=== PATIENT | female | born 1945 | race Caucasian/White ===

== ENCOUNTER → 2016-06-14 | Outpatient (CLI) | payer BC ==
[~2016-06-14] MED LIST: ACET-1256 PO; ADVIN10/60 INH; ALBUAER INH; ASCAUNK PO; ASCO1CAP3 PO; AZIT250T PO; CHOL2000 PO; CONJ0.3T3 PO; CYAN10005 PO; DICL-201 PO; FEXO1TAB49 PO; FLUO20CA34 PO; GABA1CAP PO; LEVO100T PO; LEVO112T2 PO; MAGN250T3 PO; MISCTAB78 PO; MONT1TAB3 PO; MULT-506 PO; OMEG10002 PO; OMEG10007 PO; OXYC-57 PO; POTA1TAB PO; SNG10 PO; TEMA15CA4 PO; VALA500T60 PO; WARF2TAB PO
== END | disposition home or self-care (01) ==
LOC: C.RDSM 13:15
PROVIDERS: ATTEND Physical Medicine & Rehabilitation Sports Medicine
DX: S73.015A Posterior dislocation of left hip, initial encounter (principal); X58.XXXA Exposure to other specified factors, initial encounter

== ENCOUNTER 2016-08-03 00:18 | Emergency (ER) | payer BC ==
[2016-08-03] VITALS (10 sets, daily range): BP systolic 112–161; BP diastolic 61–91; PULSE 69–81; TEMP 36.7; O2SAT 95–99; Ht 152.4 cm; Wt 61.2 kg
[~2016-08-03] VITALS: Ht 152.4 cm; Wt 61.2 kg
[~2016-08-03 00:18] MED LIST changes: -ASCO1CAP3 PO; -AZIT250T PO; -GABA1CAP PO; -LEVO100T PO; -MISCTAB78 PO; -MONT1TAB3 PO; -OMEG10002 PO; -OXYC-57 PO; -WARF2TAB PO
[2016-08-03] MEDS ORDERED: ONDANSETRON INJ 2 MG/ML 2 ML VIAL IV STA (00:35)
[2016-08-03] MEDS ORDERED: MoRPHine SULFATE 4 MG/ML 1 ML CARP\\VIAL IV PRN (00:45)
[2016-08-03] MEDS ORDERED: ALBUAER INH (00:51)
[2016-08-03] MEDS ORDERED: ASCO1CAP3 PO (00:52)
[2016-08-03] MEDS ORDERED: MONT1TAB3 PO (00:56)
[2016-08-03] MEDS ORDERED: PROPOFOL IV EMULSION 10 MG/ML 20 ML VIAL IV ONE ×2 (00:59→01:23)
--- NOTE | 2016-08-03 01:36 | EMERGENCY ROOM VISIT NOTE ---
ED Visit Note I was approached by my attending physician and asked to help assist in conscious sedation with closed reduction of a LEFT hip dislocation. Please refer to his dictation for entire historical and physical examination information. Procedure as follows: Verbal consent and written consent was obtained prior to procedure. Timeout was performed prior to procedure. After appropriate level of sedation was achieved, traction with internal rotation of the hips eventually provided anatomic alignment of the LEFT hip. Patient tolerated procedure well. No complications were met. Postreduction films confirm anatomic alignment.
[2016-08-03] MEDS ORDERED: ONDANSETRON HOME PACK 4MG OD TAB PO ONE (01:45)
[2016-08-03] MEDS ORDERED: OXYCODONE IR HOME PACK PO ONE (01:45)
--- NOTE | 2016-08-03 01:55 | EMERGENCY ROOM VISIT NOTE ---
History Report prepared by Kel: Lourdes Lopez Under the Supervision of: Dr. Felton Doe D.O. 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 She came to the ED via ambulance from home. The patient states that she fell asleep on the recliner and rolled the wrong when which caused her hip to come out. The patient states that she has experienced a left hip dislocation 5 times in the past with her most recent episode occurring last May. The patient states that her left leg has been sore to the touch recently. Her last time eating was around 1800. She denies abdominal pain along with any other pain. The patient had surgery on her left hip done on October 06, 2006. 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 A total of 10 systems reviewed and were otherwise negative. Past Medical & Surgical Medical Problems: (1) Left knee DJD (2) Lipoma of arm Family History No pertinent family history Social History Smoking Status: Never Smoker Alcohol Use: occasionally Marital Status: Current/Historical Medications Scheduled Ascorbic Acid (Vitamin C), 500 MG PO DAILY Cholecalciferol (Vitamin D3), 1 CAP PO QAM Cyanocobalamin (Vitamin B-12), 1,000 MCG PO QAM Diclofenac (Voltaren), 75 MG PO BID Estrog Conj/Medryoxyprog Acet (Prempro 0.3MG/1.5MG), 1 TAB PO Q2D Fexofenadine Hcl (Marely Allergy), 1 TAB PO QAM Fish Oil (Anderson-3), 1 CAP PO QPM Fluoxetine Hcl (Prozac), 20 MG PO QAM Fluticasone Prop/Salmeterol (Advair Diskus 100/50 60 Dose), 1 PUFF INH BID Levothyroxine Sodium (Synthroid), 112 MCG PO QAM Magnesium (Magnesium 250 mg), 1 TAB PO DINNER Montelukast Sodium (Singulair), 10 MG PO HS Multivitamin (Multivitamin), 1 TAB PO HS Potassium Gluconate (Potassium Gluconate), 2 TAB PO HS Temazepam (Restoril), 15 MG PO HS Scheduled PRN Acetaminophen (Tylenol), 1,000 MG PO QID PRN for Pain Albuterol Sulfate (Proventil Hfa), 2 PUFFS INH QID PRN for Shortness of Breath Valacyclovir (Valtrex), 500 MG PO DAILY PRN for COLD SORE Allergies Coded Allergies: No Known Allergies (Unverified , 08/03/16) Physical Exam Vital Signs Date Time Temp Pulse Resp B/P Pulse Ox O2 Delivery O2 Flow Rate FiO2 08/03/16 02:28 99 Nasal Cannula 2.0 08/03/16 02:24 69 18 138/71 95 08/03/16 01:57 36.7 75 18 141/68 96 Room Air 08/03/16 01:45 72 18 136/61 97 Nasal Cannula 2.0 08/03/16 01:35 73 18 135/70 96 Nasal Cannula 2.0 08/03/16 01:30 77 18 132/63 97 Nasal Cannula 2.0 08/03/16 01:28 08/03/16 01:26 08/03/16 01:25 76 14 112/87 96 Nasal Cannula 2.0 08/03/16 01:21 08/03/16 01:20 78 12 123/67 95 Nasal Cannula 2.0 08/03/16 01:16 08/03/16 01:15 77 14 142/81 96 Nasal Cannula 2.0 08/03/16 01:05 81 18 161/91 98 Nasal Cannula 2.0 08/03/16 00:51 97 Room Air 08/03/16 00:30 70 08/03/16 00:25 36.7 75 16 187/90 99 Room Air Physical Exam GENERAL: Patient is awake, alert, and in no acute distress. Patient is very anxious and uncomfortable appearing. Patient appears to be in significant pain. EYES: The conjunctivae are clear. The pupils are round and reactive. EARS, NOSE, MOUTH AND THROAT: The nose is without any evidence of any deformity. Mucous membranes are moist tongue is midline NECK: The neck is nontender and supple. RESPIRATORY: Normal respiratory effort is noted there is no evidence of wheezing rhonchi or rales CARDIOVASCULAR: Regular rate and rhythm noted there no murmurs rubs or gallops normal S1 normal S2 GASTROINTESTINAL: The abdomen is soft. Bowel sounds are present in all quadrants. Abdomen is nontender MUSCULOSKELETAL/EXTREMITIES: Left leg held in mild flexion. Left hip internally rotated and shortened. SKIN: Pulses symmetric. Skin is warm and dry. There is no obvious evidence of any rash. There are no petechiae, pallor or cyanosis noted. NEUROLOGIC: Patient is awake alert and oriented x3 strength is symmetric patellar reflexes are 2+ bilaterally Medical Decision & Procedures ER Provider Diagnostic Interpretation: X-ray results as stated below per interpretation by me FIRST LEFT HIP X-RAY IMPRESSION: Superior and posteriorly displaced left hip dislocation. Previous surgical replacement noted. POST-REDUCTION LEFT HIP X-RAY IMPRESSION: Anatomic alignment of left hip replacement. Medications Administered Medications (Trade) Dose Ordered Sig/Noe Route Start Time Stop Time Status Last Admin Dose Admin Morphine Sulfate (MoRPHine SULFATE INJ) 4 mg Q15M PRN IV 08/03/16 00:45 08/03/16 02:37 DC 08/03/16 00:55 4 MG Ondansetron HCl (Zofran Inj) 4 mg NOW STAT IV 08/03/16 00:35 08/03/16 00:36 DC 08/03/16 00:55 4 MG Propofol (Diprivan Iv Emulsion 20ml Vial) 200 mg STK-MED ONCE IV 08/03/16 00:59 08/03/16 01:02 DC 08/03/16 02:01 150 MG Ondansetron HCl (ZOFRAN ODT 4MG Home Pack) 1 homepack UD ONCE PO 08/03/16 01:45 08/03/16 01:46 DC 08/03/16 01:45 1 HOMEPACK Oxycodone HCl (Roxicodone Immediate Rel 5MG Home Pack) 1 homepack UD ONCE PO 08/03/16 01:45 08/03/16 01:46 DC 08/03/16 01:45 1 HOMEPACK Procedure Procedural Sedation Indication Left Hip Dislocation. Total time: 25 minutes. Written consent was obtained after the risks and benefits were explained to the patient, including, but not limited to aspiration, allergic reaction, breathing difficulties, cardiac complications, vomiting, pain, event recall, bleeding, and /or infection. Pre-sedation examination and paperwork completed. The patient was on 100% oxygen via NRB prior to the procedure. Continuos end tidal CO2 monitoring, pulse oximetry, and cardiac monitoring were utilized. Suction, airway equipment, medications, respiratory equipment, and appropriate personnel were prepared prior to the initiation of the procedure. A time out was taken. Sedation was achieved utilizing 150 mg of propofol. After I observed the patient had reached the appropriate level of sedation the main procedure was performed without complication. Sedation was discontinued and the monitoring continued. The patient recovered quickly from the effects of the medication without complication or adverse event. ED Course 0033: The patient was evaluated in room A9. A complete history and physical examination were performed. 0035: Ordered Ondansetron HCl 4 mg IV 0045: Ordered Morphine Sulfate 4 mg IV 0059: Ordered Propofol 200 mg IV 0104: I discussed the risks and benefits of the procedure at this time. She is in agreement with the treatment plan. 0111: Sadi Sarkar PA-C and I performed a reduction on the patient's left hip. A procedural sedation was performed prior to the reduction. Refer to the procedure note above for further details of the procedural sedation and refer to Sadi's note for further details about the reduction procedure. 0145: Ordered Oxycodone HCl 1 homepack PO. Ondansetron HCl 1 homepack PO 0148: Upon reevaluation, the patient is doing well. She is no longer on nasal cannula oxygen and her oxygen saturation is stable. I discussed the results and treatment plan with the patient and her . They verbalized agreement of the treatment plan. The patient was discharged home. Medical Decision Prior records reviewed and summarized above. Triage Nursing notes reviewed and agree them. The patient's history was concerning for traumatic injury. Differential diagnosis: Etiologies such as fracture, dislocation, neurovascular compromise, compartment syndrome, soft tissue injury, as well as others were entertained. The patient is a 71-year-old female who presented to the emergency department for an evaluation of atraumatic left hip dislocation. The patient is a history of hip replacement on the left hip some years ago. She has been unfortunate to have multiple episodes of hip dislocation complicating her course after surgery. The patient was treated with IV pain medication in the emergency Department as well as by the prehospital personnel. I discussed the patient's x- ray findings with her. She was evaluated for procedural sedation and I felt she was a good candidate for procedural sedation for closed hip reduction. I reviewed the patient's previous electronic medical records including the previous doses of sedation and she is received. She was treated with sedation in the emergency department and had reduction of the hip performed by KATARZYNA Mata. Please see his note for procedure details. The patient was reevaluated multiple times. On subsequent reevaluation she was feeling much better with less pain in the hip as well as being awake and alert and able to hold and excellent oxygen saturation with no supplemental oxygen. The patient was encouraged to rest and avoid any strenuous activity. She was encouraged to call her primary orthopedic physician in the morning to schedule follow-up appointment. She was also encouraged to return to the emergency department immediately if symptoms change worsen or the need arises. Otherwise she was encouraged to only take clear liquids tonight and advance her diet as tolerated. Impression Primary Impression: Posterior dislocation of left hip Scribe Attestation The scribe's documentation has been prepared under my direction and personally reviewed by me in its entirety. I confirm that the note above accurately reflects all work, treatment, procedures, and medical decision making performed by me. Departure Information Dispostion Home / Self-Care Referrals RV. Kinney MD (PCP) Forms HOME CARE DOCUMENTATION FORM, IMPORTANT VISIT INFORMATION, WORK / SCHOOL INSTRUCTIONS Patient Instructions ED Hip Replace Dislocation Reduc, ED Sedation Procedural Discon, My [facility] Additional Instructions Rest and avoid any strenuous activity. Continue using your hip pillow and sling as instructed. Continue all medications as prescribed. Call your primary orthopedic physician to schedule a follow-up appointment. I would recommend Aleve clear liquids overnight and advance her diet in the morning as tolerated. Return to the emergency department immediately if symptoms change worsen or the need arises. Problem Qualifiers Primary Impression: Posterior dislocation of left hip Encounter type: initial encounter Qualified Codes: S73.015A - Posterior dislocation of left hip, initial encounter
--- NOTE | 2016-08-03 06:34 | DIAGNOSTIC IMAGING REPORT ---
LEFT PELVIS/UNILATERAL HIP 2-3VIEWS CLINICAL HISTORY: fall trauma COMPARISON: None. DISCUSSION: Superior dislocation of a left hip prosthetic. Femoral shaft has migrated superiorly. Acetabular cup is intact. There is no evidence for soft tissue swelling. IMPRESSION: Dislocation left hip prosthetic Electronically signed by: Kaleb Werner M.D. 08/03/2016 6:33 AM Dictated Date/Time: 08/03/2016 6:32 AM
--- NOTE | 2016-08-03 07:15 | DIAGNOSTIC IMAGING REPORT ---
LEFT HIP UNILATERAL 2 VIEWS CLINICAL HISTORY: a9b dislocation COMPARISON: None. DISCUSSION: The bones and joint spaces appear intact. There is no evidence of fracture, dislocation or bony disease. Purposes. Dislocation has been reduced. Alignment is anatomic. IMPRESSION: Anatomic alignment status post closed reduction Electronically signed by: Kaleb Werner M.D. 08/03/2016 7:13 AM Dictated Date/Time: 08/03/2016 7:13 AM
[2016-10-29] MEDS ORDERED: MISCTAB78 PO (08:54)
[2016-10-29] MEDS ORDERED: LEVO100T PO (08:54)
[2017-02-22] MEDS ORDERED: OMEG10002 PO (15:39)
[2017-02-22] MEDS ORDERED: DICL-201 PO (15:39)
== END 2016-08-03 02:27 | disposition home or self-care (01) ==
LOC: EDBD 00:18 → C.EDA 00:21
DX: M24.452 Recurrent dislocation, left hip (principal); X50.1XXA Overexertion from prolonged static or awkward postures, initial encounter; Y92.019 Unspecified place in single-family (private) house as the place of occurrence of the external cause; Z96.642 Presence of left artificial hip joint; M17.9 Osteoarthritis of knee, unspecified; Z79.899 Other long term (current) drug therapy

== ENCOUNTER → 2016-09-08 | Outpatient (CLI) | payer BC ==
[~2016-09-08] MED LIST changes: -ASCAUNK PO; +ASCO1CAP3 PO; +AZIT250T PO; +GABA1CAP PO; +LEVO100T PO; +MISCTAB78 PO; +MONT1TAB3 PO; +OMEG10002 PO; +OXYC-57 PO; -SNG10 PO; +WARF2TAB PO
[2016-09-08 09:39] LABS: BASO % 0.5 %; BASO ABS # 0.03 K/uL (0-0.2); COMPLETE YES; EOS % 4.1 %; HEMATOCRIT 39.1 % (37-47); IG% 0.3 %; LYMPH % 26.1 %; LYMPH ABS # 1.58 K/uL (1.2-3.4); MEAN CELL VOLUME 102.1 fL (80-100); MEAN CORPUSCULAR HEMOGLOBIN 34.5 pg (25-34); MEAN CORPUSCULAR HGB CONC 33.8 g/dl (32-36); MEAN PLATELET VOLUME 10.4 fL (7.4-10.4); MONO % 7.4 %; NEUT % 61.6 %; PLATELET COUNT 161 K/uL (130-400); RED BLOOD COUNT 3.83 M/uL (4.2-5.4); WHITE BLOOD COUNT 6.05 K/uL (4.8-10.8)
[2016-09-08 10:18] LABS: ALT/SGPT 42 U/L (12-78); AST/SGOT 35 U/L (15-37); BLOOD UREA NITROGEN 21 mg/dl (7-18); BUN/CREATININE RATIO 26.1 (10-20); CALCIUM 9.6 mg/dl (8.5-10.1); CARBON DIOXIDE 30 mmol/L (21-32); CHLORIDE 106 mmol/L (98-107); GLUCOSE 78 mg/dl (70-99); POTASSIUM 4.2 mmol/L (3.5-5.1); SODIUM 141 mmol/L (136-145)
[2016-09-08 10:27] LABS: ALB/GLOB RATIO 1.3 (0.9-2); ALKALINE PHOSPHATASE 81 U/L (45-117); THYROID STIMULATING HORMONE 0.251 uIu/ml (0.300-4.500)
== END | disposition home or self-care (01) ==
LOC: C.LAB1850 08:51
PROVIDERS: ATTEND Internal Medicine
DX: E53.8 Deficiency of other specified B group vitamins (principal); E03.9 Hypothyroidism, unspecified; F41.8 Other specified anxiety disorders; J45.909 Unspecified asthma, uncomplicated

== ENCOUNTER → 2016-09-10 | Outpatient (CLI) | payer BC ==
--- NOTE | 2016-09-10 15:35 | MAMMOGRAPHY REPORT ---
BILATERAL DIGITAL SCREENING MAMMOGRAM WITH CAD: 09/10/2016 CLINICAL HISTORY: Routine screening. Patient has no complaints. TECHNIQUE: Current study was also evaluated with a Computer Aided Detection (CAD) system. Bilatera l CC and MLO views were obtained. COMPARISON: Comparison is made to exams dated: 09/05/2015 mammogram, 08/30/2014 mammogram, 08/24/2013 m ammogram, 08/04/2012 mammogram, 07/23/2011 mammogram, and 06/26/2010 mammogram - [facility] enter. BREAST COMPOSITION: The tissue of both breasts is heterogeneously dense, which may obscure small ma sses. FINDINGS: No suspicious masses, calcifications, or areas of architectural distortion are noted in e ither breast. There has been no significant interval change compared to prior exams. Bilateral duy gn-appearing calcifications are not significantly changed, including grouped calcifications within t he left lateral posterior breast at 3:00 which are stable on MLO views dating back to at least the 2 015 exam. Nodular asymmetry in the left medial breast is also stable. IMPRESSION: ACR BI-RADS CATEGORY 2: BENIGN There is no mammographic evidence of malignancy. A 1 year screening mammogram is recommended. The p atient will receive written notification of the results. Approximately 10% of breast cancers are not detected with mammography. A negative mammographic repor t should not delay biopsy if a clinically suggestive mass is present. Susan Prince M.D. /:09/10/2016 14:06:45 Banquet Pilot: Earnestine BEAUCHAMP)(Luis), [facility] letter sent: Normal 1/2 BI-RADS Code: ACR BI-RADS Category 2: Benign
== END | disposition home or self-care (01) ==
LOC: C.MAMM 10:28
PROVIDERS: ATTEND Obstetrics & Gynecology
DX: Z12.31 Encounter for screening mammogram for malignant neoplasm of breast (principal)

== ENCOUNTER → 2016-09-13 | Outpatient (CLI) | payer BC | END | disposition home or self-care (01) | LOC: C.RDSM 07:30 | PROVIDERS: ATTEND Physical Medicine & Rehabilitation Sports Medicine | DX: M16.9 Osteoarthritis of hip, unspecified (principal); M17.0 Bilateral primary osteoarthritis of knee; Z96.652 Presence of left artificial knee joint ==

== ENCOUNTER → 2016-10-28 | Outpatient (CLI) | payer BC ==
--- NOTE | 2016-10-28 12:44 | DIAGNOSTIC IMAGING REPORT ---
CHEST 2 VIEWS ROUTINE HISTORY: PRE OP TESTING COMPARISON: Chest 05/15/2016. FINDINGS: The lungs are clear. Cardiac silhouette is normal in size. No pleural effusions. No pneumothorax. IMPRESSION: No acute process. Electronically signed by: Martin Lin M.D. 10/28/2016 12:43 PM Dictated Date/Time: 10/28/2016 12:42 PM
--- NOTE | 2016-11-05 09:11 | CODING QUERY MEDICAL NECESSITY ---
CQSUPPORTING DIAGNOSIS NEEDED A supporting diagnosis is required for the test/procedure performed on this patient in order for us to be reimbursed by the patient's insurance. Please provide a supporting diagnosis for the following test/procedure listed below next to the test name along with your signature. *If there is no additional diagnosis for this patient that would support the following test/procedure please document that below next to the test/procedure. Test(s)/Procedure(s) that require a supporting diagnosis: DOS 10/28/16 URINE CULTURE ORDERED BY JOHNNIE MALIK Provider Signature: Date: Thank you Viktoriya Devlin Health Information Management Once completed, please kindly fax back to [phone] For questions please call [phone]
== END | disposition home or self-care (01) ==
LOC: C.CPL 11:18
PROVIDERS: ATTEND Physician Assistant
DX: Z01.818 Encounter for other preprocedural examination (principal); Z11.59 Encounter for screening for other viral diseases; M25.352 Other instability, left hip

== ENCOUNTER 2016-11-17 06:21 | Inpatient (IN) | payer BC, OTHER ==
[2016-10-28 13:01] LABS: BASO % 0.5 %; BASO ABS # 0.04 K/uL (0-0.2); COMPLETE YES; EOS % 2.6 %; HEMATOCRIT 38.7 % (37-47); IG% 0.1 %; LYMPH % 25.7 %; LYMPH ABS # 1.87 K/uL (1.2-3.4); MEAN CELL VOLUME 103.2 fL (80-100); MEAN CORPUSCULAR HEMOGLOBIN 34.4 pg (25-34); MEAN CORPUSCULAR HGB CONC 33.3 g/dl (32-36); MEAN PLATELET VOLUME 10.3 fL (7.4-10.4); NEUT % 64.1 %; PLATELET COUNT 168 K/uL (130-400); RED BLOOD COUNT 3.75 M/uL (4.2-5.4); WHITE BLOOD COUNT 7.29 K/uL (4.8-10.8)
[2016-10-28 13:04] LABS: URINE APPEARANCE CLEAR (CLEAR); URINE BILIRUBIN NEG (NEG); URINE COLOR DK YELLOW; URINE NITRITE NEG (NEG); URINE PH 5.5 (4.5-7.5); URINE SPECIFIC GRAVITY 1.022 (1.000-1.030); UROBILINOGEN NEG (NEG)
[2016-10-28 13:09] LABS: BLOOD UREA NITROGEN 17 mg/dl (7-18); BUN/CREATININE RATIO 21.4 (10-20); C-REACTIVE PROTEIN 1.24 mg/dl (0-0.29); CALCIUM 9.1 mg/dl (8.5-10.1); CARBON DIOXIDE 28 mmol/L (21-32); CHLORIDE 107 mmol/L (98-107); GLUCOSE 74 mg/dl (70-99); POTASSIUM 4.2 mmol/L (3.5-5.1); SODIUM 142 mmol/L (136-145)
[2016-10-28 13:10] LABS: PROTHROMBIN TIME (PATIENT) 10.6 SECONDS (9.0-12.0)
[2016-10-28 13:11] LABS: MANUAL MICROSCOPIC REQUIRED? NO; REVIEW REQ? NO
[2016-10-29 08:56] VITALS: BMI 23.0
--- NOTE | 2016-10-29 20:07 | HISTORY & PHYSICAL EXAMINATION ---
DATE OF ADMISSION: 11/17/2016 PREOPERATIVE HISTORY AND PHYSICAL CHIEF COMPLAINT: Left hip recurrent instability. HISTORY OF PRESENT ILLNESS: This 71-year-old white female presents to the office with complaints of instability of her left hip. She previously had a left total hip arthroplasty performed in 2006. She has had several dislocations over the last 10 years. Her most recent dislocations were May 2016 and September 2016. This is approximately her 6th total hip dislocation. She is ready for revision at this point. She ambulates without difficulty but in fear of having it re-dislocate. No numbness or tingling. No apparent pain. She ambulates without a cane. X-rays have been obtained. She elects to proceed with left hip poly liner exchange with locked liner versus revision of the left acetabulum on 11/17/2016. PAST MEDICAL HISTORY: Significant for asthma, osteoarthritis, spinal stenosis, SI joint dysfunction, and hypothyroidism. CURRENT MEDICATIONS: Marely 180 mg p.o. daily, Feosol iron 325 mg p.o. daily, fish oil daily, multivitamin daily, Osteo Bi-Flex daily; Prempro every other day, unknown dose. Prozac unknown dose daily, Restoril p.o. at bedtime p.r.n., Singulair 10 mg p.o. q.p.m., Synthroid 112 mcg p.o. daily, Valtrex, unknown dose p.r.n., vitamin B12 and C daily, Voltaren 75 mg p.o. b.i.d. ALLERGIES: NKDA. PREVIOUS SURGERIES: Epidural steroid injections, carpal tunnel release, left hip replacement 2006, right knee arthroscopy 2002, right knee ACL reconstruction 2002, left total knee arthroplasty 2015, right total hip surgery 2007, lipoma excision 2015. FAMILY HISTORY: Significant for breast cancer, liver cancer, and [place]. SOCIAL HISTORY: The patient is . Employed at [employer]. No tobacco use, occasional ETOH use. REVIEW OF SYSTEMS: Significant for above-stated conditions, otherwise unremarkable. PHYSICAL EXAMINATION: GENERAL: Well-developed, well-nourished elderly white female in no acute distress. Sitting in a chair. Alert and oriented. SKIN: Warm and dry with good turgor. No rashes or lesions. No ecchymosis or erythema. HEENT: Normocephalic, atraumatic. Eyes - PERRLA, EOMI. Nares patent bilaterally without turbinate enlargement. Oropharynx without erythema or exudate. No lesions noted. Uvula midline. Oral mucosa moist. Fair dentition. HEART: RRR. No MGR. LUNGS: Clear to auscultation bilaterally. No crackles, rhonchi or wheezing. Good air movement. ABDOMEN: Bowel sounds present x4, soft, nontender. No organomegaly. MUSCULOSKELETAL: Left hip has no obvious asymmetry or deformity. Supple motion. No pain with palpation over the anterior flexion crease or greater trochanter. Ambulatory with a normal gait. Mild leg length discrepancy with the left leg being slightly long. Strength is 5/5 with fair quad tone. NEUROLOGIC: Gross sensation is intact across both lower extremities by soft touch. Peripheral pulses are 2+. DATA: Radiographic imaging previously obtained shows a well-located hip. Good positioning of her cup. IMPRESSION: Left total hip arthroplasty, recurrent instability. PLAN: The patient and her were educated regarding today's findings. Conservative care measures were discussed and informed written consent was obtained to proceed with left hip poly liner exchange with locked liner versus revision of the acetabulum. Preoperative lab work, EKG, and chest x-ray have been ordered. Medical clearance was requested from her PCP. Anticipate discharge to home with 2 weeks of home health services using [facility]. Sed rate and CRP were also ordered. She already has a walker and a cane. Postoperative prescriptions for Percocet and Coumadin will be provided at discharge from the hospital. TONE
[~2016-11-17] VITALS: Ht 152.4 cm; Wt 54.5 kg
[2016-11-17] VITALS (7 sets, daily range): BP systolic 109–186; BP diastolic 56–87; PULSE 53–67; TEMP 36.5–36.8; O2SAT 93–100; Ht 152.4 cm; Wt 54.5 kg
[~2016-11-17 06:21] MED LIST changes: -AZIT250T PO; +CEFAZOLIN 2000 MG/60 ML D5W 60 ML IV SCH; -GABA1CAP PO; +LACTATED RINGER'S 1000ML 1,000 ML IV SCH; +LACTATED RINGER'S 1000ML IV SCH; +LACTATED RINGER'S 500 ML IV SCH; -LEVO112T2 PO; -OMEG10002 PO; -OXYC-57 PO; +ROPIVACAINE 5MG/ML 30 ML 150 MG, BUPIVACAINE/EPINEPHR 0.5% MPF 30 ML, KETOROLAC TROMETH... INFIL SCH; +TRANEXAMIC ACID INJ 1,000 MG in SODIUM CHLORIDE 0.9% 100ML 100 ML IV SCH; -WARF2TAB PO
--- NOTE | 2016-11-17 06:22 | History & Physical Bridge Note ---
H&P Re-Evaluation Bridge Note: I have examined the patient, reviewed the History & Physical and in the interval since the performance of the History & Physical I have noted the following changes of clinical significance: No changes noted
[2016-11-17] MEDS ORDERED: BUPIVACAINE 0.5 % 5 MG/1 ML PF 10ML VIAL ONE (06:29)
[2016-11-17] MEDS ORDERED: FENTANYL CITRATE INJ 50 MCG/1 ML 2 ML VIAL ONE (06:40)
[2016-11-17] MEDS ORDERED: MIDAZOLAM HCL 1 MG/ML 2ML VIAL ONE (06:40)
[2016-11-17] MEDS ORDERED: EpHEDrine SULFATE INJ 50 MG/ML AMP IV PRN (07:30)
[2016-11-17] MEDS ORDERED: ONDANSETRON INJ 2 MG/ML 2 ML VIAL IV PRN ×2 (07:30→10:45)
[2016-11-17] MEDS ORDERED: ATROPINE SULFATE 0.1 MG/ML 5ML SYR IV PRN (07:30)
[2016-11-17] MEDS ORDERED: FENTANYL CITRATE INJ 50 MCG/1 ML 2 ML VIAL IV PRN (07:30)
[2016-11-17] MEDS ORDERED: POVIDONE-IODINE OP SOLN 30 ML BTL ONE (08:37)
[2016-11-17] MEDS ORDERED: ORTHO JOINT ANESTHETIC ONE (08:37)
[2016-11-17] MEDS ORDERED: PROPOFOL IV EMULSION 10 MG/ML 20 ML VIAL IV ONE ×2 (09:52)
[2016-11-17] MEDS ORDERED: LIDOCAINE HCL 2% 2 ML VIAL (20MG/ML) ONE (09:52)
--- NOTE | 2016-11-17 10:29 | [facility] Post Operative Brief Note ---
Immediate Operative Summary Operative Date Nov 17, 2016. Pre-Operative Diagnosis Left Hip Recurrent Instability, Status Post Left Total Hip Arthroplasty Post-Operative Diagnosis Left Hip Recurrent Instability, Status Post Left Total Hip Arthroplasty Procedure(s) Performed Left Hip Poly Exchange with Locked Liner Surgeon Dr. Card Roustabout Surgeon(s) Dr. Clark Moon (Fellow)/JOHNNIE Mcknight Estimated Blood Loss 50 ml Findings stable implants/slight poly deformity/hip very stable with EUA Fluids (cc crystalloids) 1000cc Specimens A. Removed Hardware Left Hip (femoral head and liner) Drains none Anesthesia spinal Complication(s) None Disposition Recovery Room / PACU
[2016-11-17] MEDS ORDERED: ACETAMINOPHEN 325 MG TAB PO PRN (10:45)
[2016-11-17] MEDS ORDERED: NURSING VERBAL MED ORDER ONE (10:45)
[2016-11-17] MEDS ORDERED: DiphenhydrAMINE HCL 50 MG/ML VIAL IV PRN (10:45)
[2016-11-17] MEDS ORDERED: BISACODYL 10 MG SUPP PR PRN (10:45)
[2016-11-17] MEDS ORDERED: MAGNESIUM HYDROXIDE SUSP 30 ML UDC PO PRN (10:45)
[2016-11-17] MEDS ORDERED: MoRPHine SULFATE 2 MG/ML CARP IV PRN (10:45)
[2016-11-17] MEDS ORDERED: METOCLOPRAMIDE HCL INJ 5 MG/ML 2 ML VIAL IV PRN (10:45)
[2016-11-17] MEDS ORDERED: ALUMINUM/MAGNESIUM/SIMETH (MAALOX MAX) 30 ML UDC PO PRN (10:45)
[2016-11-17] MEDS ORDERED: ALBUTEROL HFA 8 GM INHALER INH PRN (10:45)
[2016-11-17] MEDS ORDERED: MEPERIDINE HCL 25 MG/ML CARP ONE (10:46)
--- NOTE | 2016-11-17 10:55 | OPERATIVE REPORT ---
DATE OF OPERATION: 11/17/2016 PREOPERATIVE DIAGNOSIS: Recurrent instability, left total hip replacement traumatically induced. POSTOPERATIVE DIAGNOSIS: Same. PROCEDURE: Exchange of poly liner to GVF polyethylene constrained acetabular liner, DePuy Synthes. SURGEON: Dr. Card. Assitants Devorah/Matteo PERIOPERATIVE SITUATION: Medically cleared female who has had multiple episodes based on postural indiscretion and trauma to her left hip. Her last hip dislocation, despite advice occurred with her sleeping in a La-Z-Boy lounge chair in a position. In order to curl up in the chair she had her hip flexed over 120 degrees. At all times with the reduction of her hip it always required virtually general anesthesia due to the overall stability to the hip. During this procedure she was tested with the hip open and the hip was virtually nondislocatable. Of note, she does have significant lumbar spine degenerative disease and degenerative scoliosis which may be likely causing her to use her hip more for movement and creating the increased risk. At no time has she had any kind of infection or any problems that way. Her sed rate is 4, her C-reactive protein is 1.2. She does have chronic disease in the form of thyroid disease and asthma, as such the CRP is likely elevated based on that. It was entertained not to do cultures during the procedure as the fluid was clear and minimal. There was no sign of any femoral or acetabular loosening. Observation of the poly did reveal some superolateral edge wear on the lip liner. There were no other findings noted. OPERATION AND FINDINGS: PROCEDURE: The patient appropriately identified, site verified, consent verified, 2 grams of Ancef confirmed as being given. The left lower extremity was prepped and draped in usual routine fashion. At no time did the hip dislocate. The old incision was utilized. Full thickness flaps raised, scar tissue debrided and the IT band and the gluteus marika fascia T'd. There was very poor capsule posteriorly. The hip abductors were intact. The short external rotators were deficient. There was clear yellow fluid, minimal. It was elected as above, not to culture this based on all the detail mentioned above. The hip was then dislocated, the femoral head was removed. Anterior capsule then released, the liner was then removed. Everything was irrigated with Betadine and Pulsavac. The acetabulum was thoroughly checked. It was not loose. Once this was all cleaned of soft tissue along the margin the constrained liner was then seated. Once that was done, the head was seated with a locking liner in appropriate position. The head was then reduced, snapped into place and the locking liner seated with good fixation. There was good stability. There were no issues. The wound was then irrigated with Betadine, Pulsavac and then closed with #2 Vicryl and stainless steel clips. Appropriate soft tissue dressing applied. It should be mentioned to get the femoral neck out of the way for getting the liner in required a fair amount of anterior release and hip hyperflexion and internal rotation and traction on the femoral neck at the base. At this point in time, the patient's blood loss was estimated at 50 mL, 1000 mL of fluid. SUMMARY OF IMPLANTS: Articul-Coleman femoral head 28 +1.5 GVF polyethylene constrained liner 4+ neutral, 28 mm internal diameter, 50 mm outer diameter. I attest to the content of the Intraoperative Record and any orders documented therein. Any exceptions are noted below. MTDD
[2016-11-17] MEDS ORDERED: WARF2TAB PO (11:24)
[2016-11-17] MEDS ORDERED: OXYC-57 PO (11:24)
--- NOTE | 2016-11-17 11:32 | PROGRESS NOTE ---
DATE: 11/17/2016 DATE: 11/17/2016. SUBJECTIVE: Postop check. The patient seen in recovery room. She denies chest pain, shortness of breath, fever, chills, nausea, vomiting or headache. Vital signs are stable. She is afebrile. The femoral sciatic nerve is intact. Wound dressing clean, dry and intact. X-ray pending. ASSESSMENT: Doing well status post poly lock liner exchange for recurrent instability. Continue with present care pathway. We will follow up on rounds. Mobilize to tolerance.
--- NOTE | 2016-11-17 11:38 | Anesthesiology Progress Note ---
Anesthesia Post Op Note Date & Time Nov 17, 2016 at 11:37 Vital Signs Pain Intensity: 0 Vital Signs Past 12 Hours Date Time Temp Pulse Resp B/P (MAP) Pulse Ox O2 Delivery O2 Flow Rate FiO2 11/17/16 11:30 50 16 150/67 99 Nasal Cannula 2 11/17/16 11:15 36.2 48 17 152/77 99 Nasal Cannula 2 11/17/16 11:05 51 18 136/69 99 Nasal Cannula 2 11/17/16 10:55 56 17 147/72 98 Nasal Cannula 2 11/17/16 10:45 67 17 166/78 99 Nasal Cannula 2 11/17/16 10:35 36.0 62 22 117/68 99 Nasal Cannula 2 11/17/16 06:56 36.7 59 18 182/87 97 Room Air Notes Mental Status: alert / awake / arousable, participated in evaluation Pt Amnestic to Procedure: Yes Nausea / Vomiting: adequately controlled Pain: adequately controlled Airway Patency, RR, SpO2: stable & adequate BP & HR: stable & adequate Hydration State: stable & adequate Neuraxial Anesthesia: was administered, sensory block is resolving Anesthetic Complications: no major complications apparent
--- NOTE | 2016-11-17 11:40 | OPERATIVE REPORT ---
DATE OF OPERATION: 11/17/2016 PREOPERATIVE DIAGNOSIS: Left hip recurrent instability, status post left total hip arthroplasty. POSTOPERATIVE DIAGNOSIS: Left hip same. PROCEDURE: Left hip open poly exchange with locked liner. SURGEON: Dr. Card. VP RESPIRATORY: Dr. Clark Moon. SECOND VP RESPIRATORY: Elfego Felipe PA-C. HISTORY OF PRESENT ILLNESS: This 71-year-old white female presented to the office with complaints of recurrent left hip instability after previous total hip arthroplasty 8 years ago. She has had 6 episodes of dislocation since then. She elected to proceed with surgical intervention after being educated about potential risks and outcomes. OPERATION: The patient was administered spinal anesthetic and then taken to the operating room where she was given sedation. She was prepped and draped in the usual sterile fashion. Please see Dr. Card's operative report for specifics of the procedure. I was present for the entire case from initial patient positioning through final wound closure. Assistance was provided in tissue retraction, hemostasis, implant replacement, and final wound closure. The patient was taken to the recovery room in satisfactory condition. I attest to the content of the Intraoperative Record and any orders documented therein. Any exception s are noted below.
--- NOTE | 2016-11-17 12:23 | DIAGNOSTIC IMAGING REPORT ---
PELVIS 1 OR 2 VIEW ROUTINE CLINICAL HISTORY: Left hip s/p liner replacement COMPARISON STUDY: 05/15/2016 FINDINGS: There is a total left hip arthroplasty. By history the acetabular cup liner was replaced. There is no dislocation. There are no acute fractures. There is a single screw and washer within the metadiaphyseal junction of the distal right femur. IMPRESSION: Postsurgical change. No acute fractures or dislocations. Electronically signed by: Kraig Minor M.D. 11/17/2016 12:22 PM Dictated Date/Time: 11/17/2016 12:21 PM
[2016-11-17] MEDS ORDERED: OXYCODONE HCL IR 5 MG TAB (IMMEDIATE RELEASE) ONE (12:39)
[2016-11-17] MEDS ORDERED: MoRPHine SULFATE 4 MG/ML 1 ML CARP\\VIAL IV PRN (13:15)
[2016-11-17] MEDS ORDERED: D5W AND 1/2NSS + 20MEQ KCL 1,000 ML IV SCH (13:30)
[2016-11-17] MEDS: OXYCODONE HCL IR 5 MG TAB (IMMEDIATE RELEASE) PO PRN (13:37)
[2016-11-17] MEDS: ACETAMINOPHEN IV 1,000 MG in EMPTY BAG 0 ML IV SCH ×2 (13:37→21:46)
[2016-11-17] MEDS: KETOROLAC TROMETHAMINE 15 MG/ML VIAL IV. SCH ×2 (14:40→19:56)
[2016-11-17] MEDS: GABAPENTIN 300 MG CAP PO SCH ×2 (14:40→21:44)
[2016-11-17] MEDS ORDERED: VANCOMYCIN INJ 800 MG in SODIUM CHLORIDE 0.9% 250ML 250 ML IV SCH (15:00)
--- NOTE | 2016-11-17 15:06 | Anesthesiology Progress Note ---
Anesthesia Progress Note Date of Service Nov 17, 2016. Progress Notes The patient is s/p L hip surgery POD #0. Upon being transported to her floor bed , the patient noted to have discomfort on the dorsal aspect of her R great toe. I evaluated the patient earlier, but she still had residual numbness 2/2 her spinal block. I waited a couple hours before re-assessing the patient. On my second visit, the patient had regained her motor and sensory block from her spinal anesthesia. The patient had improved pain in her R great toe from my previous visit. She stated her great toe "feels like the nail was cut too short. " There was no noticeable deformity or erythema on her R great toe. The family noted that the patient was walking post-operatively, and there was no gait disturbance. On physical examination, the patient did have pain on the dorsal surface of her great toe with palpation. Pedal pulses were 2/4 bilaterally. The patient had equal 5/5 plantar and dorsal flexion. The patient had 5/5 knee flexion and extension on the RLE but 4/5 knee flexion and extension on the LLE. There was a negative Laseque test. There was no drop foot noted. There was no obvious bruising or point tenderness in the patient's lower back where the spinal was performed. I spoke to the patient, and I counseled her on possible neuropathic pain. I ordered her gabapentin 300mg p.o. tid for 2 days. The patient was otherwise without complaints. I told the patient to alert her nurse if her symptoms worsened. I will follow-up on the patient tomorrow.
[2016-11-17] MEDS ORDERED: AZIT250T PO (15:54)
[2016-11-17] MEDS ORDERED: WARFARIN SOD 5 MG TAB PO SCH (16:00)
[2016-11-17] MEDS ORDERED: TRANEXAMIC ACID INJ 1,000 MG in SODIUM CHLORIDE 0.9% 100ML 100 ML IV SCH (16:30)
[2016-11-17] MEDS: FERROUS GLUCONATE 324 MG TAB PO SCH (17:38)
[2016-11-17] MEDS: DOCUSATE SODIUM 100 MG CAP PO SCH (21:44)
[2016-11-17] MEDS: MONTELUKAST SOD 10 MG TAB PO SCH (21:44)
[2016-11-17] MEDS: FLUTICASONE/SALMETEROL 100/50 (ADVAIR) 14 PUFF/1 INHALER INH SCH (21:44)
[2016-11-17] MEDS: TEMAZEPAM 15 MG CAP PO SCH (21:45)
[2016-11-18] MEDS: KETOROLAC TROMETHAMINE 15 MG/ML VIAL IV. SCH ×2 (02:28→08:59)
[2016-11-18 03:55] VITALS: BP 113/64; PULSE 71; TEMP 36.7; O2SAT 94
[2016-11-18] MEDS: LEVOTHYROXINE 100 MCG TAB PO SCH (05:31)
[2016-11-18] MEDS: ACETAMINOPHEN IV 1,000 MG in EMPTY BAG 0 ML IV SCH (05:33)
[2016-11-18 05:47] LABS: BASO % 0.4 %; BASO ABS # 0.02 K/uL (0-0.2); COMPLETE YES; EOS % 3.5 %; HEMATOCRIT 33.7 % (37-47); IG% 0.2 %; LYMPH % 24.2 %; LYMPH ABS # 1.31 K/uL (1.2-3.4); MEAN CELL VOLUME 103.7 fL (80-100); MEAN CORPUSCULAR HEMOGLOBIN 33.2 pg (25-34); MEAN PLATELET VOLUME 9.7 fL (7.4-10.4); MONO % 9.2 %; NEUT % 62.5 %; PLATELET COUNT 150 K/uL (130-400); RED BLOOD COUNT 3.25 M/uL (4.2-5.4); WHITE BLOOD COUNT 5.41 K/uL (4.8-10.8)
[2016-11-18 06:06] LABS: PROTHROMBIN TIME (PATIENT) 10.6 SECONDS (9.0-12.0)
[2016-11-18 06:22] LABS: BUN/CREATININE RATIO 15.8 (10-20); CREATININE 0.78 mg/dl (0.60-1.20); POTASSIUM 4.1 mmol/L (3.5-5.1)
[2016-11-18] MEDS ORDERED: VANCOMYCIN INJ 500 MG in SODIUM CHLORIDE 0.9% 100ML 100 ML IV ONE (07:30)
[2016-11-18] MEDS ORDERED: DEXAMETHASONE INJ 10 MG in SYRINGE 0 ML IV SCH (07:30)
[2016-11-18 07:41] VITALS: BP 108/66; PULSE 67; TEMP 36.7; O2SAT 96
--- NOTE | 2016-11-18 07:44 | Anesthesiology Progress Note ---
Anesthesia Post Op Note Date & Time Nov 18, 2016 at 07:42 Vital Signs Pain Intensity: 0.0 Vital Signs Past 12 Hours Date Time Temp Pulse Resp B/P (MAP) Pulse Ox O2 Delivery O2 Flow Rate FiO2 11/18/16 07:41 36.7 67 16 108/66 (80) 96 Room Air 11/18/16 03:55 36.7 71 16 113/64 (80) 94 Room Air 11/17/16 23:25 36.8 67 16 109/56 (73) 93 Room Air Notes Mental Status: alert / awake / arousable, participated in evaluation Pt Amnestic to Procedure: Yes Nausea / Vomiting: adequately controlled Pain: adequately controlled Airway Patency, RR, SpO2: stable & adequate BP & HR: stable & adequate Hydration State: stable & adequate Neuraxial Anesthesia: was administered, sensory block resolved Anesthetic Complications: no major complications apparent Pt has been having pain in the right great toe since spinal block wore off yesterday. States this morning that it feels better compared to yesterday and compares the pain to a tooth ache. Pt has no motor deficits and has been out of bed walking with no problems.
--- NOTE | 2016-11-18 07:47 | PROGRESS NOTE ---
DATE: 11/18/2016 DATE: 11/18/2016. SUBJECTIVE: Postop day 1 status post revision of left total hip replacement, acetabular liner from unconstrained to constrained. She is doing well. She has minimal pain in her left hip. Her main issue is neuropathic type pain in her right leg. This started secondary to spinal anesthesia. She has known spinal stenosis and scoliosis degenerative back. At this point in time she has a burning dysesthetic pain in her right foot. She denies any feelings of weakness. She denies any same feelings in the left leg. She denies chest pain, shortness of breath, fever, chills, nausea, vomiting or headache. OBJECTIVE: Vital signs are stable. She is afebrile. Wound dressing clean, dry and intact. Abdomen soft, nontender. Calves nontender. Detailed neurologic examination reveals intact dorsiflexion, plantarflexion, inversion, eversion of both ankles, intact quad function both legs, intact hip abduction both legs. Sensation is normal on the left, has dysesthetic pain in the medial and plantar side of her left foot, has burning dysesthesia in both toes. Examination of the toes reveals no sign of any gout or any kind of traumatic injury. ASSESSMENT: Doing reasonably well status post left hip procedure for constrained unconstrained liner secondary to traumatic instability of her left hip. At this point in time her biggest issue is her dysesthetic pain in the right foot. She was started on gabapentin per Dr. Hinton anesthesiologist yesterday. We will continue that. We will add dexamethasone today. PT/OT. Social service consults. Continue with progress towards potential discharge tomorrow. Mobilize. We will give additional dose of vancomycin today since this is a revision case. We will also discharge on azithromycin 1 dosepak. This is secondary to revision and secondary to the need of the dexamethasone for her dysesthetic foot pain. Continue with present care pathway.
--- NOTE | 2016-11-18 08:44 | Orthopedic Progress Note ---
Orthopedic Progress Note Date of Service Nov 18, 2016. Subjective Post OP Day: 1 Reports: feeling well, complaints (Right great toe pain), Denies: chest pain, SOB, nausea / vomiting, light headedness, calf pain Additional Notes: has been up and out of bed Objective calves soft nontender, N/V intact, hip located, capillary refill less than 2 sec., dressing C/D/I, incision C/D/I, A&O x3, toes mobile, CMS intact wound has no active drainage. Scant drainage on dressings. Great toe has no erythema, swelling, or ecchymosis. Intact motor function. No pain with palpation of the rest of the foot. Date Time Temp Pulse Resp B/P (MAP) Pulse Ox O2 Delivery O2 Flow Rate FiO2 11/18/16 07:41 36.7 67 16 108/66 (80) 96 Room Air 11/18/16 03:55 36.7 71 16 113/64 (80) 94 Room Air 11/17/16 23:25 36.8 67 16 109/56 (73) 93 Room Air 11/17/16 19:25 Room Air 97 11/17/16 14:50 36.6 56 16 143/70 (94) 97 Room Air 11/17/16 13:50 58 16 118/66 (83) 97 Room Air 11/17/16 12:50 61 16 186/73 (110) 100 Nasal Cannula 2.0 11/17/16 12:25 53 16 160/71 (100) 100 Nasal Cannula 2.0 11/17/16 11:50 36.5 56 16 144/68 (93) 100 Nasal Cannula 2.0 11/17/16 11:50 Nasal Cannula 2.0 11/17/16 11:50 100 Nasal Cannula 2.0 11/17/16 11:30 50 16 150/67 99 Nasal Cannula 2 11/17/16 11:15 36.2 48 17 152/77 99 Nasal Cannula 2 11/17/16 11:05 51 18 136/69 99 Nasal Cannula 2 11/17/16 10:55 56 17 147/72 98 Nasal Cannula 2 11/17/16 10:45 67 17 166/78 99 Nasal Cannula 2 11/17/16 10:35 36.0 62 22 117/68 99 Nasal Cannula 2 Laboratory Results 24 Hours: Test 11/18/16 05:19 White Blood Count 5.41 K/uL Red Blood Count 3.25 M/uL Hemoglobin 10.8 g/dL Hematocrit 33.7 % Mean Corpuscular Volume 103.7 fL Mean Corpuscular Hemoglobin 33.2 pg Mean Corpuscular Hemoglobin Concent 32.0 g/dl Platelet Count 150 K/uL Mean Platelet Volume 9.7 fL Neutrophils (%) (Auto) 62.5 % Lymphocytes (%) (Auto) 24.2 % Monocytes (%) (Auto) 9.2 % Eosinophils (%) (Auto) 3.5 % Basophils (%) (Auto) 0.4 % Neutrophils # (Auto) 3.38 K/uL Lymphocytes # (Auto) 1.31 K/uL Monocytes # (Auto) 0.50 K/uL Eosinophils # (Auto) 0.19 K/uL Basophils # (Auto) 0.02 K/uL Prothromb Time International Ratio 1.0 Prothrombin Time 10.6 SECONDS Assessment & Plan Assessment: Left hip s/p revision of liner from unconstrained to constrained. Right great toe pain Plan: PT/OT today total hip precautions continue Ez wrap coumadin per nomogram anticipate D/C to home tomorrow morning with home health will continue to monitor great toe pain. It has improved since yesterday but is still present dressing changed by me. wound looks excellent. Discharge Planning Discharge Planning: home with home health Pain Management: Percocet DVT Prophylaxis: TEDs, SCDs, Coumadin Therapy: Physical Therapy
[2016-11-18] MEDS: FLUTICASONE/SALMETEROL 100/50 (ADVAIR) 14 PUFF/1 INHALER INH SCH ×2 (08:50→21:00)
[2016-11-18] MEDS: FERROUS GLUCONATE 324 MG TAB PO SCH ×3 (08:51→17:48)
[2016-11-18] MEDS: GABAPENTIN 300 MG CAP PO SCH ×3 (08:51→21:00)
[2016-11-18] MEDS: MULTIVITAMIN TAB PO SCH (08:52)
[2016-11-18] MEDS: FEXOFENADINE HCL 180 MG TAB PO SCH (08:52)
[2016-11-18] MEDS: DOCUSATE SODIUM 100 MG CAP PO SCH ×2 (08:52→21:00)
[2016-11-18] MEDS: PANTOprazole SOD 40 MG TAB PO SCH (08:53)
[2016-11-18] MEDS: CYANOCOBALAMIN 500 MCG TAB (VIT B-12) PO SCH (08:53)
--- NOTE | 2016-11-18 09:22 | Anesthesiology Progress Note ---
Anesthesia Progress Note Date of Service Nov 18, 2016. Progress Notes Pt is s/p L PERLA POD #1. I spoke to the patient in regards to her right great toe. She states having improvement in the pain on the dorsal surface of her great toe. She has been ambulating without any noted weakness or numbness or deficits. Her toe was notably less uncomfortable upon palpation. I spoke with her and her nurse. I recommended that she tell her nurse if her symptoms worsened. She is otherwise without complaints. She will continue physical therapy.
[2016-11-18] MEDS ORDERED: WARFARIN SOD 5 MG TAB PO SCH (11:00)
[2016-11-18 11:13] VITALS: BP 134/76; PULSE 62; TEMP 36.7; O2SAT 96
[2016-11-18] MEDS: FLUOXETINE HCL 20 MG CAP PO SCH (11:57)
[2016-11-18] MEDS: OXYCODONE HCL IR 5 MG TAB (IMMEDIATE RELEASE) PO PRN (12:46)
[2016-11-18 15:03] VITALS: BP 125/69; PULSE 57; TEMP 36.5; O2SAT 96
--- NOTE | 2016-11-18 16:14 | Anesthesiology Progress Note ---
Anesthesia Progress Note Date of Service Nov 18, 2016. Progress Notes I re-evaluated the patient regarding her R great toe. She states much improvement from this morning. She has been doing physical therapy and walking without any gait disturbance or any weakness or numbness. She states being able to walk without any noticeable pain in her R great toe. She states having a small amount of pain in the dorsal aspect of the R great toe near the nail bed with movement. The patient is otherwise doing well without any other complaints.
[2016-11-18 19:31] VITALS: BP 148/70; PULSE 56; TEMP 36.6; O2SAT 97
[2016-11-18] MEDS: TEMAZEPAM 15 MG CAP PO SCH (20:59)
[2016-11-18] MEDS: DEXAMETHASONE INJ 4 MG in SYRINGE 0 ML IV SCH (20:59)
[2016-11-18] MEDS: MONTELUKAST SOD 10 MG TAB PO SCH (21:00)
[2016-11-18 23:03] VITALS: BP 139/64; PULSE 63; TEMP 36.7; O2SAT 95
[2016-11-19] MEDS: LEVOTHYROXINE 100 MCG TAB PO SCH (05:57)
[2016-11-19 06:21] LABS: INR 1.1 (0.9-1.1); PROTHROMBIN TIME (PATIENT) 11.5 SECONDS (9.0-12.0)
[2016-11-19 06:33] VITALS: BP 151/69; PULSE 61; TEMP 36.4; O2SAT 98
[2016-11-19] MEDS: FLUOXETINE HCL 20 MG CAP PO SCH (07:19)
[2016-11-19] MEDS: MULTIVITAMIN TAB PO SCH (07:19)
[2016-11-19] MEDS: CYANOCOBALAMIN 500 MCG TAB (VIT B-12) PO SCH (07:19)
[2016-11-19] MEDS: PANTOprazole SOD 40 MG TAB PO SCH (07:19)
[2016-11-19] MEDS: FLUTICASONE/SALMETEROL 100/50 (ADVAIR) 14 PUFF/1 INHALER INH SCH (07:19)
[2016-11-19] MEDS: DOCUSATE SODIUM 100 MG CAP PO SCH (07:19)
[2016-11-19] MEDS: FEXOFENADINE HCL 180 MG TAB PO SCH (07:19)
[2016-11-19] MEDS: FERROUS GLUCONATE 324 MG TAB PO SCH (07:19)
[2016-11-19] MEDS: DEXAMETHASONE INJ 4 MG in SYRINGE 0 ML IV SCH (07:35)
--- NOTE | 2016-11-19 07:45 | DISCHARGE SUMMARY ---
CHIEF COMPLAINT: Left hip instability. HISTORY OF PRESENT ILLNESS: The patient is a 71-year-old female who has had multiple dislocations despite encouraging her to be posturally discrete. She continues to have issues. Her last episode occurred with her sleeping in a barcalounger in a position. At this point in time she wants to proceed with trying to prevent this. Options were discussed with her. She has at no time had any issues with infection. Her C-reactive protein is 1.2. Sed rate is 4. PAST MEDICAL HISTORY: Remarkable for asthma, osteoarthritis, spinal stenosis, SI joint dysfunction, hypothyroidism. CURRENT MEDICATIONS: Include Marely, iron supplementation, multivitamins, Prempro, Prozac, Restoril, Singulair, Synthroid, Valtrex, vitamin B12, Voltaren. She will discontinue the Voltaren, add p.r.n. pain medication prescribed at the time of discharge, the small dose narcotic see script and Coumadin to keep INR 1.8-2.2. Will discharge on 4 mg today. Of note, is that she also developed some slight neurologic pain in her right foot, the opposite side, likely based on spinal and is placed on gabapentin presently 300 mg t.i.d., will decrease to 200 mg t.i.d. for a week and then 100 mg a day for 5 days, then discontinue. She will need a prescription for that. ALLERGIES: None. PAST SURGICAL HISTORY: Include multiple epidural steroid injections, carpal tunnel release, hip replacement on the left, knee arthroscopies, ACL reconstruction on the right knee, left total knee replacement, lipoma excision. FAMILY HISTORY: Remarkable for breast cancer, liver cancer, [place]. SOCIAL HISTORY: Reveals she is , employed at [employer]. No tobacco or alcohol use. REVIEW OF SYSTEMS: Noncontributory. ASSESSMENT: Overall doing well with revision liner. At this point, wound is clean and dry. PLAN: Will discharge on 4 mg of Coumadin daily. See Neurontin recommendations noted above for the next 12 days. Will follow up in the office in 2 weeks for staple removal.
--- NOTE | 2016-11-19 07:45 | PROGRESS NOTE ---
DATE: 11/19/2016 SUBJECTIVE: Status post revision liner left total hip replacement. At this point in time the patient is doing well. She is afebrile. Vital signs are stable. Denies chest pain, shortness of breath, fever or chills. Wound dressing clean, dry and intact. Neurovascular check is normal. Issue with opposite right toe is getting better. ASSESSMENT: Doing well. PLAN: Will discharge to home today with home health. Discharge on 4 mg of Coumadin daily. Check INR on Tuesday. Also discharge on gabapentin 200 mg t.i.d. for a week followed by 100 mg t.i.d. for 5 days, then discontinue.
[2016-11-19 08:01] VITALS: O2SAT 9
[2016-11-19 08:03] VITALS: BP 151/69; PULSE 61; TEMP 36.4; O2SAT 9
[2016-11-19] MEDS: OXYCODONE HCL IR 5 MG TAB (IMMEDIATE RELEASE) PO PRN (08:19)
[2016-11-19] MEDS ORDERED: GABA1CAP PO (08:25)
--- NOTE | 2016-11-19 08:26 | Discharge Instructions ---
Discharge Instructions Date of Service Nov 17, 2016. Admission Reason for Admission: Left Hip Recurrent Instability Discharge Discharge Diagnosis / Problem: left hip s/p liner exchange Discharge Goals Goal(s): Decrease discomfort, Improve function, Increase independence Activity Recommendations Activity Limitations: as noted below Lifting Limitations: gradually increase as tolerated Exercise/Sports Limitations: until after follow-up appointment Shower/Bathe: keep incision dry Driving or Machine Use: No driving until cleared by Dr. Card Weightbearing Status: Left weightbearing (as tolerated) . Instructions / Follow-Up Instructions / Follow-Up New Medicine: * You will likely be taking one or more of these medicines: 1. Percocet - Take, as directed, when you need it, every four to six hours to control your pain. 2. Coumadin - Thins your blood to lessen the chance of forming a blood clot. The dose of this is different for each person and is based on your blood tests that are done twice a week. * The most common side effects of pain medicine and iron are nausea and constipation. If nausea or constipation is too much of a problem or if you have any questions about your new medicines or doses, call [facility] at . We will try to help you manage these issues. VERY IMPORTANT TO READ AND REVIEW" Blood Clots and Blood Thinning Medicine: * You are given Coumadin during the immediate post-operative period to lessen the risk of blood clots forming in your legs and/or lungs. Coumadin is usually given for six weeks after surgery. * The prescription is for 2 mg tablets. At discharge, you should understand your dose and take it all at the same time every day, preferably after dinner. * You need to get your blood checked 1 - 2 times per week for six weeks, or as directed. * If your dose needs to change, we will call you. Do not take your medication on the day of the blood test until we call you. * If you don't hear from us after your blood draws, keep taking the same dose. Pain: * The immediate post-operative period after hip replacement surgery is often quite painful. * You are given a prescription for pain medicine. You should take it, as directed, when you need it, especially before physical therapy and before going to bed. Pain that interferes with sleep is very common and can last several months. * You will likely need pain medicine for the first two to four weeks. It will not stop all of the pain. The pain will lessen and as you feel better, you may change to milder pain medicine such as Tylenol. * The most common side effects of pain medicine are nausea and constipation, so don't take more than you need. Physical Therapy: * Follow the "Hip Precautions Instructions." * In some cases, the medical social consultant at the hospital will arrange to have a therapist come to your house for the first couple of weeks to help you learn these skills. * You need to practice on your own or with the help of a family member as needed. * When you learn these skills, most of the therapy can be done on your own. Home Exercise: * You were shown a series of exercises in the hospital. Do these exercises three to four times each day including the exercises you were shown in physical therapy. Walking: * Get up and walk several times each day. For the first four weeks, try not to stand or walk for more than one hour at a time. If you do stand or walk for more than one hour, you will not hurt anything, but your leg will likely swell. * As you feel comfortable, you may change from the walker or crutches to a cane and then to independent walking. SELF CARE INSTRUCTIONS AFTER TOTAL HIP REPLACEMENT Until the incision and soft tissues around your hip have healed, there is a possibility that the hip prosthesis could dislocate. A. Observe the following precautions to prevent dislocation: 1. Don't bend your hip greater than 90 degrees. 2. Avoid crossing your legs or ankles while standing or lying. 3. Sit with your feet placed 6 inches apart. 4. When sitting, keep your knees below your hips. Sit on a firm surface, avoid deep, soft chairs and couches. Use an elevated toilet seat in the bathroom. 5. Don't bend over at the waist. Use a long handled shoehorn and a sock aid to help you put on your shoes and socks. A clutch assembler can help you pickler helper objects that are too high or too low to reach. 6. Keep car riding to a minimum for at least one month after surgery. B. Your balance may be shaky for a while. Use crutches or a walker until directed by your doctor. C. Use hand rails when walking on stairs. D. Wear low heeled shoes with non-slip soles. E. Be sure that your floors are free of things that could trip you - throw rugs , electrical cords, small objects. Avoid wet and waxed floors, especially with crutches and canes. F. Try to walk several times a day with rest periods between. G. Continue with all the exercises taught to you in the hospital. Again, make walking a part of your daily routine. VERY IMPORTANT TO READ AND REVIEW A. Take Coumadin, or Lovenox (blood thinning medications) as directed by your doctor. If you are on Coumadin, have a pro-time (blood test) drawn according to your doctor's instructions. This will tell the doctor how well the Coumadin is thinning your blood. B. There are a few signs you need to watch for after you are home. If you notice any of the followin. Increased severe hip pain. Some pain is expected especially when you exercise. 2. Increased swelling in your leg or knee; pain or swelling of the calf muscle in either lower leg. 3. Any fluid drainage from the incision. 4. Shortness of breath or chest pain. TEDs/Elastic Stockings: * The white elastic stockings help limit swelling and prevent blood clots from forming in your legs. The more you wear them, the more they work. * Wear them for six weeks. Prevention of Infection: * Take antibiotics one hour before any dental cleaning, dental work, urological procedure, gastrointestinal procedure or any invasive surgery in order to prevent your new joint from getting infected. * You may get the antibiotics from the doctor performing the procedure or we will call in a prescription to the pharmacy of your choice. Call the office for a prescription at least 2 days prior to your appointment. Things to Watch For: * Drainage from the incision site that occurs more than one week after your surgery. * Severely increased leg pain or swelling. * Increased redness at the incision site. * Fever above 101 degrees Fahrenheit. * Unusual chest pain or shortness of breath. * Unusual pain or burning with urination. Current Hospital Diet Patient's current hospital diet: AHA Diet (Heart Healthy) Discharge Diet Recommended Diet: Regular Diet Procedures Procedures Performed: Left Hip Poly Exchange with Locked Liner Pending Studies Studies pending at discharge: no Medical Emergencies . Who to Call and When: Medical Emergencies: If at any time you feel your situation is an emergency, please call 911 immediately. . Non-Emergent Contact Non-Emergency issues call your: Primary Care Provider, Surgeon Call Non-Emergent contact if: temperature is above 101, wound has increased drainage, wound has increased redness, wound has increased pain, you have any medication questions . "Provider Documentation" section prepared by Elfego Felipe PA-C. . VTE Core Measure Inpt VTE Proph given/why not?: Warfarin (Coumadin), Gustavo Ace, SCD's [place] Drug Monitoring Program Search Results: no issues identified
--- NOTE | 2016-11-19 08:30 | Orthopedic Progress Note ---
Orthopedic Progress Note Date of Service Nov 19, 2016. Subjective Post OP Day: 2 Reports: feeling well, pain controlled w PO medications, Denies: complaints, chest pain, SOB, nausea / vomiting, light headedness, calf pain Objective calves soft nontender, N/V intact, hip located, capillary refill less than 2 sec., dressing C/D/I, incision C/D/I, A&O x3, toes mobile, CMS intact No drainage on dressings. Date Time Temp Pulse Resp B/P (MAP) Pulse Ox O2 Delivery O2 Flow Rate FiO2 11/19/16 08:03 36.4 61 16 9 Room Air 11/19/16 08:01 9 Room Air 11/19/16 06:33 36.4 61 16 151/69 (96) 98 Room Air 11/19/16 00:00 Room Air 11/18/16 23:03 36.7 63 18 139/64 (89) 95 Room Air 11/18/16 19:31 36.6 56 20 148/70 (96) 97 Room Air 11/18/16 15:35 Room Air 11/18/16 15:03 36.5 57 16 125/69 (87) 96 Room Air 11/18/16 11:13 36.7 62 16 134/76 (95) 96 Room Air Laboratory Results 24 Hours: Test 11/19/16 05:38 Prothromb Time International Ratio 1.1 Prothrombin Time 11.5 SECONDS Assessment & Plan Assessment: Left hip s/p revision of liner from unconstrained to constrained, post op day 2. Right great toe pain Plan: PT/OT today total hip precautions continue Ez wrap coumadin per nomogram D/C to home this morning with home health will continue to monitor great toe pain. will be D/C on gabapentin. dressing changed by me. wound looks excellent. Discharge Planning Discharge Planning: home with home health Pain Management: Percocet, other (gabapentin) DVT Prophylaxis: TEDs, SCDs, Coumadin Therapy: Physical Therapy
[2016-11-19] MEDS ORDERED: WARFARIN SOD 6 MG TAB PO SCH (09:00)
[2017-02-22] MEDS ORDERED: DICL-201 PO (15:39)
[2017-02-22] MEDS ORDERED: OMEG10002 PO (15:39)
== END 2016-11-19 10:32 | disposition home health service (06) | DRG 468 ==
LOC: C.ACU 06:21 → C.3E 06:39 → ENRESERV 11:17
PROVIDERS: ADMIT Physical Medicine & Rehabilitation Sports Medicine; ATTEND Physical Medicine & Rehabilitation Sports Medicine
PROC: 0SPB09Z Removal of Liner from Left Hip Joint, Open Approach (ICD-10-PCS; principal; 2016-11-17 08:50)
PROC: 0SUB09Z Supplement Left Hip Joint with Liner, Open Approach (ICD-10-PCS; principal; 2016-11-17 08:50)
DX: T84.021A Dislocation of internal left hip prosthesis, initial encounter (principal); M79.674 Pain in right toe(s); R20.8 Other disturbances of skin sensation; E03.9 Hypothyroidism, unspecified; J45.909 Unspecified asthma, uncomplicated; Z79.899 Other long term (current) drug therapy; Y83.1 Surgical operation with implant of artificial internal device as the cause of abnormal reaction of the patient, or of later complication, without mention of misadventure at the time of the procedure; Y79.2 Prosthetic and other implants, materials and accessory orthopedic devices associated with adverse incidents; Z96.642 Presence of left artificial hip joint

== ENCOUNTER → 2016-11-22 | Outpatient (CLI) | payer BC ==
[~2016-11-22] MED LIST changes: +AZIT250T PO; -CEFAZOLIN 2000 MG/60 ML D5W 60 ML IV SCH; +GABA1CAP PO; -LACTATED RINGER'S 1000ML 1,000 ML IV SCH; -LACTATED RINGER'S 1000ML IV SCH; -LACTATED RINGER'S 500 ML IV SCH; +OMEG10002 PO; -OMEG10007 PO; +OXYC-57 PO; -ROPIVACAINE 5MG/ML 30 ML 150 MG, BUPIVACAINE/EPINEPHR 0.5% MPF 30 ML, KETOROLAC TROMETH... INFIL SCH; -TRANEXAMIC ACID INJ 1,000 MG in SODIUM CHLORIDE 0.9% 100ML 100 ML IV SCH; +WARF2TAB PO
[2016-11-22 15:00] LABS: INR 1.1 (0.9-1.1); PROTHROMBIN TIME (PATIENT) 11.4 SECONDS (9.0-12.0)
--- NOTE | 2016-11-29 08:47 | CODING QUERY MEDICAL NECESSITY ---
Valid Physician Order Needed A valid physician order must be submitted in order to properly bill for the service(s) provided, including date of service(s), valid diagnosis, and physician signature. If these tests are done on a recurring basis the original physican order must be submitted in order to code and bill for the service(s) provided. Please fax us the original, signed physician order so that we may expedite billing to [phone] DOS 11/22/16 * PT/INR Thank you Shefali [facility] Information Management
== END | disposition home or self-care (01) ==
LOC: C.LABSPEC 13:52
PROVIDERS: ATTEND Physical Medicine & Rehabilitation Sports Medicine
DX: T84.021A Dislocation of internal left hip prosthesis, initial encounter (principal); M19.91 Primary osteoarthritis, unspecified site; J45.909 Unspecified asthma, uncomplicated; X58.XXXA Exposure to other specified factors, initial encounter

== ENCOUNTER → 2016-11-29 | Outpatient (CLI) | payer BC ==
[~2016-11-29] MED LIST changes: -AZIT250T PO
[2016-11-29 13:56] LABS: INR 2.4 (0.9-1.1); PROTHROMBIN TIME (PATIENT) 26.1 SECONDS (9.0-12.0)
== END | disposition home or self-care (01) ==
LOC: C.LABSPEC 11:31
PROVIDERS: ATTEND Orthopaedic Surgery Sports Medicine
DX: Z51.81 Encounter for therapeutic drug level monitoring (principal); Z79.01 Long term (current) use of anticoagulants

== ENCOUNTER → 2017-01-07 | Outpatient (CLI) | payer BC ==
[2017-01-07 12:38] LABS: THYROID STIMULATING HORMONE 1.21 uIu/ml (0.300-4.500)
== END | disposition home or self-care (01) ==
LOC: C.LAB1850 10:19
PROVIDERS: ATTEND Internal Medicine Endocrinology, Diabetes & Metabolism
DX: E89.0 Postprocedural hypothyroidism (principal)

== ENCOUNTER → 2017-01-10 | Outpatient (CLI) | payer BC | END | disposition home or self-care (01) | LOC: C.RDSM 13:47 | PROVIDERS: ATTEND Physical Medicine & Rehabilitation Sports Medicine | DX: S73.015A Posterior dislocation of left hip, initial encounter (principal); X58.XXXA Exposure to other specified factors, initial encounter ==

== ENCOUNTER → 2017-02-21 | Outpatient (CLI) | payer BC | END | disposition home or self-care (01) | LOC: C.MAMM 08:58 | PROVIDERS: ATTEND Internal Medicine Endocrinology, Diabetes & Metabolism | DX: M85.80 Other specified disorders of bone density and structure, unspecified site (principal) ==

== ENCOUNTER → 2017-02-23 | Day surgery (SDC) | payer BC ==
[2017-02-22 15:32] VITALS: Ht 152.4 cm; Wt 54.5 kg
[~2017-02-23] VITALS: Ht 152.4 cm; Wt 54.5 kg
[~2017-02-23] MED LIST changes: -ASCO1CAP3 PO; -FEXO1TAB49 PO; -GABA1CAP PO; +IOPAMIDOL INJ 61% 15 ML VIAL ONE; +LIDOCAINE HCL 1% MPF 5 ML VIAL ONE; -MAGN250T3 PO; -OXYC-57 PO; -POTA1TAB PO; +SODIUM CHLORIDE 0.9% INJ 10 ML VIAL ONE; -WARF2TAB PO
[2017-02-23 14:57] VITALS: TEMP 36.7
--- NOTE | 2017-02-23 15:02 | Discharge Instructions ---
Discharge Instructions Date of Service Feb 23, 2017. Visit Reason for Visit: Lumbar Spinal Stenosis Discharge Discharge Diagnosis / Problem: low back pain Discharge Goals Goal(s): Decrease discomfort, Improve function Medications Stopped Medications Name(s): Roxy last dose Tuesday Activity Recommendations Activity Limitations: resume your previous activity Anesthesia . Post Anesthesia Instructions: If you have had General Anesthesia or IV Sedation: * Do not drive today. * Resume driving when surgeon permits. * Do not make important decisions or sign legal documents today. * Call surgeon for: 1. Temperature elevations greater than 101 degrees F. 2. Uncontrollable pain. 3. Excessive bleeding. 4. Persistent nausea and vomiting. 5. Medication intolerance (nausea, vomiting or rash). * For nausea and vomiting use only clear liquids such as: tea, soda, bouillon until nausea subsides, then gradually increase diet as tolerated. * If you have any concerns or questions, call your surgeon's office. If physician is unavailable and it is an emergency, call 911 or go to the nearest emergency room. . Diet Recommendations Recommended Home Diet: resume previous diet Procedures Procedures Performed: LUMBAR EPIDURAL STEROID INJECTION Pending Studies Studies pending at discharge: no Medical Emergencies . Who to Call and When: Medical Emergencies: If at any time you feel your situation is an emergency, please call 911 immediately. . Non-Emergent Contact Non-Emergency issues call your: Specialist . . "Provider Documentation" section prepared by Sheldon Grace. .
[2017-02-23 15:08] VITALS: O2SAT 97
[2017-02-23 15:15] VITALS: BP 185/83; PULSE 60
--- NOTE | 2017-02-23 21:38 | OPERATIVE REPORT ---
DATE OF OPERATION: 02/23/2017 PREOPERATIVE DIAGNOSIS: Lumbar spinal stenosis with neurogenic claudication. POSTOPERATIVE DIAGNOSIS: Same. PROCEDURE: Right paramedian L5-S1 intralaminar epidural steroid injection under fluoroscopic guidance. INDICATIONS: The patient is a 71-year-old white female who had an epidural injection done more than 14 months ago; however, her pain started to return and be problematic to her. She presents today for another injection to provide her with relief of the radicular sensations down the leg. PHYSICAL EXAMINATION: Pleasant female seated comfortably. She has some mild limitations with forward flexion and some right sciatic notch sensitivity. She has no focal weakness with negative seated straight leg raises. CONSENT: Verbal and written consent was obtained from the patient. Risks and benefits were reviewed. Risks include but are not limited to epidural abscess, epidural hematoma, allergic reaction, dural puncture. The patient wishes to proceed. PROCEDURE: The patient was taken back to the special procedures room of [facility]. She was maintained in a prone position. Backside was cleansed with Betadine x3 and a dry sterile dressing was applied. Fluoroscope was used to identify the L5-S1 intralaminar space and overlying skin on the right side was anesthetized with 4 mL of lidocaine 1% with a 25 gauge 1.5-inch needle. A 22-gauge 3-1/2 inch Tuohy needle was then placed under fluoroscopic guidance, it was then advanced to a depth of 7 cm when loss of resistance was noted. She then underwent injection after negative aspiration, injection of 1 mL of Isovue 300 contrast which demonstrated epidural uptake pattern. This was then followed by injection after negative aspiration of 40 mg of Depo-Medrol and 4 mL of preservative free sodium chloride. Injection was well tolerated. DISPOSITION: 1. The patient is taken out into the discharge recovery area where she will be discharged home once discharge criteria have been met. 2. Follow up in the [facility] office in 2-4 weeks. I attest to the content of the Intraoperative Record and any orders documented therein. Any exception s are noted below.
== END | disposition home or self-care (01) ==
LOC: X.SURG 13:54
PROVIDERS: ATTEND Physical Medicine & Rehabilitation
DX: M48.06 Spinal stenosis, lumbar region (principal); I73.9 Peripheral vascular disease, unspecified

== ENCOUNTER → 2017-02-28 | Outpatient (CLI) | payer BC ==
[~2017-02-28] MED LIST changes: -IOPAMIDOL INJ 61% 15 ML VIAL ONE; -LIDOCAINE HCL 1% MPF 5 ML VIAL ONE; -SODIUM CHLORIDE 0.9% INJ 10 ML VIAL ONE
[2017-02-28 10:24] LABS: THYROID STIMULATING HORMONE 0.904 uIu/ml (0.300-4.500)
== END | disposition home or self-care (01) ==
LOC: C.LAB1850 08:54
PROVIDERS: ATTEND Physician Assistant
DX: E89.0 Postprocedural hypothyroidism (principal)

== ENCOUNTER → 2017-04-04 | Outpatient (CLI) | payer BC | END | disposition home or self-care (01) | LOC: C.PAPS 10:01 | PROVIDERS: ATTEND Obstetrics & Gynecology | DX: Z12.4 Encounter for screening for malignant neoplasm of cervix (principal); R87.615 Unsatisfactory cytologic smear of cervix ==

== ENCOUNTER → 2017-04-27 | Outpatient (CLI) | payer BC ==
--- NOTE | 2017-04-27 18:39 | DIAGNOSTIC IMAGING REPORT ---
MRI OF THE LUMBAR SPINE WITHOUT IV CONTRAST CLINICAL HISTORY: Chronic low back pain. Right lower extremity radiculopathy. COMPARISON STUDY: MRI of the lumbar spine dated 10/07/2015. TECHNIQUE: MRI of the lumbar spine is performed utilizing various T1 and T2-weighted sequences in the axial and sagittal planes. IV contrast was not administered for this examination. The examination is compromised by motion artifact and spinal scoliosis. FINDINGS: Lumbar spine: Marrow signal intensity is markedly heterogeneous. Vertebral body height is maintained throughout the lumbar spine. There is moderate S-shaped thoracolumbar scoliosis. There is minimal retrolisthesis at T12-L1, L1-L2, and L2-L3. Mild anterolisthesis is seen at L4-L5. No destructive bony lesion is seen. Chronic degenerative endplate change is seen at all levels. The transverse and spinous processes are intact as visualized. There is no evidence of spondylolysis. Intervertebral discs: Degenerative disc desiccation and advanced loss of height is seen at all lumbar levels. Spinal cord: The partially imaged spinal cord is normal in morphology and signal intensity. The conus medullaris terminates at the T12-L1 interspace. The nerve roots of the cauda equina are normal in morphology. These are mildly tethered at L3-L4 and L4-L5. T12-L1: A posterior disc osteophyte complex is identified with annular fissure. There is no significant acquired compromise of the central canal at this level. This is only seen on the sagittal views. L1-L2: There is a small posterior disc osteophyte complex with annular fissure. In conjunction with hypertrophy of the ligamentum flavum this causes mild to moderate acquired compromise of the central canal with a minimum AP diameter of 7.5 mm. There is right-sided subarticular stenosis and moderate to severe right-sided neural foraminal stenosis. The left neural foramen is patent. L2-L3: There is a large posterior disc osteophyte complex with annular fissure. This causes only mild acquired compromise of the central canal with a minimum AP diameter of 9 mm. There is bilateral subarticular stenosis. Facet arthropathy causes mild right neural foraminal narrowing. L3-L4: There is a large posterior disc bulge. In conjunction with bulky facet arthropathy this causes moderate to severe central canal stenosis. There is a minimum AP canal diameter of 5 mm. There is bilateral subarticular stenosis. Facet arthropathy causes [id number] left neural foraminal narrowing. The disc bulge impinges on the transiting bilateral nerve roots. L4-L5: There is a posterior disc bulge. In conjunction with hypertrophy of the ligamentum flavum and bulky facet arthropathy there is mild to moderate central canal stenosis at this level with a minimum AP diameter of 7.5 mm. Facet arthropathy causes mild neuroforaminal stenosis. Facet overgrowth on the left impinges on the left-sided transiting nerve roots. L5-S1: There is a small posterior disc bulge. There is no significant acquired compromise of the central canal at this level. Facet arthropathy causes moderate bilateral neural foraminal stenosis. Sacrum: The visualized sacrum is normal in morphology and signal intensity. 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 Soft tissues: There is near complete fatty atrophy of the paraspinous and iliopsoas muscular tear. IMPRESSION: 1. Advanced lumbosacral spondylosis and scoliosis as above with multilevel acquired compromise of the central canal. See discussion for detailed level by level analysis. 2. Findings are overall similar to the 10/07/2015 examination. 3. No destructive bony process is identified. Dictated: 04/27/2017 5:03 PM Transcribed: 04/27/2017 6:39 PM [place] Electronically signed by: Khang Dinero M.D. 04/27/2017 6:57 PM Dictated Date/Time: 04/27/2017 5:03 PM
== END | disposition home or self-care (01) ==
LOC: C.MRIBC 16:21
PROVIDERS: ATTEND Physical Medicine & Rehabilitation
DX: M48.061 Spinal stenosis, lumbar region without neurogenic claudication (principal); M79.604 Pain in right leg; M47.817 Spondylosis without myelopathy or radiculopathy, lumbosacral region

== ENCOUNTER → 2017-08-26 | Outpatient (CLI) | payer BC | END | disposition home or self-care (01) | LOC: C.PAPS 13:59 | PROVIDERS: ATTEND Obstetrics & Gynecology | DX: R87.615 Unsatisfactory cytologic smear of cervix (principal) ==

== ENCOUNTER → 2017-09-30 | Outpatient (CLI) | payer BC ==
--- NOTE | 2017-10-03 07:48 | MAMMOGRAPHY REPORT ---
BILATERAL DIGITAL SCREENING MAMMOGRAM TOMOSYNTHESIS WITH CAD: 09/30/2017 CLINICAL HISTORY: Routine screening. Patient has no complaints. TECHNIQUE: Breast tomosynthesis in addition to standard 2D mammography was performed. Current study was also evaluated with a Computer Aided Detection (CAD) system. COMPARISON: Comparison is made to exams dated: 09/10/2016 mammogram, 09/05/2015 mammogram, 08/30/2014 saul mogram, 08/24/2013 mammogram, 08/04/2012 mammogram, and 07/23/2011 mammogram - [facility] er. BREAST COMPOSITION: The tissue of both breasts is heterogeneously dense, which may obscure small mas ses. FINDINGS: There is a nodular 7 mm asymmetry seen within the left medial breast on the cc view only, f or which spot compression tomosynthesis views and possible breast ultrasound are recommended for furt her evaluation. The remainder of both breasts demonstrate no suspicious masses, calcifications, or a reas of architectural distortion. Bilateral benign-appearing calcifications are not significantly ch anged. IMPRESSION: ACR BI-RADS CATEGORY 0: INCOMPLETE EVALUATION: NEED ADDITIONAL IMAGING EVALUATION Left breast asymmetry, for which additional imaging evaluation is recommended. The patient will be c alled to schedule an appointment. Approximately 10% of breast cancers are not detected with mammography. A negative mammographic report should not delay biopsy if a clinically suggestive mass is present. Susan Prince M.D. ah/:09/30/2017 17:02:00 Senior Electrical Engineer: Karina Rodriguez RT(R)(M), [facility] letter sent: Addl Imaging 0 BI-RADS Code: ACR BI-RADS Category 0: Incomplete Evaluation: Need Additional Imaging Evaluation
== END | disposition home or self-care (01) ==
LOC: C.MAMM 10:29
PROVIDERS: ATTEND Obstetrics & Gynecology
DX: Z12.31 Encounter for screening mammogram for malignant neoplasm of breast (principal); N64.89 Other specified disorders of breast

== ENCOUNTER → 2017-10-03 | Outpatient (CLI) | payer BC | END | disposition home or self-care (01) | LOC: C.RDSM 14:27 | PROVIDERS: ATTEND Physical Medicine & Rehabilitation Sports Medicine | DX: Z96.652 Presence of left artificial knee joint (principal); Z96.642 Presence of left artificial hip joint; M25.562 Pain in left knee; M25.552 Pain in left hip ==

== ENCOUNTER → 2017-10-10 | Outpatient (CLI) | payer BC ==
--- NOTE | 2017-10-10 14:35 | MAMMOGRAPHY REPORT ---
UNILATERAL LEFT DIGITAL DIAGNOSTIC MAMMOGRAM TOMOSYNTHESIS AND TARGETED LEFT ULTRASOUND: 10/10/2017 CLINICAL HISTORY: 72-year-old woman called back from screening mammography for a nodular asymmetry in the medial left breast on the CC view. TECHNIQUE: Spot compression left CC and MLO 2D and tomosynthesis images were obtained. COMPARISON: Comparison is made to exams dated: 09/30/2017 mammogram, 09/10/2016 mammogram, 09/05/2015 saul mogram, 08/30/2014 mammogram, 08/24/2013 mammogram, and 08/04/2012 mammogram - [facility] er. BREAST COMPOSITION: The tissue of the left breast is heterogeneously dense, which may obscure small masses. FINDINGS: The spot compression left CC view demonstrates a persistent 6 x 5 mm nodular asymmetry in t he medial, middle one third of the breast. No associated architectural distortion or calcification. When comparing back to prior available mammograms, this appears somewhat similar on all available pr ior mammograms dating back to at least 2007, suggesting benignity. Targeted ultrasound was performed in the medial left breast with particular attention to the lower in ner quadrant, based on the tomosynthesis localizer bar. Sonographically normal tissue is seen withou t a discrete solid or cystic mass. IMPRESSION: ACR-BI-RADS CATEGORY 3: PROBABLY BENIGN, TARGETED ULTRASOUND ACR-BI-RADS CATEGORY 3: PRO BABLY BENIGN There is a persistent 6 x 5 mm nodular asymmetry in the medial left breast, which appears similar to many prior mammograms dating back to 2007, and there was no suspicious sonographic correlate suggesti ng benignity. However, given slight increased conspicuity on the most recent screening mammogram, a short interval follow-up left diagnostic tomosynthesis mammogram and possible ultrasound is recommend ed to ensure stability in 6 months. These results and recommendations were discussed with the patient at the time of the exam. She tenta tively scheduled a follow-up appointment prior to leaving our department. Approximately 10% of breast cancers are not detected with mammography. A negative mammographic report should not delay biopsy if a clinically suggestive mass is present. Libia Acevedo M.D. ay/:10/10/2017 13:43:47 Ferryboat Operator Helper: Suzan Farooq, [facility] letter sent: Follow Up Recommended 3 BI-RADS Code: ACR-BI-RADS Category 3: Probably Benign Ultrasound BI-RADS: ACR-BI-RADS Category 3: Pr obably Benign
== END | disposition home or self-care (01) ==
LOC: C.MAMM 13:09
PROVIDERS: ATTEND Obstetrics & Gynecology
DX: N64.9 Disorder of breast, unspecified (principal)

== ENCOUNTER 2020-03-12 11:35 | Inpatient (IN) ==
[2020-03-12] MEDS ORDERED: ONDANSETRON INJ 2 MG/ML 2 ML VIAL IV STA (11:50)
[2020-03-12] MEDS ORDERED: SODIUM CHLORIDE 0.9% 500 ML IV SCH (12:00)
[2020-03-12] MEDS: fentaNYL citrate 100 MCG/2 ML VIAL IV PRN ×2 (12:05→14:07)
--- NOTE | 2020-03-12 12:46 | XRay Report ---
XR hip LT 2V w pelvis HISTORY: 74 years-old Female fall acute left hip pain status post fall COMPARISON: Pelvis and left hip radiographs 11/30/2019 TECHNIQUE: AP view the pelvis with 2 views of the left hip FINDINGS: Moderate right hip osteoarthritis. Left hip total joint arthroplasty. No acute fracture. There is sup erior and anterior dislocation of the femoral head prosthesis. There is a fractured ring component of the prosthesis which was previously noted flow of the mid femoral prosthesis with fractured fragment of the hardware measuring up to 4.5 cm which is displaced posteriorly approximately 2.5 cm. IMPRESSION: Left hip total joint arthroplasty with superior and anterior dislocation of the femoral h ead prosthesis. Fractured metallic ring component of the prosthesis is displaced posteriorly. ACT 112: Negative or not required by law. The above report was generated using voice recognition software. It may contain grammatical, syntax o r spelling errors. Electronically signed by: Aníbal Murrieta M.D. 03/12/2020 12:44 PM
--- NOTE | 2020-03-12 12:49 | Emergency Department Note ---
Impression & Plan Dislocation of hip, left, closed, Acute hyponatremia ED Provider Note NAME: ZAIRA ANDRES AGE: 74 SEX: F : 1945 ARRIVES VIA: Ambulance INFORMANT: Patient, ED PROVIDER(S): Felton Doe DO CHIEF COMPLAINT: Left hip pain HPI: The patient is a 74-year-old female who presented to the emergency department for an evaluation of left hip pain. The patient is a history of hip replacement many years ago. She had a revision of the hip secondary to multiple dislocations in the past. She is not had a dislocation ever since her revision of the hip. She denies having any nausea or vomiting. She did not fall rather she was hanging close and felt the hip got a place and went to the ground. She denies any other injury. She denies having any neck pain or chest pain. The patient states the pain is moderate to severe. She has worsening pain with any movement of the hip. She presented via ambulance and received IV pain m edication prior to arrival which somewhat improved her symptoms. ROS: See above HPI for pertinent positives & negatives. A total of 10 systems reviewed and were otherwise negative. PAST MEDICAL HISTORY: See Below PAST SURGICAL HISTORY: See Below FAMILY HISTORY: See Below SOCIAL HISTORY: See Below HOME MEDICATIONS: See Below ALLERGIES: See Below VITALS: See Below PHYSICAL EXAMINATION: GENERAL: Patient is awake and alert. She is very anxious appearing and appears to be uncomfortable. EYES: The conjunctivae are clear. The pupils are round and reactive. EARS, NOSE, MOUTH AND THROAT: The nose is without any evidence of any deformity. Mucous membranes are moist. Tongue is midline. NECK: The neck is nontender and supple. RESPIRATORY: Normal respiratory effort is noted there is no evidence of wheezing rhonchi or rales CARDIOVASCULAR: Regular rate and rhythm noted there no murmurs rubs or gallops normal S1 normal S2. GASTROINTESTINAL: The abdomen is soft. Abdomen is nontender. MUSCULOSKELETAL/EXTREMITIES: There is only minimal shortening of the left lower extremity. It is externally rotated. Pulses are symmetric in both feet. Patient resists any range of motion testing with the left lower extremity. SKIN: There is no obvious evidence of any rash. There are no petechiae, pallor or cyanosis noted. NEUROLOGIC: Patient is awake alert and oriented x 3. MEDICAL DECISION MAKING: The patient is a 74-year-old female who presented to the emergency department for an evaluation of left hip pain. The patient has a history of previous hip replacement. She is had hip dislocation in the past but she had a revision of her hip 3 years ago and has not had a problem since. She was hanging up close in her home when she felt the left hip come out of place. She was treated with IV pain medication in the emergency department. She was reevaluated multiple times. I discussed the patient's laboratory and radiographic studies with her. She was found to have signs of hyponatremia but also a left hip dislocation. Given the previous surgical intervention reduction in the emergency department was not felt to be possible. I discussed her case with her primary orthopedic group. I also discussed her case with the [facility] hospitalist group for medical clearance. The patient was reevaluated multiple times. She was feeling somewhat improved. Triage Nursing notes reviewed. Prior medical records reviewed Vital Signs: reviewed and remarkable for elevated blood pressure. Differential diagnosis: Fracture, subluxation, dislocation, contusion, ligamentous injury, neurovascular, compartment syndrome, rhabdomyolysis, as well as other pathologies. ER treatment provided: See below Diagnostics interpreted by me: ECG: EKG was obtained in the emergency department. My interpretation is normal sinus rhythm at 68 bpm. There was no ectopy. There was no acute ST segment abnormalities noted. Peak T waves were noted with anterior T wave inversions. This was compared to a tracing from December 042019. No significant changes were noted. Cardiac Monitoring: An order was placed for continuous cardiac monitoring. The monitor shows a rate of 82 bpm with sinus rhythm. Laboratory studies: As stated above and show below. Imaging studies: See below Consultation(s): 1245: I discussed this case with Bryce. He was on for the orthopedic group. After evaluation of the films he will discuss further possibilities as far as close reduction in the ER versus the OR. 1415: I discussed this case with Dr Cedeño. He will evaluate the patient for medical clearance in the emergency department. Past Med/Surg History Medical History Allergic rhinitis due to cats Allergic rhinitis due to dust Allergic rhinitis due to pollen Arthritis BACK AND HIP Chronic back pain Depression with anxiety Exercise-induced asthma H/O Graves' disease (1996) s/p I 131 History of high blood pressure HX MED, RECENTLY D/C'D - AND MONITORS WITH PCP Hypothyroidism, postablative (1996) Left lumbar radiculopathy Low back pain Primary osteoarthritis of hand Scoliosis Spinal stenosis Thyroid disease Surgical History History of bilateral tubal ligation (1974) History of colonoscopy (12/16/17) History of surgery LEFT HIP X2 REVISIONS History of tonsillectomy History of total hip arthroplasty LEFT History of total knee replacement LEFT Right ACL tear (1992) RECONSTRUCTIVE SURGERY Family History Mother Breast cancer Father Myocardial infarction Aunt Ovarian cancer Breast cancer Other Family history of diabetes mellitus in father Denies family history of Colorectal cancer Social History Smoking Status: Never smoker Second Hand Exposure: Yes; Hx Alcohol Use: Yes Alcohol type: hard liquor Hx Substance Use: No Preferred Language: Russian Communication Ability: Effective Visual Impairment: No Limitations Hearing Ability: Normal 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 Beliefs That Will Affect Care: None marital status: Current Living Situation: Spouse current occupational status: retired current occupation: [employer], worked at [employer], 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 Other Information That Helps Us Care for You: No Feels Safe at Home: Yes Safety Concerns: Feels Safe At This Time Childhood Exposure to Second-Hand Smoke: Yes Dental Care, Regularly: Yes Physical Activity Frequency: 3-4 Times per Week Seatbelt Use: always Sunscreen Use: Yes Assistive Devices: None Allergies Allergies Allergy/AdvReac Type Severity Reaction Status Date / Time animal dander Allergy Unknown NASAL Verified 03/12/20 13:34 CONGESTION, WATERY EYES No Known Drug Allergies AdvReac Unknown Verified 03/12/20 13:34 amlodipine AdvReac LE Verified 03/12/20 13:34 swelling lisinopril AdvReac Sick in Verified 03/12/20 13:34 stomach ENVIRONMENTAL ALLERGIES Allergy Unknown NASAL Uncoded 03/12/20 13:34 CONGESTION, WATERY EYES Home Meds Home Medications Medication Instructions Recorded Confirmed ascorbic acid (vitamin C) [Vitamin 500 mg PO DAILY 12/15/18 03/12/20 C] cholecalciferol (vitamin D3) 2,000 unit PO DAILY 12/15/18 03/12/20 [Vitamin D3] fexofenadine [Marely Allergy] 180 mg PO DAILY 12/15/18 03/12/20 magnesium 250 mg PO DAILY 12/15/18 03/12/20 omega-3 fatty acids-fish oil [Fish 1 cap PO DAILY 12/15/18 03/12/20 Oil] vitamin T30-ezhzj acid 1 tab PO DAILY 12/15/18 03/12/20 glucosamine-chondroitin 250 mg-200 1 tab PO BID tab 01/29/19 03/12/20 mg tablet multivit-iron 18 mg-folic acid 400 1 tab PO DAILY tab 01/29/19 03/12/20 mcg-calcium 500 mg-minerals tablet Prempro 1 tab PO WK 12/05/19 03/12/20 Previous Rx's Medication Instructions Recorded Synthroid 112 mcg tablet 112 mcg PO DAILY #90 tab NS 04/09/19 valacyclovir 500 mg tablet 500 mg PO DAILY #90 tab 09/27/19 temazepam 15 mg capsule 15 mg PO QPM #90 cap 10/23/19 diclofenac sodium 75 mg 75 mg PO BID #180 tab 11/21/19 tablet,delayed release fluoxetine 20 mg capsule 20 mg PO DAILY #90 cap 11/21/19 montelukast 10 mg tablet 10 mg PO PM #90 tab 12/20/19 amlodipine 10 mg tablet 10 mg PO DAILY #90 tab 01/22/20 hydrochlorothiazide 25 mg tablet 25 mg PO DAILY #90 tab 02/28/20 valsartan 80 mg tablet 80 mg PO DAILY #90 tab 02/28/20 Results & Data (ED) Vital Signs Vital Signs - 24 hr 03/12/20 11:43 Temperature 36.8 C Temperature Source Oral Pulse Rate 71 Respiratory Rate 20 Respiratory Effort / Characteristics Non-Labored Spontaneous Respiratory Depth Normal Respiratory Pattern Regular Blood Pressure 181/84 H Blood Pressure Mean 116 Pulse Oximetry 98 Oxygen Delivery Method Room Air Sepsis Recent Fever Within 48 Hours No Sepsis New/Unexplained Change in Mental Status N/A Sepsis Action Taken by Nursing No Action Required Home Medications Current Medication List: was personally reviewed by me Laboratory Data Attestation: I reviewed the patient's lab results. Result diagrams: 03/12/20 12:47 03/12/20 12:47 Lab Results 03/12/20 03/12/20 03/12/20 Range/Units 12:47 12:47 12:47 WBC 7.70 (4.8-10.8) K/uL RBC 3.31 L (4.2-5.4) M/uL Hgb 11.7 L (12.0-16.0) g/dL Hct 33.4 L (37-47) % MCV 100.9 H (80-100) fL MCH 35.3 H (25-34) pg MCHC 35.0 (32-36) g/dL RDW Std Deviation 45.4 (36.4-46.3) fL RDW Coeff of Dmitri 12.3 (11.5-14.5) % Plt Count 177 (130-400) K/uL MPV 9.5 (7.4-10.4) fL Immature Gran % (Auto) 0.3 % Neut % (Auto) 76.1 % Lymph % (Auto) 12.7 % [place] % (Auto) 9.2 % Eos % (Auto) 1.6 % Baso % (Auto) 0.1 % Neut # (Auto) 5.86 (1.4-6.5) K/uL Lymph # (Auto) 0.98 L (1.2-3.4) K/uL [place] # (Auto) 0.71 H (0.11-0.59) K/uL Eos # (Auto) 0.12 (0-0.5) K/uL Baso # (Auto) 0.01 (0-0.2) K/uL Immature Gran # (Auto) 0.02 (0.00-0.02) K/uL Sodium 128 L (136-145) mmol/L Potassium 4.3 (3.5-5.1) mmol/L Chloride 94 L (98-107) mmol/L Carbon Dioxide 26 (21-32) mmol/L Anion Gap 8.0 (3-11) BUN 20 H (7-18) mg/dl Creatinine 0.86 (0.6-1.2) mg/dl Est Cr Clr Drug Dosing 45.5 ml/min Est GFR ( Amer) 78.2 Est GFR (Non-Af Amer) 67.5 BUN/Creatinine Ratio 22.9 H (10-20) Glucose 84 (70-99) mg/dl Calcium 9.1 (8.5-10.1) mg/dl Total Bilirubin 0.7 (0.2-1) mg/dl AST 48 H (15-37) U/L ALT 45 (12-78) U/L Alkaline Phosphatase 84 (45-117) U/L Troponin I < 0.015 (0-0.045) ng/ml Total Protein 7.0 (6.4-8.2) gm/dl Albumin 3.8 (3.4-5.0) gm/dl Globulin 3.2 (2.5-4.0) gm/dl Albumin/Globulin Ratio 1.2 (0.9-2) Lipase 191 (73-393) U/L Administered Medications Sodium Chloride (Nss 1000ml) 1,000 mls @ 100 mls/hr IV .Q10H YOLANDA Stop: 04/11/20 13:59 Last Admin: 03/12/20 16:32 Dose: 100 mls/hr Documented by: [id number] Morphine Sulfate (Morphine Sulfate 4 Mg/Ml 1 Ml Carp\Vial) 4 mg IV Q4H PRN PRN Reason: Pain Stop: 03/26/20 13:57 Last Admin: 03/12/20 16:31 Dose: 4 mg Documented by: [id number] Discontinued Medications Fentanyl Citrate (Fentanyl Citrate 100 Mcg/2 Ml Vial) 50 mcg IV Q15M PRN PRN Reason: Pain Stop: 03/26/20 11:49 Last Admin: 03/12/20 14:07 Dose: 50 mcg Documented by: [id number] Admin: 03/12/20 12:05 Dose: 50 mcg Documented by: [id number] Sodium Chloride (Nss) 500 mls @ 999 mls/hr IV .Q31M YOLANDA Stop: 03/12/20 12:30 Last Infusion: 03/12/20 12:53 Dose: 0 mls/hr Documented by: [id number] Admin: 03/12/20 12:08 Dose: 999 mls/hr Documented by: [id number] Sodium Chloride (Nss 1000ml) 1,000 mls @ 999 mls/hr IV .Q1H1M ONE Stop: 03/12/20 14:45 Last Infusion: 03/12/20 15:24 Dose: 0 mls/hr Documented by: [id number] Admin: 03/12/20 14:07 Dose: 999 mls/hr Documented by: [id number] Ondansetron HCl (Ondansetron Inj 2 Mg/Ml 2 Ml Vial) 4 mg IV NOW STA Stop: 03/12/20 11:51 Last Admin: 03/12/20 12:05 Dose: 4 mg Documented by: [id number] Imaging Data Radiologist's Impression: Patient: ZAIRA ANDRES Date: 03/12/20 MR#: [id number]: [id number] Acct ID:[id number]: Date: 1945[facility] Zip: [place] [address] Age: 74Location: ED Sex: FRoom/Bed: Att Phy:Diagnosis: HIP PAIN Che Phy: RV. Gregoria, MDService Date: 03/12/20 Fam Phy:Interpreting Phy: Narendra Torres MD Admit Phy: Ordering Phy: Elfego Felipe PA-C (EGarcia) cc: ~ XR lumbar spine 2-3V CLINICAL HISTORY: low back pain COMPARISON STUDY: Lumbar spine radiographs September 29, 2015. Lumbar spine MRI April 27, 2017. FINDINGS: Dislocation of the femoral component of the left hip arthroplasty with fractured metallic ring is better depicted on the left hip radiographs. There is moderate levoscoliosis of the lumbar spine. Severe multilevel disc space narrowing and osteophytosis is noted. There is also severe multilevel facet arthrosis. No acute lumbar spine fracture is noted. IMPRESSION: 1. No acute lumbar spine fracture. 2. Severe multilevel degenerative changes within the lumbar spine. 3. Moderate levoscoliosis of the lumbar spine. ACT 112: Negative or not required by law. Electronically signed by: Narendra Torres M.D. 03/12/2020 2:09 PM Dictated: 03/12/20 1407 Transcribed: 03/12/20 1407 Patient: ZAIRA ANDRES Date: 03/12/20 MR#: [id number]: [id number] Acct ID:[id number]: Date: 1945[facility] Zip: [place] [address] Age: 74Location: ED Sex: FRoom/Bed: Att Phy:Diagnosis: HIP PAIN Che Phy: HELADIO Kinney., MDService Date: 03/12/20 Fam Phy:Interpreting Phy: Kraig Minor MD Admit Phy: Ordering Phy: Felton Doe DO cc: ~ XR chest 1V portable CLINICAL HISTORY: Preoperative chest COMPARISON STUDY: 12/05/2019 FINDINGS: There is pulmonary emphysema. Patient is hyperinflated. There is no focal pulmonary consolidation. There is a 4 mm nodule adjacent the left heart border likely postinflammatory. No pleural effusions are visualized on the supine study.[ IMPRESSION: No active disease in the chest. ACT 112: Negative or not required by law. Electronically signed by: Kraig Minor M.D. 03/12/2020 2:06 PM Dictated: 03/12/201404 Transcribed: 03/12/201404 Patient: ZAIRA ANDRES Date: 03/12/20 MR#: [id number]: [id number] Acct ID:[id number]: Date: 1945[facility] Zip: [place] [address] Age: 74Location: ED Sex: FRoom/Bed: Att Phy:Diagnosis: HIP PAIN Che Phy: HELADIO Kinney., MDService Date: 03/12/20 Fam Phy:Interpreting Phy: Mat Murrieta Admit Phy: Ordering Phy: Felton Doe DO cc: ~ XR hip LT 2V w pelvis HISTORY: 74 years-old Female fall acute left hip pain status post fall COMPARISON: Pelvis and left hip radiographs 11/30/2019 TECHNIQUE: AP view the pelvis with 2 views of the left hip FINDINGS: Moderate right hip osteoarthritis. Left hip total joint arthroplasty. No acute fracture. There is superior and anterior dislocation of the femoral head prosthesis. There is a fractured ring component of the prosthesis which was previously noted flow of the mid femoral prosthesis with fractured fragment of the hardware measuring up to 4.5 cm which is displaced posteriorly approximately 2.5 cm. IMPRESSION: Left hip total joint arthroplasty with superior and anterior dislocation of the femoral head prosthesis. Fractured metallic ring component of the prosthesis is displaced posteriorly. ACT 112: Negative or not required by law. The above report was generated using voice recognition software. It may contain grammatical, syntax or spelling errors. Electronically signed by: Aníbal Murrieta M.D. 03/12/2020 12:44 PM Dictated: 03/12/20 1242 Transcribed: 03/12/20 1242 Blood Pressure Blood Pressure Findings: Elevated blood pressure Blood Pressure Disposition: further management by hospitalist Discharge Plan Visit Data Chief Complaint: Hip Pain ED Provider: Felton Doe Discharge Problem: Dislocation of hip, left, closed, Acute hyponatremia Patient Disposition: Admitted As Inpatient Condition: Good Discharge Instructions Interventions: ED Discharge Assessment Last Done: 03/12/20 15:36
[2020-03-12 12:57] LABS: Basophils # (auto) 0.01 K/uL (0-0.2); Basophils % (auto) 0.1 %; Eosinophils # (auto) 0.12 K/uL (0-0.5); Eosinophils % (auto) 1.6 %; Hematocrit (blood only) 33.4 % (37-47); Hemoglobin 11.7 g/dL (12.0-16.0); Immature Granulocytes # (auto) 0.02 K/uL (0.00-0.02); Immature Granulocytes % (auto) 0.3 %; Lymphocytes # (auto) 0.98 K/uL (1.2-3.4); Lymphocytes % (auto) 12.7 %; Mean Corpuscular Hemoglobin 35.3 pg (25-34); Mean Corpuscular Volume 100.9 fL (80-100); Mean Platelet Volume 9.5 fL (7.4-10.4); Monocytes # (auto) 0.71 K/uL (0.11-0.59); Monocytes % (auto) 9.2 %; Neutrophils # (auto) 5.86 K/uL (1.4-6.5); Neutrophils % (auto) 76.1 %; Platelet Count 177 K/uL (130-400); RDW Coefficient of Variation 12.3 % (11.5-14.5); RDW Standard Deviation 45.4 fL (36.4-46.3); Red Blood Count 3.31 M/uL (4.2-5.4)
[2020-03-12 13:14] LABS: Albumin Level 3.8 gm/dl (3.4-5.0); BUN Creatinine Ratio 22.9 (10-20); Calcium 9.1 mg/dl (8.5-10.1); Creatinine Clr Calc Pharmacy 45.5 ml/min; Est GFR (African American) 78.2; Est GFR (Non-African American) 67.5; Potassium 4.3 mmol/L (3.5-5.1)
[2020-03-12 13:17] LABS: Albumin Globulin Ratio 1.2 (0.9-2); Bilirubin,Total 0.7 mg/dl (0.2-1); Globulin 3.2 gm/dl (2.5-4.0)
[2020-03-12] MEDS ORDERED: SODIUM CHLORIDE 0.9% 1000ML 1,000 ML IV ONE (13:45)
[2020-03-12] MEDS ORDERED: ONDANSETRON INJ 2 MG/ML 2 ML VIAL IV PRN (13:48)
[2020-03-12] MEDS ORDERED: ALUMINUM/MAGNESIUM SUSP 30 ML UDC PO PRN (13:48)
[2020-03-12] MEDS ORDERED: MAGNESIUM HYDROXIDE SUSP 30 ML UDC PO PRN (13:48)
--- NOTE | 2020-03-12 14:07 | XRay Report ---
XR chest 1V portable CLINICAL HISTORY: Preoperative chest COMPARISON STUDY: 12/05/2019 FINDINGS: There is pulmonary emphysema. Patient is hyperinflated. There is no focal pulmonary consoli dation. There is a 4 mm nodule adjacent the left heart border likely postinflammatory. No pleural eff usions are visualized on the supine study.[ IMPRESSION: No active disease in the chest. ACT 112: Negative or not required by law. Electronically signed by: Kraig Minor M.D. 03/12/2020 2:06 PM
--- NOTE | 2020-03-12 14:10 | XRay Report ---
XR lumbar spine 2-3V CLINICAL HISTORY: low back pain COMPARISON STUDY: Lumbar spine radiographs September 29, 2015. Lumbar spine MRI April 27, 2017. FINDINGS: Dislocation of the femoral component of the left hip arthroplasty with fractured metallic r ing is better depicted on the left hip radiographs. There is moderate levoscoliosis of the lumbar spi ne. Severe multilevel disc space narrowing and osteophytosis is noted. There is also severe multileve l facet arthrosis. No acute lumbar spine fracture is noted. IMPRESSION: 1. No acute lumbar spine fracture. 2. Severe multilevel degenerative changes within the lumbar spine. 3. Moderate levoscoliosis of the lumbar spine. ACT 112: Negative or not required by law. Electronically signed by: Narendra Torres M.D. 03/12/2020 2:09 PM
--- NOTE | 2020-03-12 14:23 | History & Physical Report ---
Date of Service March 12, 2020 Assessment & Plan (1) Dislocation of hip, left, closed: Patient was evaluated in room B12 in the ED. She will be admitted to orthopedics. Consult will be placed to the hospitalist service for medical clearance in anticipation of surgical intervention tomorrow morning. She may eat tonight. N.p.o. after midnight. Preop antibiotics have been ordered for the morning. Informed written consent to proceed with revision of her cup has already been obtained by Dr. Card, who also evaluated her today. COVID nasal swab testing will be obtained today. She is currently asymptomatic of any COVID-19 symptoms. She denies any known exposure. I did speak with the patient regarding her CODE STATUS and she would like to be full code. Bed rest at this time. History of Present Illness Chief Complaint: Left hip pain Primary Care Provider: Andres Corral MD This 74-year-old white female was seen in the ED today. Patient states she was hanging clothes in her closet today and reached for the blue line hanger bar. She felt a pain in her left hip and then felt her hip dislocate. She fell to the floor. Patient was unable to ambulate. She arrives to the ED by [facility] ambulance. Films in the ED showed a dislocation of her total hip arthroplasty. She does have a constrained liner, which appears to be broken. Her accompanies her today. Patient denies any chest pain, shortness of breath, or loss of consciousness. She denies flexing her hip too far or internally rotating the leg at the time of the dislocation. She does have a history of multiple dislocations in the past, but none since her constrained liner placement November 19, 2016. Allergies Allergy/AdvReac Type Severity Reaction Status Date / Time animal dander Allergy Unknown NASAL Verified 03/12/20 13:34 CONGESTION, WATERY EYES No Known Drug Allergies AdvReac Unknown Verified 03/12/20 13:34 amlodipine AdvReac LE Verified 03/12/20 13:34 swelling lisinopril AdvReac Sick in Verified 03/12/20 13:34 stomach ENVIRONMENTAL ALLERGIES Allergy Unknown NASAL Uncoded 03/12/20 13:34 CONGESTION, WATERY EYES Home Medications Home Medications Medication Instructions Recorded Confirmed Type ascorbic acid (vitamin C) [Vitamin 500 mg PO DAILY 12/15/18 03/12/20 History C] cholecalciferol (vitamin D3) 2,000 unit PO DAILY 12/15/18 03/12/20 History [Vitamin D3] fexofenadine [Marely Allergy] 180 mg PO DAILY 12/15/18 03/12/20 History magnesium 250 mg PO DAILY 12/15/18 03/12/20 History omega-3 fatty acids-fish oil [Fish 1 cap PO DAILY 12/15/18 03/12/20 History Oil] vitamin P95-[id number] acid 1 tab PO DAILY 12/15/18 03/12/20 History glucosamine-chondroitin 250 mg-200 1 tab PO BID tab 01/29/19 03/12/20 History mg tablet multivit-iron 18 mg-folic acid 400 1 tab PO DAILY tab 01/29/19 03/12/20 History mcg-calcium 500 mg-minerals tablet Synthroid 112 mcg tablet 112 mcg PO DAILY #90 tab NS 04/09/19 03/12/20 Rx valacyclovir 500 mg tablet 500 mg PO DAILY #90 tab 09/27/19 03/12/20 Rx temazepam 15 mg capsule 15 mg PO QPM #90 cap 10/23/19 03/12/20 Rx diclofenac sodium 75 mg 75 mg PO BID #180 tab 11/21/19 03/12/20 Rx tablet,delayed release fluoxetine 20 mg capsule 20 mg PO DAILY #90 cap 11/21/19 03/12/20 Rx Prempro 1 tab PO WK 12/05/19 03/12/20 History montelukast 10 mg tablet 10 mg PO PM #90 tab 12/20/19 03/12/20 Rx amlodipine 10 mg tablet 10 mg PO DAILY #90 tab 01/22/20 03/12/20 Rx hydrochlorothiazide 25 mg tablet 25 mg PO DAILY #90 tab 02/28/20 03/12/20 Rx valsartan 80 mg tablet 80 mg PO DAILY #90 tab 02/28/20 03/12/20 Rx Past Med/Surg History Medical History Allergic rhinitis due to cats Allergic rhinitis due to dust Allergic rhinitis due to pollen Arthritis BACK AND HIP Chronic back pain Depression with anxiety Exercise-induced asthma H/O Graves' disease (1996) s/p I 131 History of high blood pressure HX MED, RECENTLY D/C'D - AND MONITORS WITH PCP Hypothyroidism, postablative (1996) Left lumbar radiculopathy Low back pain Primary osteoarthritis of hand Scoliosis Spinal stenosis Thyroid disease Surgical History History of bilateral tubal ligation (1974) History of colonoscopy (12/16/17) History of surgery LEFT HIP X2 REVISIONS History of tonsillectomy History of total hip arthroplasty LEFT History of total knee replacement LEFT Right ACL tear (1992) RECONSTRUCTIVE SURGERY Family History Mother Breast cancer Father Myocardial infarction Aunt Ovarian cancer Breast cancer Other Family history of diabetes mellitus in father Denies family history of Colorectal cancer Social History Smoking Status: Never smoker Second Hand Exposure: Yes; Hx Alcohol Use: Yes Alcohol type: beer and hard liquor Hx Substance Use: No Preferred Language: Spanish Communication Ability: Effective Visual Impairment: No Limitations Hearing Ability: Normal Car Seat Maker Required: No Beliefs That Will Affect Care: None marital status: Current Living Situation: Spouse current occupational status: retired current occupation: [employer], worked at [employer], 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 Physical Exam Physical Exam: General: Well-developed, well-nourished, elderly white female, in obvious discomfort. No acute distress. Laying on a bed. Alert and oriented. Skin: Warm and dry with good turgor. No rashes or lesions. No ecchymosis or erythema. The patient is not diaphoretic. No abrasions. Well-healed surgical scar on the left hip. No evidence of skin breakdown or laceration. HEENT: Normocephalic atraumatic. Eyes PERRLA, EOMI. No conjunctiva or scleral injection. Nares patent bilaterally without turbinate enlargement. No significant drainage. No epistaxis. Oropharynx without erythema or exudate. Uvula midline, oral mucosa moist. No lesions present. Extensive dental caps and fillings are present. Heart: Heart RRR. No MGR. Peripheral pulses are 2+. Lungs: Lungs are clear to auscultation. No crackles rhonchi or wheezing. Good air movement. The patient is able to take a deep breath. Abdomen: Abdomen was inspected, auscultated, and palpated. Bowel sounds present x 4. Soft, nontender to palpation. No hepato-splenomegaly. No masses noted. No rebound. Mildly obese. Musculoskeletal: Left leg is slightly shortened and externally rotated. She has exquisite hip discomfort with any attempted motion of the left leg. She has intact motor function to her ankle and toes. She is able to dorsiflex with 5 out of 5 strength. Flexion of the hip was not attempted given her dislocation status. She has intact motor function of the right hip. Neurologic: Gross sensation is intact across both lower extremities by soft touch. Peripheral pulses are 2+. Femoral nerve function is intact. Results & Data Results & Data ([facility]) Vital Signs (Past 12 Hours) Vital Signs Temp Pulse Resp BP Pulse Ox 03/12/20 11:43 36.8 C 71 20 181/84 H 98 Laboratory Results CBC, chemistry panel, lipase, and troponin were obtained today. Diagnostic Findings Radiographic imaging obtained today of the pelvis and left hip shows a dislocated total hip prosthesis. The constraining ring on the liner has been broken. Chest x-ray obtained today is pending. Lumbar spine films obtained today show significant scoliotic curvature and osteoarthritic change throughout the lumbar spine. No evidence of fracture. Films will be read by radiology. ECG Additional Comments: EKG obtained today in the ED shows a normal sinus rhythm with a rate of 68. No acute ST changes. Code Status & VTE Plan VTE Prophylaxis Plan VTE Prophylaxis will be ordered: Yes (1) Dislocation of hip, left, closed Encounter type: initial encounter Qualified Code(s): S73.005A - Unspecified dislocation of left hip, initial encounter
[2020-03-12 14:43] LABS: Appearance Urine Clear (Clear); Bacteria Urine Automated 2+ (Negative); Bilirubin Urine Negative (Negative); Blood Urine Trace (Negative); Color Urine Yellow; Glucose Urine UA Negative (Negative); Ketones Urine 1+ (Negative); Leukocyte Esterase Urine 1+ (Negative); Nitrite Urine Positive (Negative); Protein Urine Negative (Negative); Specific Gravity Urine 1.014 (1.000-1.030); Urobilinogen Urine Negative (Negative); WBC Urine Automated >30 /hpf (0-5); pH Urine 7.5 (4.5-7.5)
--- NOTE | 2020-03-12 15:15 | Consultation ---
Date of Consultation March 12, 2020 Assessment & Plan (1) Encounter for perioperative consultation: Ms Archibald is a 74yo female with HTN but no known CAD, CHF, dysrhythmia, or other cardiovascular disease. Her PCP had recently been adjusting her BP meds for improved BP control with recent addition of HCTZ about 4 weeks ago to her medication regimen. BPs are indeed elevated at time of admission today some of which could be pain- related. She lives a fairly normal lifestyle with minimal dyspnea on exertion with climbing a flight of stairs. She has no chest pain or other ischemic symptoms. She carries a diagnosis of exercise induced asthma. Overall the latter has not been active of late. Likely due to recent HCTZ initiation she presents with mild, seemingly asymptomatic hyponatremia. CXR and EKG are stable. From a cardiovascular standpoint she is medically optimized as long as BPs remain reasonably controlled overnight. To that end will hold her HCTZ due to the hyponatremia and substitute a low-dose beta mi (coreg 3.125mg BID). Continue amlodipine. If creatinine remains stable continue low-dose ARB. Appears to have a UTI and will Rx with rocephin IV. (2) Dislocation of hip, left, closed: To OR tomorrow with Dr Card for left hip revision of constrained liner. NPO after MN tonight for such. (3) Acute hyponatremia: Sodium levels in the past have been normal. HCTZ was started about 4 weeks ago by PCP. Her acute hyponatremia is likely from the thiazide. Stop the HCTZ. Agree with NS hydration overnight. BMP in am for stability. I see no other meds or etiology to account for the acute drop in Na level. Await serum osm, urine osm, urine Na. (4) Hypothyroidism: TSh 12/2019 wnl. Cont synthroid at prior dose. (5) Hypertension: HOLD HCTZ due to low Na. Substitute coreg 3.125mg BID. Cont ARB if creatinine is stable. Current ARB - valsartan 80mg daily. Of note - office records indicate that in early February, when the HCTZ was started, her amlodipine was stopped at that time. (6) Exercise-induced asthma: no recent issues (7) UTI (urinary tract infection): u/a suggestive of UTI. urine cx sent. start rocephin 1gm daily. (8) DVT prophylaxis: defer to orthopedics thank you for this consult. our team will follow with you. History of Present Illness Requesting Physician: Richard Card MD Reason for Consultation: medical optimization for left hip surgery Attending Physician: Richard Card MD History of Present Illness Pleasant 74yo female with history of HTN, hypothyroidism, allergies on immunotherapy, and prior left hip replacement presents with acute dislocation of her left hip. Patient reports she was in her closet placing items on the card hanger bar when she felt a pain in the left hip. This was followed by the sensation of the hip dislocating. She immediately fell to the ground and was unable to get up. EMS was summoned to her home and she was brought to [facility] for evaluation. x-rays in the ER demonstrate dislocation of the left hip with a fractured ring (liner). The ER consulted [facility] who is admitting the patient to the hospital and plans for left hip revision of constrained liner tomorrow. We were asked by orthopedics to ensure she is medically optimized for surgery. Prior to the event today patient reports she has been feeling well. With the except of sinus congestion (has not had her allergy shots since beginning of ) and [id number] HTN she otherwise denies fevers, chills, loss of taste or smell, chest pain, dyspnea, abdominal pain, nausea, emesis, dysuria. She can climb a flight of stairs without any limitation. She recently had HCTZ added to her antihypertensive regimen about 4 weeks ago. When the HCTZ was started her amlodipine was stopped. Also, valsartan was added mid-February by her PCP. Allergies Allergy/AdvReac Type Severity Reaction Status Date / Time animal dander Allergy Unknown NASAL Verified 03/12/20 13:34 CONGESTION, WATERY EYES No Known Drug Allergies AdvReac Unknown Verified 03/12/20 13:34 amlodipine AdvReac LE Verified 03/12/20 13:34 swelling lisinopril AdvReac Sick in Verified 03/12/20 13:34 stomach ENVIRONMENTAL ALLERGIES Allergy Unknown NASAL Uncoded 03/12/20 13:34 CONGESTION, WATERY EYES Home Medications Home Medications Medication Instructions Recorded Confirmed Type ascorbic acid (vitamin C) [Vitamin 500 mg PO DAILY 12/15/18 03/12/20 History C] cholecalciferol (vitamin D3) 2,000 unit PO DAILY 12/15/18 03/12/20 History [Vitamin D3] fexofenadine [Marely Allergy] 180 mg PO DAILY 12/15/18 03/12/20 History magnesium 250 mg PO DAILY 12/15/18 03/12/20 History omega-3 fatty acids-fish oil [Fish 1 cap PO DAILY 12/15/18 03/12/20 History Oil] vitamin V21-caojk acid 1 tab PO DAILY 12/15/18 03/12/20 History glucosamine-chondroitin 250 mg-200 1 tab PO BID tab 01/29/19 03/12/20 History mg tablet multivit-iron 18 mg-folic acid 400 1 tab PO DAILY tab 01/29/19 03/12/20 History mcg-calcium 500 mg-minerals tablet Synthroid 112 mcg tablet 112 mcg PO DAILY #90 tab NS 04/09/19 03/12/20 Rx valacyclovir 500 mg tablet 500 mg PO DAILY #90 tab 09/27/19 03/12/20 Rx temazepam 15 mg capsule 15 mg PO QPM #90 cap 10/23/19 03/12/20 Rx diclofenac sodium 75 mg 75 mg PO BID #180 tab 11/21/19 03/12/20 Rx tablet,delayed release fluoxetine 20 mg capsule 20 mg PO DAILY #90 cap 11/21/19 03/12/20 Rx Prempro 1 tab PO WK 12/05/19 03/12/20 History montelukast 10 mg tablet 10 mg PO PM #90 tab 12/20/19 03/12/20 Rx amlodipine 10 mg tablet 10 mg PO DAILY #90 tab 01/22/20 03/12/20 Rx hydrochlorothiazide 25 mg tablet 25 mg PO DAILY #90 tab 02/28/20 03/12/20 Rx valsartan 80 mg tablet 80 mg PO DAILY #90 tab 02/28/20 03/12/20 Rx Patient History Medical History Allergic rhinitis due to cats Allergic rhinitis due to dust Allergic rhinitis due to pollen Arthritis BACK AND HIP Chronic back pain Depression with anxiety Exercise-induced asthma H/O Graves' disease (1996) s/p I 131 History of high blood pressure HX MED, RECENTLY D/C'D - AND MONITORS WITH PCP Hypothyroidism, postablative (1996) Left lumbar radiculopathy Low back pain Primary osteoarthritis of hand Scoliosis Spinal stenosis Thyroid disease Surgical History History of bilateral tubal ligation (1974) History of colonoscopy (12/16/17) History of surgery LEFT HIP X2 REVISIONS History of tonsillectomy History of total hip arthroplasty LEFT History of total knee replacement LEFT Right ACL tear (1992) RECONSTRUCTIVE SURGERY Family History Mother Breast cancer Father Myocardial infarction Aunt Ovarian cancer Breast cancer Other Family history of diabetes mellitus in father Denies family history of Colorectal cancer Social History Smoking Status: Never smoker Second Hand Exposure: Yes; Hx Alcohol Use: Yes Alcohol type: hard liquor Hx Substance Use: No Preferred Language: Romanian Communication Ability: Effective Visual Impairment: No Limitations Hearing Ability: Normal Management Developer Required: No Beliefs That Will Affect Care: None marital status: Current Living Situation: Spouse current occupational status: retired 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 occupation: [employer], 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[employer], 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 Other Information That Helps Us Care for You: No Feels Safe at Home: Yes Safety Concerns: Feels Safe At This Time Childhood Exposure to Second-Hand Smoke: Yes Dental Care, Regularly: Yes Physical Activity Frequency: 3-4 Times per Week Seatbelt Use: always Sunscreen Use: Yes Assistive Devices: Glasses and Walker Review of Systems Constitutional: no fever, no chills, no fatigue and no anorexia Eyes: no worsening vision Ear, Nose, Mouth, Throat: + nasal congestion and + nasal discharge; no sore throat no loss of taste/smell Respiratory: + dyspnea on exertion (Minimal - baseline); no cough and no dyspnea Cardiovascular: no chest pain and no edema Gastrointestinal: no abdominal pain, no nausea and no vomiting Genitourinary: no dysuria Musculoskeletal: + joint pain Integumentary: no rash Neurologic: no localized weakness Psychiatric: + depression (Controlled w/ prozac) Endocrine: denies diabetes Hematologic / Lymphatic: no easy bleeding Physical Exam Constitutional: well developed and well nourished; no acute distress and no altered mental status Eyes: PERRL ENMT: external ear and nose normal, oropharynx normal Neck: trachea midline, no thyromegaly Respiratory: normal respiratory effort, lungs clear to auscultation Cardiovascular: Rate/Rhythm: regular rate and regular rhythm Heart Sounds: normal S1 and normal S2; no murmur Vessels: posterior tibial pulses present and dorsalis pedis pulses present; no JVD Extremities: no edema Gastrointestinal (Abdomen): normal bowel sounds, soft, nontender, no hepatosplenomegaly Musculoskeletal: left leg is shorter than right leg; leg is externally rotated Skin: no rashes, warm and dry Neurologic: moves all extremities (I did not test the LLE strength due to hip dislocation) Psychiatric: Orientation: alert and oriented x 3 Lymphatic: no cervical lymphadenopathy Results & Data ([facility]) Vital Signs (Past 12 Hours) Vital Signs Temp Pulse Resp BP Pulse Ox 03/12/20 14:40 100 H 14 03/12/20 14:30 68 13 127/91 100 03/12/20 14:20 70 10 L 98 03/12/20 14:12 80 14 153/87 H 96 03/12/20 14:10 68 20 03/12/20 14:02 68 13 03/12/20 11:43 36.8 C 71 20 181/84 H 98 Laboratory Results Laboratory Results - last 24 hr 03/12/20 03/12/20 03/12/20 12:47 12:47 12:47 WBC 7.70 RBC 3.31 L Hgb 11.7 L Hct 33.4 L MCV 100.9 H MCH 35.3 H MCHC 35.0 RDW Std Deviation 45.4 RDW Coeff of Dmitri 12.3 Plt Count 177 MPV 9.5 Immature Gran % (Auto) 0.3 Neut % (Auto) 76.1 Lymph % (Auto) 12.7 [place] % (Auto) 9.2 Eos % (Auto) 1.6 Baso % (Auto) 0.1 Neut # (Auto) 5.86 Lymph # (Auto) 0.98 L [place] # (Auto) 0.71 H Eos # (Auto) 0.12 Baso # (Auto) 0.01 Immature Gran # (Auto) 0.02 Sodium 128 L Potassium 4.3 Chloride 94 L Carbon Dioxide 26 Anion Gap 8.0 BUN 20 H Creatinine 0.86 Est Cr Clr Drug Dosing 45.5 Est GFR ( Amer) 78.2 Est GFR (Non-Af Amer) 67.5 BUN/Creatinine Ratio 22.9 H Glucose 84 Osmolality Calcium 9.1 Total Bilirubin 0.7 AST 48 H ALT 45 Alkaline Phosphatase 84 Troponin I < 0.015 Total Protein 7.0 Albumin 3.8 Globulin 3.2 Albumin/Globulin Ratio 1.2 Lipase 191 Urine Color Urine Appearance Urine pH Ur Specific [place] Urine Protein Urine Glucose (UA) Urine Ketones Urine Blood Urine Nitrite Urine Bilirubin Urine Urobilinogen Ur Leukocyte Esterase Urine WBC (Auto) Urine RBC (Auto) U Hyaline Cast (Auto) U Epithel Cells (Auto) Urine Bacteria (Auto) Urine Osmolality Ur Random Sodium COVID-19 Eval Order Hepatitis C Ab Screen SARS-CoV-2, RNA, NAAT Blood Type Antibody Screen 03/12/20 03/12/20 03/12/20 14:34 14:34 14:34 WBC RBC Hgb Hct MCV MCH MCHC RDW Std Deviation RDW Coeff of Dmitri Plt Count MPV Immature Gran % (Auto) Neut % (Auto) Lymph % (Auto) [place] % (Auto) Eos % (Auto) Baso % (Auto) Neut # (Auto) Lymph # (Auto) [place] # (Auto) Eos # (Auto) Baso # (Auto) Immature Gran # (Auto) Sodium Potassium Chloride Carbon Dioxide Anion Gap BUN Creatinine Est Cr Clr Drug Dosing Est GFR ( Amer) Est GFR (Non-Af Amer) BUN/Creatinine Ratio Glucose Osmolality Calcium Total Bilirubin AST ALT Alkaline Phosphatase Troponin I Total Protein Albumin Globulin Albumin/Globulin Ratio Lipase Urine Color Yellow Urine Appearance Clear Urine pH 7.5 Ur Specific [place] 1.014 Urine Protein Negative Urine Glucose (UA) Negative Urine Ketones 1+ H Urine Blood Trace H Urine Nitrite Positive A Urine Bilirubin Negative Urine Urobilinogen Negative Ur Leukocyte Esterase 1+ H Urine WBC (Auto) >30 H Urine RBC (Auto) 5-10 H U Hyaline Cast (Auto) 5-10 H U Epithel Cells (Auto) 5-10 H Urine Bacteria (Auto) 2+ H Urine Osmolality 454 L Ur Random Sodium 84 COVID-19 Eval Order Hepatitis C Ab Screen SARS-CoV-2, RNA, NAAT Blood Type Antibody Screen 03/12/20 03/12/20 03/12/20 14:38 14:38 14:50 WBC RBC Hgb Hct MCV MCH MCHC RDW Std Deviation RDW Coeff of Dmitri Plt Count MPV Immature Gran % (Auto) Neut % (Auto) Lymph % (Auto) [place] % (Auto) Eos % (Auto) Baso % (Auto) Neut # (Auto) Lymph # (Auto) [place] # (Auto) Eos # (Auto) Baso # (Auto) Immature Gran # (Auto) Sodium Potassium Chloride Carbon Dioxide Anion Gap BUN Creatinine Est Cr Clr Drug Dosing Est GFR ( Amer) Est GFR (Non-Af Amer) BUN/Creatinine Ratio Glucose Osmolality 269 L Calcium Total Bilirubin AST ALT Alkaline Phosphatase Troponin I Total Protein Albumin Globulin Albumin/Globulin Ratio Lipase Urine Color Urine Appearance Urine pH Ur Specific [place] Urine Protein Urine Glucose (UA) Urine Ketones Urine Blood Urine Nitrite Urine Bilirubin Urine Urobilinogen Ur Leukocyte Esterase Urine WBC (Auto) Urine RBC (Auto) U Hyaline Cast (Auto) U Epithel Cells (Auto) Urine Bacteria (Auto) Urine Osmolality Ur Random Sodium COVID-19 Eval [facility] Hep[facility] C Ab Screen SARS-CoV-2, RNA, NAAT NEGATIVE Blood Type Antibody Screen 03/12/20 03/12/20 14:50 14:50 WBC RBC Hgb Hct MCV MCH MCHC RDW Std Deviation RDW Coeff of Dmitri Plt Count MPV Immature Gran % (Auto) Neut % (Auto) Lymph % (Auto) [place] % (Auto) Eos % (Auto) Baso % (Auto) Neut # (Auto) Lymph # (Auto) [place] # (Auto) Eos # (Auto) Baso # (Auto) Immature Gran # (Auto) Sodium Potassium Chloride Carbon Dioxide Anion Gap BUN Creatinine Est Cr Clr Drug Dosing Est GFR ( Amer) Est GFR (Non-Af Amer) BUN/Creatinine Ratio Glucose Osmolality Calcium Total Bilirubin AST ALT Alkaline Phosphatase Troponin I Total Protein Albumin Globulin Albumin/Globulin Ratio Lipase Urine Color Urine Appearance Urine pH Ur Specific [place] Urine Protein Urine Glucose (UA) Urine Ketones Urine Blood Urine Nitrite Urine Bilirubin Urine Urobilinogen Ur Leukocyte Esterase Urine WBC (Auto) Urine RBC (Auto) U Hyaline Cast (Auto) U Epithel Cells (Auto) Urine Bacteria (Auto) Urine Osmolality Ur Random Sodium COVID-19 Eval Order Hepatitis C Ab Screen Neg SARS-CoV-2, RNA, NAAT Blood Type O Positive Antibody Screen NEGATIVE Diagnostic Findings cxr - no acute process ekg - my reading - NSR, no ST changes left hip x-rays - dislocation of prosthesis with fracture of ring component PG Care Time/CCT Total # of Minutes Spent Total Time Spent with Patient: Total time spent is greater than 50% in coordination of care (as documented) at patient's floor/unit and/or counseling patient: Coding Level of Care Code 49918 Subseq Hosp Care Lvl 3 Diagnoses Encounter for perioperative consultation Z01.818 Dislocation of hip, left, closed S73.005A Encounter type: initial encounter Acute hyponatremia E87.1 Hypothyroidism E03.9 Hypertension I10 Exercise-induced asthma J45.990 UTI (urinary tract infection) N39.0 DVT prophylaxis Z29.9 (1) Dislocation of hip, left, closed Encounter type: initial encounter Qualified Code(s): S73.005A - Unspecified dislocation of left hip, initial encounter
[2020-03-12] MEDS: MoRPHine SULFATE 4 MG/ML 1 ML CARP\\VIAL IV PRN ×2 (16:31→23:31)
[2020-03-12] MEDS: SODIUM CHLORIDE 0.9% 1000ML 1,000 ML IV SCH (16:32)
--- NOTE | 2020-03-12 17:21 | Progress Notes ---
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 At this point in time, arrangements are being made for her to be taken to the OR tomorrow. Appropriate equipment is being brought in. This will require cup revision and high probability of trochanteric osteotomy. This has all been discussed with the patient in detail. Due to the failed minimal intervention of the constrained liner, the more complicated procedure of acetabular revision is required. She is at higher risk of having continued issues based on her pelvic obliquity and her lumbar scoliosis. As a result, we will try to use a unconstrained dual mobility cup to try to improve the longevity and the stability of the hip. Arrangements are being made for appropriate equipment to be placed. At this point in time, we will have her maintain a diet until midnight and then n.p.o. after midnight.
[2020-03-12] MEDS: DOCUSATE SODIUM 100 MG CAP PO SCH (20:04)
[2020-03-12] MEDS: OXYCODONE/ACETAMINOPHEN 5mg/325mg TAB PO PRN (20:05)
[2020-03-12] MEDS: DiphenhydrAMINE HCL 50 MG/ML VIAL IV PRN (23:31)
[2020-03-13] MEDS: SODIUM CHLORIDE 0.9% 1000ML 1,000 ML IV SCH ×4 (00:30→23:39)
[2020-03-13] MEDS ORDERED: MELATONIN 3 MG TAB PO PRN (00:48)
[2020-03-13] MEDS ORDERED: TEMAZEPAM 15 MG CAPSULE PO ONE (01:01)
[2020-03-13] MEDS: cefTRIAXone SODIUM 1,000 MG in DEXTROSE 5% 50 ML IV SCH (04:04)
[2020-03-13] MEDS ORDERED: CEFAZOLIN 2000MG 2,000 MG/15 ML SYR IV SCH (06:00)
[2020-03-13] MEDS ORDERED: NITROFURANTOIN MONOHYDRATE 100 MG CAP PO STA (06:34)
[2020-03-13 07:15] LABS: BUN Creatinine Ratio 18.3 (10-20); Calcium 8.5 mg/dl (8.5-10.1); Creatinine Clr Calc Pharmacy 49.5 ml/min; Est GFR (African American) 86.7; Est GFR (Non-African American) 74.8
--- NOTE | 2020-03-13 07:21 | Progress Notes ---
DATE: 03/13/2020 SUBJECTIVE: Orthopedic rounds. The patient is resting comfortably in bed, had a reasonable night. Pain is reasonably managed with medication. OBJECTIVE: Vital signs are stable. She is afebrile. Remains slightly hypertensive systolically. At this point in time, awaiting surgical time. Exam reveals sciatica and femoral nerves to be intact. Abdomen soft, nontender. Calves nontender. ASSESSMENT AND PLAN: At this point in time, assessment is broken constrained liner, will need acetabular revision. Awaiting surgical time. ADDENDUM: All questions and answers provided. Consent obtained yesterday. She was very well informed of the high risk nature of this procedure including infection, reinstability fracture, leg length inequality, muscle weakness, limp, etc. She understands this is much more complicated than previous surgeries that she has had.
[2020-03-13] MEDS ORDERED: MIDAZOLAM HCL 1 MG/ML 2ML VIAL ONE ×2 (07:46)
[2020-03-13] MEDS ORDERED: fentaNYL citrate 100 MCG/2 ML VIAL ONE (07:46)
--- NOTE | 2020-03-13 08:41 | History & Physical Bridge Note ---
Date of Service March 13, 2020 History & Physical Bridge Note I have examined the patient, reviewed the History & Physical and in the interval since the performance of the History & Physical I have noted the following changes of clinical significance: consent verified/site verified/covid screen negative.no changes noted
[2020-03-13] MEDS: DiphenhydrAMINE HCL 50 MG/ML VIAL IV PRN (08:47)
[2020-03-13] MEDS: MoRPHine SULFATE 4 MG/ML 1 ML CARP\\VIAL IV PRN ×2 (08:47→17:02)
[2020-03-13] MEDS ORDERED: ATROPINE SULFATE 0.1 MG/ML 10ML SYR IV PRN (08:56)
[2020-03-13] MEDS ORDERED: HYDROmorphone INJ 1 MG/ML SYRINGE IV PRN (08:56)
[2020-03-13] MEDS ORDERED: ONDANSETRON INJ 2 MG/ML 2 ML VIAL IV PRN ×2 (08:56→13:38)
[2020-03-13] MEDS ORDERED: fentaNYL citrate 100 MCG/2 ML VIAL IV PRN (08:56)
[2020-03-13] MEDS ORDERED: ePHEDrine sulfate 50 MG/ML AMP IV PRN (08:56)
[2020-03-13] MEDS ORDERED: carvediloL 3.125 MG TAB PO SCH (09:00)
[2020-03-13] MEDS ORDERED: AMLODIPINE BESYLATE 5 MG TAB PO SCH (09:00)
--- NOTE | 2020-03-13 09:00 | Anesthesiology Consultation ---
Date of Service March 13, 2020 Assessment & Plan (1) Encounter for pre-operative examination: Chart Review Chart Review: Acceptable Risk for Surgery and Patient NOT seen in Pre Admission Testing covid neg 03/12/2020. Consults Requested none History Surgery Operation Date: 03/13/20 09:30 Proposed Procedures p Left Hip Revision of Constrained Liner - Richard Card MD Height/Weight Height: 4 ft 11 in Weight: 57 kg Allergies Allergy/AdvReac Type Severity Reaction Status Date / Time animal dander Allergy Unknown NASAL Verified 03/12/20 13:34 CONGESTION, WATERY EYES No Known Drug Allergies AdvReac Unknown Verified 03/12/20 13:34 amlodipine AdvReac LE Verified 03/12/20 13:34 swelling lisinopril AdvReac Sick in Verified 03/12/20 13:34 stomach ENVIRONMENTAL ALLERGIES Allergy Unknown NASAL Uncoded 03/12/20 13:34 CONGESTION, WATERY EYES Medications Home Medications Medication Instructions Recorded Confirmed Last Taken ascorbic acid (vitamin C) [Vitamin 500 mg PO DAILY 12/15/18 03/12/20 01/08/20 08:00 C] cholecalciferol (vitamin D3) 2,000 unit PO DAILY 12/15/18 03/12/20 03/12/20 [Vitamin D3] fexofenadine [Marely Allergy] 180 mg PO DAILY 12/15/18 03/12/20 01/08/20 08:00 magnesium 250 mg PO DAILY 12/15/18 03/12/20 01/08/20 08:00 omega-3 fatty acids-fish oil [Fish 1 cap PO DAILY 12/15/18 03/12/20 01/08/20 08:00 Oil] vitamin S87-[id number] acid 1 tab PO DAILY 12/15/18 03/12/20 03/12/20 glucosamine-chondroitin 250 mg-200 1 tab PO BID tab 01/29/19 03/12/20 01/08/20 20:00 mg tablet multivit-iron 18 mg-folic acid 400 1 tab PO DAILY tab 01/29/19 03/12/20 01/08/20 08:00 mcg-calcium 500 mg-minerals tablet Synthroid 112 mcg tablet 112 mcg PO DAILY #90 tab NS 04/09/19 03/12/20 01/08/20 07:30 valacyclovir 500 mg tablet 500 mg PO DAILY #90 tab 09/27/19 03/12/20 01/05/20 temazepam 15 mg capsule 15 mg PO QPM #90 cap 10/23/19 03/12/20 01/08/20 20:00 diclofenac sodium 75 mg 75 mg PO BID #180 tab 11/21/19 03/12/20 01/05/20 tablet,delayed release fluoxetine 20 mg capsule 20 mg PO DAILY #90 cap 11/21/19 03/12/20 03/12/20 Prempro 1 tab PO WK 12/05/19 03/12/20 03/12/20 montelukast 10 mg tablet 10 mg PO PM #90 tab 12/20/19 03/12/20 01/08/20 20:00 amlodipine 10 mg tablet 10 mg PO DAILY #90 tab 01/22/20 03/12/20 Unknown hydrochlorothiazide 25 mg tablet 25 mg PO DAILY #90 tab 02/28/20 03/12/20 Un known valsartan 80 mg tablet 80 mg PO DAILY #90 tab 02/28/20 03/12/20 Unknown Active Medications Generic Name Dose Route Start Last Admin Trade Name Freq PRN Reason Stop Dose Admin Diphenhydramine HCl 25 mg 03/12/20 13:48 03/13/20 08:47 Diphenhydramine Hcl 50 Mg/Ml Vial IV 04/11/20 13:47 25 mg Q8H PRN Administration Itching Docusate Sodium 100 mg 03/12/20 21:00 03/12/20 20:04 Docusate Sodium 100 Mg Cap PO 04/11/20 20:59 100 mg BID YOLANDA Administration Sodium Chloride 1,000 mls @ 50 mls/hr 03/12/20 14:00 03/13/20 08:51 Nss 1000ml IV 04/11/20 13:59 0 mls/hr .Q20H YOLANDA Infusion Ceftriaxone Sodium 1,000 mg/ 50 mls @ 100 mls/hr 03/13/20 03:00 03/13/20 04:34 Dextrose IV 03/18/20 02:59 Infused Q24H YOLANDA Infusion Protocol Morphine Sulfate 4 mg 03/12/20 13:58 03/13/20 08:47 Morphine Sulfate 4 Mg/Ml 1 Ml Carp\Vial IV 03/26/20 13:57 4 mg Q4H PRN Administration Pain Oxycodone/Acetaminophen 1 - 2 tab 03/12/20 13:48 03/12/20 20:05 Oxycodone/Acetaminophen 5mg/325mg Tab PO 03/26/20 13:47 2 tab Q4H PRN Administration Pain NPO Date Last Intake of Fluids: 03/13/20 Time Last Intake of Fluids: 01:30 Last Intake of Fluids Comment: small sip with medications Date Last Intake of Solids: 03/12/20 Past Medical History Medical History (Updated 03/13/20 @ 09:00 by Maged Ruggiero MD) Arthritis BACK AND HIP Chronic back pain Depression with anxiety Exercise-induced asthma H/O Graves' disease (1996) s/p I 131 History of high blood pressure HX MED, RECENTLY D/C'D - AND MONITORS WITH PCP Hypothyroidism, postablative (1996) Left lumbar radiculopathy Low back pain Primary osteoarthritis of hand Scoliosis Spinal stenosis Thyroid disease Exercise / Class Metabolic Activity II 4-5 Yardwork/Stairs/Walk up hill Past Family History Family History Mother Breast cancer Father Myocardial infarction Aunt Ovarian cancer Breast cancer Other Family history of diabetes mellitus in father Denies family history of Colorectal cancer Past Surgical History Surgical History History of bilateral tubal ligation (1974) History of colonoscopy (12/16/17) History of surgery LEFT HIP X2 REVISIONS History of tonsillectomy History of total hip arthroplasty LEFT History of total knee replacement LEFT Right ACL tear (1992) RECONSTRUCTIVE SURGERY Past Anesthesia History No Hx of Anesthesia Complications and No Family Hx of Anesthesia Complications Social History Smoking Status: Never smoker Hx Alcohol Use: Yes Alcohol type: hard liquor alcohol intake frequency: 0-2 drinks per day Alcohol Intake Frequency Comment: a shot of vodka per night and socially Hx Substance Use: No substance use type: does not use Physical Exam Vital Signs Last Vital Signs Temp 36.6 C 03/13/20 08:13 Pulse 60 03/13/20 08:13 Resp 16 03/13/20 08:13 BP 109/67 03/13/20 08:13 Pulse Ox 98 03/13/20 08:13 Testing Laboratory Results 03/12/20 12:47 03/13/20 05:57 Urine Color Yellow 03/12/20 14:34 Urine Appearance Clear (Clear) 03/12/20 14:34 Urine pH 7.5 (4.5-7.5) 03/12/20 14:34 Ur Specific [place] 1.014 (1.000-1.030) 03/12/20 14:34 Urine Protein Negative (Negative) 03/12/20 14:34 Urine Glucose (UA) Negative (Negative) 03/12/20 14:34 Urine Ketones 1+ (Negative) H 03/12/20 14:34 Urine Nitrite Positive (Negative) A 03/12/20 14:34 Ur Leukocyte Esterase 1+ (Negative) H 03/12/20 14:34 Urine WBC (Auto) >30 /hpf (0-5) H 03/12/20 14:34 Urine RBC (Auto) 5-10 /hpf (0-4) H 03/12/20 14:34 U Hyaline Cast (Auto) 5-10 /lpf (0-5) H 03/12/20 14:34 U Epithel Cells (Auto) 5-10 /lpf (0-5) H 03/12/20 14:34 Urine Bacteria (Auto) 2+ (Negative) H 03/12/20 14:34 Blood Type O Positive 03/12/20 14:50 Antibody Screen NEGATIVE 03/12/20 14:50 Electrocardiogram Date: 03/12/20 Findings: + NSR @ (68) Normal sinus rhythm Non-specific intra-ventricular conduction block Abnormal ECG When compared with ECG of 05-DEC-2019 12:21, Non-specific intra-ventricular cond uction block has replaced RSR' pattern in V1 Chest X-Ray Date: 03/12/20 XR chest 1V portable CLINICAL HISTORY: Preoperative chest COMPARISON STUDY: 12/05/2019 FINDINGS: There is pulmonary emphysema. Patient is hyperinflated. There is no focal pulmonary consolidation. There is a 4 mm nodule adjacent the left heart border likely postinflammatory. No pleural effusions are visualized on the supine study.[ IMPRESSION: No active disease in the chest.
--- NOTE | 2020-03-13 09:08 | Hospitalist Progress Note ---
Date of Service March 13, 2020 Assessment & Plan (1) Dislocation of hip, left, closed: * 74yo female with HTN but no known CAD, CHF, dysrhythmia, or other cardiovascular disease presented after a fall. Hip/Pelvis Xray with Left hip total joint arthroplasty with superior and anterior dislocation of the femoral head prosthesis. Fractured metallic ring component of the prosthesis is displaced posteriorly. * POD#0 s/p LEFT hip revision with constrained liner with Dr. Calero. EBL roughly 200cc. Pre-op h/h 11.7/33.4. MCV 100.9 and will add B12/folate to AM labs * PT/OT/pain management/DVT prophylaxis per primary service * Continue to treat UTI with Rocephin (culture with gram negative rods -- follow) * Monitor AM labs * Disposition per primary service (2) Hypertension: * Continue to hold HCTZ for hypoNa * Cr remained stable and valsartan was resumed, but we will hold post- operatively * Held carvedilol this AM (substituted for her HCTZ but not on at home), resumed post-operatively by primary team --> BP down to 99/63 post-operatively. Will continue to hold * Increased IVF as above * Also discontinued amlodipine as ordered by primary service as this had been discontinued outpatient * Continue to monitor -- BP currently 116/64 (3) UTI (urinary tract infection): * UA suggestive of UTI -- culture with gram negative bacilli --> follow cx/s * Continue Rocephin (on day 2 of treatment) (4) Acute hyponatremia: * Secondary to thiazide * Sodium levels in the past have been normal but recently started HCTZ as above, on hold * IVF ordered by primary at 50cc/hr but I increased to 100cc/hr * Na only 129 on AM labs -- Serum Osm low 269, Urine Osm 454L, Urine random Na 84. * BMP in AM (5) Encounter for perioperative consultation: * CXR and EKG stable. Recently started on HCTZ a month ago (same time amlodipine was discontinued), later valsartan added as BPs continued to be elevated. * She lives a fairly normal lifestyle with minimal dyspnea on exertion with climbing a flight of stairs. She has no chest pain or other ischemic symptoms. She carries a diagnosis of exercise induced asthma. Overall the latter has not been active of late. * Holding HCTZ given hyponatermia secondary to such. Continued to hold ARB (also held carvedilol this morning for low BP 105/66) * NSS -- IVF increased to 100cc/hr from 50cc as previously ordered * s/p OR as above (6) Hypothyroidism: * TSh 12/2019 wnl. * Continue levothyroxine 112mcg (7) Exercise-induced asthma: * no recent issues (8) DVT prophylaxis: * Defer to orthopedics --> scds/christine hayese, but no chemoprophylaxis ordered as of yet Thank you for allowing medicine team to participate in the care of Mrs. Archibald. Medicine will follow along. Admission and Anticipated Discharge Date Admission Date: March 12, 2020 Supervising Physician Co-Signing Physician Notes PA Supervision Note: I did not personally see or examine the patient today, but I verified all oswald points of JOHNNIE Oswald's assessment and plan with the following exceptions/additions: None Subjective Patient evaluated this afternoon following OR with at bedside. Little drowsy and feeling quite fatigued. She states this is the third time it has needed to be operated on. Pain currently controlled but present. She and confirm she had been rearranging her clothing in closet to exchange summer wardrobe for winter when she felt he legs go out under her with sharp pain. Denies any preceding urinary frequency/urgency or dysuria. Upon review in system, patient has had multiple procedures and we have no urines in our system. She states she typically gets her labwork done out front of the hospital and should be in the system. Discussed culture with gram negative bacilli and will continue abx for coverage and that this in combination with anesthesia may be the reason she is so drowsy and almost whifty this afternoon following surgery, as she had been reported as AxO this morning but seemed a little off as well. No visual changes, headache, blurred vision, fever, chills, chest pain, shortness of breath, cough, abdominal pain, nausea or vomiting at this time. Review of Systems Review of Systems: All systems reviewed & are unremarkable except as noted in HPI & below Physical Exam Constitutional: well developed and well nourished; no acute distress and no altered mental status Eyes: PERRL ENMT: Mouth: + dentition abnormality and + chipped teeth (Front); no TMJ abnormality Mallampati Class: II Neck: trachea midline, no thyromegaly normal visual inspection Respiratory: normal respiratory effort, lungs clear to auscultation normal respiratory effort Auscultation: lungs clear to auscultation bilaterally Cardiovascular: Rate/Rhythm: regular rate and regular rhythm Heart Sounds: normal S1 and normal S2; no murmur Vessels: posterior tibial pulses present and dorsalis pedis pulses present; no JVD Extremities: no edema Gastrointestinal (Abdomen): normal bowel sounds, soft, nontender, no hepatosplenomegaly Musculoskeletal: Spine: normal cervical ROM and no pain with cervical ROM dressing to left hip c/d/i drain with bloody drainage present NVI calves non-tender tender to palpation over greater trochanter and lateral aspect LEFT leg - ecchymosis noted around incision site 2+ pulses dp, pt bilaterally Skin: no rashes, warm and dry Neurologic: moves all extremities Psychiatric: Orientation: alert and oriented x 3 drowsy Genitourinary: nuñez with yellow urine draining Lymphatic: no cervical lymphadenopathy Results & Data Results & Data ([facility]) Vital Signs (Past 12 Hours) Vital Signs Temp Pulse Resp BP Pulse Ox 03/13/20 08:13 36.6 C 60 16 109/67 98 03/12/20 23:50 36.8 C 70 14 162/79 H 94 Laboratory Results 03/13/20 03/12/20 03/12/20 Range/Units 05:57 14:50 14:50 WBC (4.8-10.8) K/uL RBC (4.2-5.4) M/uL Hgb (12.0-16.0) g/dL Hct (37-47) % MCV (80-100) fL MCH (25-34) pg MCHC (32-36) g/dL RDW Std Deviation (36.4-46.3) fL RDW Coeff of Dmitri (11.5-14.5) % Plt Count (130-400) K/uL MPV (7.4-10.4) fL Immature Gran % (Auto) % Neut % (Auto) % Lymph % (Auto) % [place] % (Auto) % Eos % (Auto) % Baso % (Auto) % Neut # (Auto) (1.4-6.5) K/uL Lymph # (Auto) (1.2-3.4) K/uL [place] # (Auto) (0.11-0.59) K/uL Eos # (Auto) (0-0.5) K/uL Baso # (Auto) (0-0.2) K/uL Immature Gran # (Auto) (0.00-0.02) K/uL Sodium 129 L (136-145) mmol/L Potassium 4.0 (3.5-5.1) mmol/L Chloride 95 L (98-107) mmol/L Carbon Dioxide 26 (21-32) mmol/L Anion Gap 8.0 (3-11) BUN 15 (7-18) mg/dl Creatinine 0.79 (0.6-1.2) mg/dl Est Cr Clr Drug Dosing 49.5 ml/min Est GFR ( Amer) 86.7 Est GFR (Non-Af Amer) 74.8 BUN/Creatinine Ratio 18.3 (10-20) Glucose 81 (70-99) mg/dl Osmolality (280-300) mOsm/kg Calcium 8.5 (8.5-10.1) mg/dl Total Bilirubin (0.2-1) mg/dl AST (15-37) U/L ALT (12-78) U/L Alkaline Phosphatase (45-117) U/L Troponin I (0-0.045) ng/ml Total Protein (6.4-8.2) gm/dl Albumin (3.4-5.0) gm/dl Globulin (2.5-4.0) gm/dl Albumin/Globulin Ratio (0.9-2) Lipase (73-393) U/L Urine Color Urine Appearance (Clear) Urine pH (4.5-7.5) Ur Specific [place] (1.000-1.030) Urine Protein (Negative) Urine Glucose (UA) (Negative) Urine Ketones (Negative) Urine Blood (Negative) Urine Nitrite (Negative) Urine Bilirubin (Negative) Urine Urobilinogen (Negative) Ur Leukocyte Esterase (Negative) Urine WBC (Auto) (0-5) /hpf Urine RBC (Auto) (0-4) /hpf U Hyaline Cast (Auto) (0-5) /lpf U Epithel Cells (Auto) (0-5) /lpf Urine Bacteria (Auto) (Negative) Urine Osmolality (500-800) mOsm/kg Ur Random Sodium mmol/L COVID-19 Eval Order Hepatitis C Ab Screen Neg (Neg) SARS-CoV-2, RNA, NAAT (NEGATIVE) Blood Type O Positive Antibody Screen NEGATIVE 03/12/20 03/12/20 03/12/20 Range/Units 14:50 14:38 14:38 WBC (4.8-10.8) K/uL RBC (4.2-5.4) M/uL Hgb (12.0-16.0) g/dL Hct (37-47) % MCV (80-100) fL MCH (25-34) pg MCHC (32-36) g/dL RDW Std Deviation (36.4-46.3) fL RDW Coeff of Dmitri (11.5-14.5) % Plt Count (130-400) K/uL MPV (7.4-10.4) fL Immature Gran % (Auto) % Neut % (Auto) % Lymph % (Auto) % [place] % (Auto) % Eos % (Auto) % Baso % (Auto) % Neut # (Auto) (1.4-6.5) K/uL Lymph # (Auto) (1.2-3.4) K/uL [place] # (Auto) (0.11-0.59) K/uL Eos # (Auto) (0-0.5) K/uL Baso # (Auto) (0-0.2) K/uL Immature Gran # (Auto) (0.00-0.02) K/uL Sodium (136-145) mmol/L Potassium (3.5-5.1) mmol/L Chloride (98-107) mmol/L Carbon Dioxide (21-32) mmol/L Anion Gap (3-11) BUN (7-18) mg/dl Creatinine (0.6-1.2) mg/dl Est Cr Clr Drug Dosing ml/min Est GFR ( Amer) Est GFR (Non-Af Amer) BUN/Creatinine Ratio (10-20) Glucose (70-99) mg/dl Osmolality 269 L (280-300) mOsm/kg Calcium (8.5-10.1) mg/dl Total Bilirubin (0.2-1) mg/dl AST (15-37) U/L ALT (12-78) U/L Alkaline Phosphatase (45-117) U/L Troponin I (0-0.045) ng/ml Total Protein (6.4-8.2) gm/dl Albumin (3.4-5.0) gm/dl Globulin (2.5-4.0) gm/dl Albumin/Globulin Ratio (0.9-2) Lipase (73-393) U/L Urine Color Urine Appearance (Clear) Urine pH (4.5-7.5) Ur Specific [place] (1.000-1.030) Urine Protein (Negative) Urine Glucose (UA) (Negative) Urine Ketones (Negative) Urine Blood (Negative) Urine Nitrite (Negative) Urine Bilirubin (Negative) Urine Urobilinogen (Negative) Ur Leukocyte Esterase (Negative) Urine WBC (Auto) (0-5) /hpf Urine RBC (Auto) (0-4) /hpf U Hyaline Cast (Auto) (0-5) /lpf U Epithel Cells (Auto) (0-5) /lpf Urine Bacteria (Auto) (Negative) Urine Osmolality (500-800) mOsm/kg Ur Random Sodium mmol/L COVID[facility] C Ab Screen (Neg) SARS-CoV-2, RNA, NAAT NEGATIVE (NEGATIVE) Blood Type Antibody Screen 03/12/20 03/12/20 03/12/20 Range/Units 14:34 14:34 14:34 WBC (4.8-10.8) K/uL RBC (4.2-5.4) M/uL Hgb (12.0-16.0) g/dL Hct (37-47) % MCV (80-100) fL MCH (25-34) pg MCHC (32-36) g/dL RDW Std Deviation (36.4-46.3) fL RDW Coeff of Dmitri (11.5-14.5) % Plt Count (130-400) K/uL MPV (7.4-10.4) fL Immature Gran % (Auto) % Neut % (Auto) % Lymph % (Auto) % [place] % (Auto) % Eos % (Auto) % Baso % (Auto) % Neut # (Auto) (1.4-6.5) K/uL Lymph # (Auto) (1.2-3.4) K/uL [place] # (Auto) (0.11-0.59) K/uL Eos # (Auto) (0-0.5) K/uL Baso # (Auto) (0-0.2) K/uL Immature Gran # (Auto) (0.00-0.02) K/uL Sodium (136-145) mmol/L Potassium (3.5-5.1) mmol/L Chloride (98-107) mmol/L Carbon Dioxide (21-32) mmol/L Anion Gap (3-11) BUN (7-18) mg/dl Creatinine (0.6-1.2) mg/dl Est Cr Clr Drug Dosing ml/min Est GFR ( Amer) Est GFR (Non-Af Amer) BUN/Creatinine Ratio (10-20) Glucose (70-99) mg/dl Osmolality (280-300) mOsm/kg Calcium (8.5-10.1) mg/dl Total Bilirubin (0.2-1) mg/dl AST (15-37) U/L ALT (12-78) U/L Alkaline Phosphatase (45-117) U/L Troponin I (0-0.045) ng/ml Total Protein (6.4-8.2) gm/dl Albumin (3.4-5.0) gm/dl Globulin (2.5-4.0) gm/dl Albumin/Globulin Ratio (0.9-2) Lipase (73-393) U/L Urine Color Yellow Urine Appearance Clear (Clear) Urine pH 7.5 (4.5-7.5) Ur Specific [place] 1.014 (1.000-1.030) Urine Protein Negative (Negative) Urine Glucose (UA) Negative (Negative) Urine Ketones 1+ H (Negative) Urine Blood Trace H (Negative) Urine Nitrite Positive A (Negative) Urine Bilirubin Negative (Negative) Urine Urobilinogen Negative (Negative) Ur Leukocyte Esterase 1+ H (Negative) Urine WBC (Auto) >30 H (0-5) /hpf Urine RBC (Auto) 5-10 H (0-4) /hpf U Hyaline Cast (Auto) 5-10 H (0-5) /lpf U Epithel Cells (Auto) 5-10 H (0-5) /lpf Urine Bacteria (Auto) 2+ H (Negative) Urine Osmolality 454 L (500-800) mOsm/kg Ur Random Sodium 84 mmol/L COVID-19 Eval Order Hepatitis C Ab Screen (Neg) SARS-CoV-2, RNA, NAAT (NEGATIVE) Blood Type Antibody Screen 03/12/20 03/12/20 03/12/20 Range/Units 12:47 12:47 12:47 WBC 7.70 (4.8-10.8) K/uL RBC 3.31 L (4.2-5.4) M/uL Hgb 11.7 L (12.0-16.0) g/dL Hct 33.4 L (37-47) % MCV 100.9 H (80-100) fL MCH 35.3 H (25-34) pg MCHC 35.0 (32-36) g/dL RDW Std Deviation 45.4 (36.4-46.3) fL RDW Coeff of Dmitri 12.3 (11.5-14.5) % Plt Count 177 (130-400) K/uL MPV 9.5 (7.4-10.4) fL Immature Gran % (Auto) 0.3 % Neut % (Auto) 76.1 % Lymph % (Auto) 12.7 % [place] % (Auto) 9.2 % Eos % (Auto) 1.6 % Baso % (Auto) 0.1 % Neut # (Auto) 5.86 (1.4-6.5) K/uL Lymph # (Auto) 0.98 L (1.2-3.4) K/uL [place] # (Auto) 0.71 H (0.11-0.59) K/uL Eos # (Auto) 0.12 (0-0.5) K/uL Baso # (Auto) 0.01 (0-0.2) K/uL Immature Gran # (Auto) 0.02 (0.00-0.02) K/uL Sodium 128 L (136-145) mmol/L Potassium 4.3 (3.5-5.1) mmol/L Chloride 94 L (98-107) mmol/L Carbon Dioxide 26 (21-32) mmol/L Anion Gap 8.0 (3-11) BUN 20 H (7-18) mg/dl Creatinine 0.86 (0.6-1.2) mg/dl Est Cr Clr Drug Dosing 45.5 ml/min Est GFR ( Amer) 78.2 Est GFR (Non-Af Amer) 67.5 BUN/Creatinine Ratio 22.9 H (10-20) Glucose 84 (70-99) mg/dl Osmolality (280-300) mOsm/kg Calcium 9.1 (8.5-10.1) mg/dl Total Bilirubin 0.7 (0.2-1) mg/dl AST 48 H (15-37) U/L ALT 45 (12-78) U/L Alkaline Phosphatase 84 (45-117) U/L Troponin I < 0.015 (0-0.045) ng/ml Total Protein 7.0 (6.4-8.2) gm/dl Albumin 3.8 (3.4-5.0) gm/dl Globulin 3.2 (2.5-4.0) gm/dl Albumin/Globulin Ratio 1.2 (0.9-2) Lipase 191 (73-393) U/L Urine Color Urine Appearance (Clear) Urine pH (4.5-7.5) Ur Specific [place] (1.000-1.030) Urine Protein (Negative) Urine Glucose (UA) (Negative) Urine Ketones (Negative) Urine Blood (Negative) Urine Nitrite (Negative) Urine Bilirubin (Negative) Urine Urobilinogen (Negative) Ur Leukocyte Esterase (Negative) Urine WBC (Auto) (0-5) /hpf Urine RBC (Auto) (0-4) /hpf U Hyaline Cast (Auto) (0-5) /lpf U Epithel Cells (Auto) (0-5) /lpf Urine Bacteria (Auto) (Negative) Urine Osmolality (500-800) mOsm/kg Ur Random Sodium mmol/L COVID-19 Eval Order Hepatitis C Ab Screen (Neg) SARS-CoV-2, RNA, NAAT (NEGATIVE) Blood Type Antibody Screen PG Care Time/CCT Total # of Minutes Spent Total Time Spent with Patient: Total time spent is greater than 50% in coordination of care (as documented) at patient's floor/unit and/or counseling patient: Coding Level of Care Code 25617 Subseq Hosp Care Lvl 3 Diagnoses Dislocation of hip, left, closed S73.005A Encounter type: initial encounter Hypertension I10 UTI (urinary tract infection) N39.0 Acute hyponatremia E87.1 Encounter for perioperative consultation Z01.818 Hypothyroidism E03.9 Exercise-induced asthma J45.990 DVT prophylaxis Z29.9 (1) Dislocation of hip, left, closed Encounter type: initial encounter Qualified Code(s): S73.005A - Unspecified dislocation of left hip, initial encounter
[2020-03-13] MEDS ORDERED: BUPIVACAINE 0.5 % 5 MG/1 ML PF 10ML VIAL ONE (09:31)
[2020-03-13] MEDS ORDERED: HYDROmorphone INJ 2 MG/ML SYR/VIAL ONE (09:36)
[2020-03-13] MEDS ORDERED: ONDANSETRON INJ 2 MG/ML 2 ML VIAL ONE (12:00)
[2020-03-13] MEDS ORDERED: ROCURONIUM BROMIDE 10 MG/ML 5 ML VIAL IV ONE (12:00)
[2020-03-13] MEDS ORDERED: LIDOCAINE HCL 2% 2 ML VIAL/AMP(20MG/ML) INFIL ONE (12:00)
[2020-03-13] MEDS ORDERED: DEXAMETHASONE SOD INJ 4 MG/ML VIAL ONE (12:00)
[2020-03-13] MEDS ORDERED: PROPOFOL IV EMULSION 10 MG/ML 20 ML VIAL IV ONE (12:00)
[2020-03-13] MEDS ORDERED: ePHEDrine sulfate 50 MG/ML SYR ONE (12:01)
[2020-03-13 12:10] LABS: iSTAT Creatinine 0.8 mg/dl (0.6-1.3); iSTAT Hemoglobin 11.2 g/dl (12.0-16.0); iSTAT Ionized Calcium 1.17 mmol/l (1.12-1.32); iSTAT Potassium 3.9 mmol/L (3.3-5.0)
--- NOTE | 2020-03-13 12:15 | Post Operative Brief Note ---
Immediate Post Op Note v1 Date of Surgery March 13, 2020 Pre & Post Diagnosis Operation Date: 03/13/20 09:30 Pre-Op Diagnosis: LEFT HIP S/P DISOLOCATION TOTAL HIP ARTHROPLASTY Post-Op Diagnosis: LEFT HIP S/P DISOLOCATION TOTAL HIP ARTHROPLASTY I identified the patient and participated in the time-out.: Yes Procedure Operation Date: 03/13/20 09:30 Actual Procedures p Left Hip Revision of Constrained Liner(Left) - Richard Card MD Surgeon Richard Card MD Real Estate Officer melanie/inés Estimated Blood Loss 200 Findings Consistent with Post-Op Diagnosis Drains Dumont Catheter and Hemovac Drain
--- NOTE | 2020-03-13 12:42 | Operative Report ---
Post Operative Report Pre & Post Diagnosis Operation Date: 03/13/20 09:30 Pre-Op Diagnosis: LEFT HIP S/P DISOLOCATION TOTAL HIP ARTHROPLASTY Post-Op Diagnosis: LEFT HIP S/P DISOLOCATION TOTAL HIP ARTHROPLASTY I identified the patient and participated in the time-out.: Yes Procedure Operation Date: 03/13/20 09:30 Actual Procedures p Left Hip Revision of Constrained Liner(Left) - Richard Card MD Surgeon Richard Card MD Corporate Real Estate Manager melanie/inés Estimated Blood Loss 200 Findings Consistent with Post-Op Diagnosis Specimens None Drains Double-lumen Anesthesia Type General Complications none Disposition Accompanied Patient To Recovery: Yes Disposition: Recovery Room Description of Procedure As per Dr. Card's note, I assisted in scrubbing and draping certain parts of the procedure, and wound closure I attest to the content of the Intraoperative Record and any orders documented therein. Any exceptions are noted below.
--- NOTE | 2020-03-13 12:43 | Operative Report ---
Post Operative Report Pre & Post Diagnosis Operation Date: 03/13/20 09:30 Pre-Op Diagnosis: LEFT HIP S/P DISOLOCATION TOTAL HIP ARTHROPLASTY Post-Op Diagnosis: LEFT HIP S/P DISOLOCATION TOTAL HIP ARTHROPLASTY I identified the patient and participated in the time-out.: Yes Procedure Operation Date: 03/13/20 09:30 Actual Procedures p Left Hip Revision of Constrained Liner(Left) - Richard Card MD Surgeon DANISHA Card MD Drawbench Operator melanie/inés NAYLOR Estimated Blood Loss 200 Findings Consistent with Post-Op Diagnosis Specimens see operative report Drains hemovac left thigh Complications none Disposition Accompanied Patient To Recovery: Yes Disposition: Recovery Room Indications 74-year-old white female was seen in the ED yesterday after sustaining a left hip dislocation of her total hip prosthesis. Due to previous placement of a constrained liner, close reduction was not possible. She elected to proceed with surgical intervention and hopes of restoring function. Preoperative imaging was obtained. Description of Procedure Patient was taken to the operating room where she was given general anesthesia. She was prepped and draped in the usual sterile fashion. Please see Dr. Card's operative report for specifics of the procedure. I was present for the entire case from initial patient positioning through final wound closure. Assistance was provided in tissue retraction, hemostasis, hardware removal, trial implant placement, final implant placement, and final wound closure. Patient was taken to the recovery room in satisfactory condition. I attest to the content of the Intraoperative Record and any orders documented therein. Any exceptions are noted below.
--- NOTE | 2020-03-13 13:00 | Operative Report (OR) ---
DATE OF OPERATION: 03/13/2020 SURGEON: Richard Card MD. SANDWICH HAND: Viky. SECOND WEB MACHINE TENDER: Eflego Felipe PA-C. PREOPERATIVE DIAGNOSIS: Dislocated, constrained, mechanical failure liner, left total hip replacement. POSTOPERATIVE DIAGNOSIS: Dislocated, constrained, mechanical failure liner, left total hip replacement. OPERATION PERFORMED: Extraction of a mechanical failure, constrained liner with broken hardware, all elements removed, and revision of acetabulum with dual mobility hip system [employer], left hip. PERIOPERATIVE SITUATION: Medically cleared female with left hip pain following a mechanical failure of her constrained liner with a broken locking ring and dislocated prosthesis. At this point in time, due to this failed mechanically and obviously she has significant lumbar scoliosis, she is high risk for recurrent instability with standard hip. Due to the fact that this has failed with a constrained liner, it was necessary to try to improve the mechanical environment by revising her cup. She understood the risks and consequences of all this and that would be high risk for nerve injury, infection, recurrent instability and fracture. She cannot obviously sustain like this, so she wants to proceed with surgery. She states she understands the risks and consequences as well as her . SUMMARY OF IMPLANTS: Cup is a size 50 G7 [place]-[employer] multi-hole screws, 25 and 20 mm; liner is a 40 mm Ti liner, 67 dual mobility; bearing is a 40 mm dual mobility; femoral head is an Articul/Coleman 28+8.5. ESTIMATED BLOOD LOSS: Roughly 200 mL. CRYSTALLOID: Per anesthesia. DVT prophylaxis per protocol. DESCRIPTION OF PROCEDURE: The patient was appropriately identified, site verified, consent verified. Antibiotics confirmed as being given. The patient was placed in right lateral decubitus position, care taken not to move the hip very much. Once it was prepped and draped in usual routine fashion, the old incision was utilized. Full thickness flaps raised, care taken to protect the sciatic nerve, it was palpated, but a lot of scar. The hip was dislocated anteriorly. It was then reduced and then tedious dissection around the acetabulum carried out. Once this was all exposed, the hip was then dislocated. The locking ring removed. The femoral head removed. The poly liner removed. Then using the screwdriver, the 2 screws that were in there previously were removed and then using the osteotomes curved, the acetabulum was loosened and removed. There was minimal bone loss. This was then cleaned up and serially reamed up to a 50. This area was then packed and then tedious dissection was carried out to find the broken part of the locking ring, which required fluoroscopic control. It was much more superficial than previously thought; it was eventually found and removed. This wound was then all irrigated as well. Once this was done, the cup was then impacted into appropriate anteversion and inclination and secured with 2 screws, 25 and 20 mm in length. Excellent fixation was obtained. The liner was then seated. Multiple trials carried out. We elected to go with a +8.5 head to give a little bit better length match, even though it was noted to be slightly long. Once this was verified, the hip was dislocated. All the remaining trial elements were removed, permanent liner, permanent dual mobility system impacted into position and then the hip reduced. It was very marked stable hip with flexion to 120 degrees, being stable, flexion to 90 degrees, internal rotation to 50 degrees with no issues. Extension, adduction and external rotation, no issues. The leg lengths were within millimeters of equality with this side being slightly long. This was accepted based on her issues and her pelvis. Lumbar scoliosis and pelvis are playing into her instability. The procedure was then terminated. The wound was then irrigated copiously and closed in multiple layers using #2 Vicryl, 2-0 Vicryl and stainless steel clips. A drain was placed deep. Appropriate dressing was applied. The patient was transferred to recovery room in satisfactory condition having tolerated the procedure well. Overall prognosis for this hip is guarded based on her overall pathology. She will be on antibiotics overnight. She does have an asymptomatic UTI, which will be treated appropriately. DVT prophylaxis per protocol. No pathology pending. I attest to the content of the Intraoperative Record and any orders documented therein. Any exceptions are noted below. RUSSD
--- NOTE | 2020-03-13 13:03 | XRay Report ---
XR pelvis 1V supine HISTORY: 74 years-old Female revision acetabulum [total joint arthroplasty revision COMPARISON: Pelvis and left hip radiographs 03/12/2020 TECHNIQUE: AP view of the pelvis FINDINGS: Moderate right hip osteoarthritis. Degeneration of the imaged lower lumbar spine and pubic symphysis. No acute fracture, dislocation or unexpected opaque foreign body. Lateral skin abiola of the left h ip are noted along with left hip total joint arthroplasty. Revision of the acetabular component. Sati sfactory alignment of the hardware. Surgical drainage catheter is present with expected postoperative soft tissue swelling and deep tissue air of the left hip. IMPRESSION: Left hip total arthroplasty with expected postoperative changes. ACT 112: Negative or not required by law. The above report was generated using voice recognition software. It may contain grammatical, syntax o r spelling errors. Electronically signed by: Aníbal Murrieta M.D. 03/13/2020 1:01 PM
[2020-03-13] MEDS ORDERED: VANCOMYCIN HCL 750 MG in SODIUM CHLORIDE 0.9% 250 ML IV SCH (13:15)
[2020-03-13] MEDS ORDERED: METOCLOPRAMIDE HCL INJ 5 MG/ML 2 ML VIAL IV PRN (13:38)
[2020-03-13] MEDS ORDERED: NALOXONE HCL 0.4 MG/1 ML VIAL/CARP IV PRN (13:38)
[2020-03-13] MEDS: DOCUSATE SODIUM 100 MG CAP PO SCH ×2 (14:19→20:20)
[2020-03-13] MEDS: PANTOprazole 40 MG TAB PO SCH (14:20)
[2020-03-13] MEDS: KETOROLAC TROMETHAMINE 15 MG/ML VIAL IV SCH ×2 (14:30→20:15)
--- NOTE | 2020-03-13 15:17 | Anesthesiology Progress Note ---
Date of Service March 13, 2020 Anesthesia Post Procedure Vital Signs Vital Signs: Temp Pulse Pulse Pulse Resp BP Pulse Ox 03/13/20 14:38 36.4 C L 84 14 116/64 91 03/13/20 14:09 36.3 C L 82 14 99/63 L 94 03/13/20 13:37 36.4 C L 82 14 101/53 L 95 03/13/20 13:10 77 12 112/59 L 95 03/13/20 13:00 36.5 C 84 15 112/60 95 03/13/20 12:50 85 19 138/56 L 99 03/13/20 12:40 88 12 105/66 100 03/13/20 12:33 36.5 C 88 13 121/63 100 03/13/20 09:26 36.7 C 65 20 123/70 100 03/13/20 08:13 36.6 C 60 16 109/67 98 03/12/20 23:50 36.8 C 70 14 162/79 H 94 03/12/20 16:12 36.6 C 68 16 167/81 H 97 03/12/20 15:34 68 14 157/81 H 99 03/12/20 15:20 70 9 L 97 Pain Intensity Left Hip: Pain Intensity: 5 Transfer of Care Handoff Completed per policy Notes Mental Status: alert / awake / arousable and participated in evaluation Patient Amnestic to Procedure: Yes Nausea / Vomiting: adequately controlled Pain: adequately controlled Airway Patency, RR, SpO2: stable & adequate BP & HR: stable & adequate Hydration State: stable & adequate Anesthetic Complications: no major complications apparent and Pt Satisfied with anesthetic care
[2020-03-13] MEDS: CEFAZOLIN 2000MG 2,000 MG/15 ML SYR IV SCH (17:13)
[2020-03-13] MEDS ORDERED: TRANEXAMIC ACID / 0.7% NACL 1,000 MG/100 ML BAG IV ONE (18:00)
--- NOTE | 2020-03-13 18:03 | Electrocardiogram Report ---
Test Reason : Blood Pressure : / mmHG Vent. Rate : 068 BPM Atrial Rate : 068 BPM P-R Int : 190 ms QRS Dur : 126 ms QT Int : 462 ms P-R-T Axes : 079 083 068 degrees QTc Int : 491 ms Normal sinus rhythm Right bundle branch block Abnormal ECG Confirmed by Antione Rothman ([id number]) on 03/13/2020 6:03:31 PM Referred By: REFERRED SELF Confirmed By:Mane Rothman
[2020-03-13] MEDS ORDERED: MONTELUKAST SODIUM 10 MG TABLET PO SCH (21:00)
[2020-03-13] MEDS ORDERED: TEMAZEPAM 15 MG CAPSULE PO SCH ×2 (21:00→22:00)
[2020-03-13] MEDS ORDERED: SENNA 8.6 MG TAB PO SCH (21:00)
[2020-03-14] MEDS: CEFAZOLIN 2000MG 2,000 MG/15 ML SYR IV SCH (02:31)
[2020-03-14] MEDS: cefTRIAXone SODIUM 1,000 MG in DEXTROSE 5% 50 ML IV SCH (02:31)
[2020-03-14] MEDS: KETOROLAC TROMETHAMINE 15 MG/ML VIAL IV SCH ×2 (02:34→09:06)
[2020-03-14] MEDS ORDERED: LEVOTHYROXINE SODIUM 112 MCG TABLET PO SCH (06:30)
[2020-03-14 06:43] LABS: Hematocrit (blood only) 24.8 % (37-47); Hemoglobin 8.4 g/dL (12.0-16.0); Immature Granulocytes # (auto) 0.01 K/uL (0.00-0.02); Immature Granulocytes % (auto) 0.1 %; Lymphocytes # (auto) 0.61 K/uL (1.2-3.4); Mean Corpuscular Hemoglobin 34.9 pg (25-34); Mean Corpuscular Hgb Conc 33.9 g/dL (32-36); Mean Corpuscular Volume 102.9 fL (80-100); Mean Platelet Volume 9.5 fL (7.4-10.4); Monocytes # (auto) 0.86 K/uL (0.11-0.59); Monocytes % (auto) 12.7 %; Neutrophils % (auto) 78.2 %; Platelet Count 163 K/uL (130-400); Prothrombin Time 10.8 Seconds (9.0-12.0); RDW Coefficient of Variation 12.1 % (11.5-14.5); RDW Standard Deviation 45.3 fL (36.4-46.3); Red Blood Count 2.41 M/uL (4.2-5.4); White Blood Count 6.78 K/uL (4.8-10.8)
[2020-03-14 07:07] LABS: BUN Creatinine Ratio 14.5 (10-20); Calcium 7.9 mg/dl (8.5-10.1); Creatinine Clr Calc Pharmacy 43.9 ml/min; Est GFR (Non-African American) 64.7; Potassium 4.7 mmol/L (3.5-5.1)
[2020-03-14] MEDS ORDERED: SODIUM CHLORIDE 0.9% 250 ML IV PRN ×2 (07:17→08:09)
[2020-03-14 07:35] LABS: Thyroid Stimulating Hormone 1.16 uIu/ml (0.300-4.500)
[2020-03-14] MEDS ORDERED: dexAMETHasone 10 MG in SYRINGE 0 ML IV SCH (08:00)
[2020-03-14] MEDS ORDERED: Nursing to Pharmacy Communication SCH (08:30)
[2020-03-14] MEDS ORDERED: ACETAMINOPHEN 500 MG TAB PO SCH (08:30)
--- NOTE | 2020-03-14 08:34 | Hospitalist Progress Note ---
Date of Service March 14, 2020 Assessment & Plan (1) Dislocation of hip, left, closed: * 74yo female with HTN but no known CAD, CHF, dysrhythmia, or other cardiovascular disease presented after a fall. Hip/Pelvis Xray with Left hip total joint arthroplasty with superior and anterior dislocation of the femoral head prosthesis. Fractured metallic ring component of the prosthesis is displaced posteriorly. * POD#1 s/p LEFT hip revision with constrained liner with Dr. Calero. EBL roughly 200cc. Pre-op h/h 11.7/33.4. * PT/OT/pain management/DVT prophylaxis per primary service --> plans for home with nursing. CM assisting * Continue to treat UTI with Rocephin --> culture with enterobacter cloacae and switched to keflex per primary service --> would continue at discharge * H/h dropped to 8.4/24.8 -- acute blood loss from surgery as well as dilutional from IVF * 1u prbc transfused today * Repeat CBC this afternoon with improvement to 10.4/30.6 * Disposition per primary service, but prefer patient continues to be monitored overnight for stability on AM labs (2) Hypertension: * Continue to hold HCTZ for hypoNa (currently 131), valsartan for hypotension * Substituted carvedilol also on hold * BP 108/67 * Would continue to hold BP medications at discharge and resume valsartan tomorrow but hold HCTZ if being discharged today, then resume on Tuesday * PCP follow up about possibly increasing her antihypertensive agents if repeat BMP still with hyponatremia * IVF discontinued * Continue to monitor (3) UTI (urinary tract infection): * UA suggestive of UTI -- culture with enterobacter cloacae as above --> rocephin switched to keflex * Continue for total 7 days - rx sent (4) Acute hyponatremia: * Secondary to thiazide * Sodium levels in the past have been normal but recently started HCTZ as above, on hold * Na improved to 131-- Serum Osm low 269, Urine Osm 454L, Urine random Na 84. * Continue to hold HCTZ at discharge and f/u with PCP --> titrate up ARB vs add ition of different agent (5) Encounter for perioperative consultation: (6) Hypothyroidism: * TSh 12/2019 wnl. * Continue levothyroxine 112mcg (7) Exercise-induced asthma: * no recent issues (8) Acute blood loss anemia: * above -- received 1u PRBC today for hgb 8.4. repeat cbc afternoon as above (9) DVT prophylaxis: * Defer to orthopedics --> scds/christine new Thank you for allowing medicine team to participate in the care of Mrs. Archibald. Medicine will follow along if she remains inpatient Admission and Anticipated Discharge Date Admission Date: March 12, 2020 Supervising Physician Co-Signing Physician Notes PA Supervision Note: I did not personally see or examine the patient today, but I verified all oswald points of JOHNNIE Oswald's assessment and plan with the following exceptions/additions: None Subjective Patient evaluated late morning. Worked with physical therapy well but awaiting them to return as they got called away. Hemovac and dressing changed this morning by primary service. Pain controlled, much improved from yesterday. No fever, chills, chest pain, shortness of breath, lightheadedness, nausea, vomiting, dysuria. Confirms that she did have some urinary frequency but thought it was due to all the propel water she drinks. Discussed continuing oral abx for her uti at discharge as already switched to oral agents by Dr. Calero. Eating/drinking without difficulty. Passing gas but no BM yet. Plans for home with nursing at discharge either later today or tomorrow. Just finished unit of blood and awaiting repeat labs -- I ordered for 12:45. Review of Systems Review of Systems: All systems reviewed & are unremarkable except as noted in HPI & below Physical Exam Constitutional: well developed and well nourished; no acute distress and no altered mental status Eyes: PERRL ENMT: Mouth: + dentition abnormality and + chipped teeth (Front); no TMJ abnormality Mallampati Class: II Neck: trachea midline, no thyromegaly normal visual inspection Respiratory: normal respiratory effort, lungs clear to auscultation normal respiratory effort Auscultation: lungs clear to auscultation bilaterally Cardiovascular: Rate/Rhythm: regular rate and regular rhythm Heart Sounds: normal S1 and normal S2; no murmur Vessels: posterior tibial pulses present and dorsalis pedis pulses present; no JVD Extremities: no edema Gastrointestinal (Abdomen): normal bowel sounds, soft, nontender, no hepatosplenomegaly Musculoskeletal: Spine: normal cervical ROM and no pain with cervical ROM dressing to L hip c/d/i minimally tender to palpation around incision NVI 2+ pulses bilaterally Skin: no rashes, warm and dry Neurologic: moves all extremities Psychiatric: Orientation: alert and oriented x 3 Lymphatic: no cervical lymphadenopathy Results & Data Results & Data ([facility]) Vital Signs (Past 12 Hours) Vital Signs Temp Pulse Resp BP Pulse Ox 03/14/20 06:33 36.5 C 69 17 98/57 L 97 03/14/20 03:28 36.6 C 69 18 116/61 94 03/13/20 23:00 36.4 C L 61 16 122/62 95 Laboratory Results 03/14/20 03/14/20 03/14/20 Range/Units 06:15 06:15 06:15 WBC 6.78 (4.8-10.8) K/uL RBC 2.41 L (4.2-5.4) M/uL Hgb 8.4 L D (12.0-16.0) g/dL POC Hgb (12.0-16.0) g/dl Hct 24.8 L (37-47) % POC Hct (37-47) % MCV 102.9 H (80-100) fL MCH 34.9 H (25-34) pg MCHC 33.9 (32-36) g/dL RDW Std Deviation 45.3 (36.4-46.3) fL RDW Coeff of Dmitri 12.1 (11.5-14.5) % Plt Count 163 (130-400) K/uL MPV 9.5 (7.4-10.4) fL Immature Gran % (Auto) 0.1 % Neut % (Auto) 78.2 % Lymph % (Auto) 9.0 % [place] % (Auto) 12.7 % Eos % (Auto) 0.0 % Baso % (Auto) 0.0 % Neut # (Auto) 5.30 (1.4-6.5) K/uL Lymph # (Auto) 0.61 L (1.2-3.4) K/uL [place] # (Auto) 0.86 H (0.11-0.59) K/uL Eos # (Auto) 0.00 (0-0.5) K/uL Baso # (Auto) 0.00 (0-0.2) K/uL Immature Gran # (Auto) 0.01 (0.00-0.02) K/uL PT 10.8 (9.0-12.0) Seconds INR 1.0 (0.9-1.1) POC Sodium (135-144) mmol/L Sodium (136-145) mmol/L POC Potassium (3.3-5.0) mmol/L Potassium (3.5-5.1) mmol/L POC Chloride (101-112) mmol/L Chloride (98-107) mmol/L Carbon Dioxide (21-32) mmol/L POC Total CO2 (24-31) mmol/L Anion Gap (3-11) POC Anion Gap (16-25) mmol/L POC BUN (7-18) mg/dl BUN (7-18) mg/dl Creatinine (0.6-1.2) mg/dl POC Creatinine (0.6-1.3) mg/dl Est Cr Clr Drug Dosing ml/min Est GFR ( Amer) Est GFR (Non-Af Amer) BUN/Creatinine Ratio (-20) Glucose (70-99) mg/dl POC Glucose (other) (70-99) mg/dl Calcium (8.5-10.1) mg/dl POC Ioniz Calcium Tree (1.12-1.32) mmol/l Vitamin B12 Folate TSH (0.300-4.500) uIu/ml Blood Type Recheck Pending Crossmatch 03/14/20 03/14/20 03/13/20 Range/Units 06:15 06:15 11:52 WBC (4.8-10.8) K/uL RBC (4.2-5.4) M/uL Hgb (12.0-16.0) g/dL POC Hgb 11.2 L (12.0-16.0) g/dl Hct (37-47) % POC Hct 33 L (37-47) % MCV (80-100) fL MCH (25-34) pg MCHC (32-36) g/dL RDW Std Deviation (36.4-46.3) fL RDW Coeff of Dmitri (11.5-14.5) % Plt Count (130-400) K/uL MPV (7.4-10.4) fL Immature Gran % (Auto) % Neut % (Auto) % Lymph % (Auto) % [place] % (Auto) % Eos % (Auto) % Baso % (Auto) % Neut # (Auto) (1.4-6.5) K/uL Lymph # (Auto) (1.2-3.4) K/uL [place] # (Auto) (0.11-0.59) K/uL Eos # (Auto) (0-0.5) K/uL Baso # (Auto) (0-0.2) K/uL Immature Gran # (Auto) (0.00-0.02) K/uL PT (9.0-12.0) Seconds INR (0.9-1.1) POC Sodium 128 L (135-144) mmol/L Sodium 131 L (136-145) mmol/L POC Potassium 3.9 (3.3-5.0) mmol/L Potassium 4.7 D (3.5-5.1) mmol/L POC Chloride 95 L (101-112) mmol/L Chloride 100 (98-107) mmol/L Carbon Dioxide 25 (21-32) mmol/L POC Total CO2 22 L (24-31) mmol/L Anion Gap 6.0 (3-11) POC Anion Gap 17.0 (16-25) mmol/L POC BUN 12 (7-18) mg/dl BUN 13 (7-18) mg/dl Creatinine 0.89 (0.6-1.2) mg/dl POC Creatinine 0.8 (0.6-1.3) mg/dl Est Cr Clr Drug Dosing 43.9 ml/min Est GFR ( Amer) 75.0 Est GFR (Non-Af Amer) 64.7 BUN/Creatinine Ratio 14.5 (10-20) Glucose 119 H (70-99) mg/dl POC Glucose (other) 98 (70-99) mg/dl Calcium 7.9 L (8.5-10.1) mg/dl POC Ioniz Calcium Tree 1.17 (1.12-1.32) mmol/l Vitamin B12 Pending Folate Pending TSH 1.160 (0.300-4.500) uIu/ml Blood Type Recheck Crossmatch 03/12/20 Range/Units 14:50 WBC (4.8-10.8) K/uL RBC (4.2-5.4) M/uL Hgb (12.0-16.0) g/dL POC Hgb (12.0-16.0) g/dl Hct (37-47) % POC Hct (37-47) % MCV (80-100) fL MCH (25-34) pg MCHC (32-36) g/dL RDW Std Deviation (36.4-46.3) fL RDW Coeff of Dmitri (11.5-14.5) % Plt Count (130-400) K/uL MPV (7.4-10.4) fL Immature Gran % (Auto) % Neut % (Auto) % Lymph % (Auto) % [place] % (Auto) % Eos % (Auto) % Baso % (Auto) % Neut # (Auto) (1.4-6.5) K/uL Lymph # (Auto) (1.2-3.4) K/uL [place] # (Auto) (0.11-0.59) K/uL Eos # (Auto) (0-0.5) K/uL Baso # (Auto) (0-0.2) K/uL Immature Gran # (Auto) (0.00-0.02) K/uL PT (9.0-12.0) Seconds INR (0.9-1.1) POC Sodium (135-144) mmol/L Sodium (136-145) mmol/L POC Potassium (3.3-5.0) mmol/L Potassium (3.5-5.1) mmol/L POC Chloride (101-112) mmol/L Chloride (98-107) mmol/L Carbon Dioxide (21-32) mmol/L POC Total CO2 (24-31) mmol/L Anion Gap (3-11) POC Anion Gap (16-25) mmol/L POC BUN (7-18) mg/dl BUN (7-18) mg/dl Creatinine (0.6-1.2) mg/dl POC Creatinine (0.6-1.3) mg/dl Est Cr Clr Drug Dosing ml/min Est GFR ( Amer) Est GFR (Non-Af Amer) BUN/Creatinine Ratio (10-20) Glucose (70-99) mg/dl POC Glucose (other) (70-99) mg/dl Calcium (8.5-10.1) mg/dl POC Ioniz Calcium Tree (1.12-1.32) mmol/l Vitamin B12 Folate TSH (0.300-4.500) uIu/ml Blood Type Recheck Crossmatch See Detail PG Care Time/CCT Total # of Minutes Spent Total Time Spent with Patient: Total time spent is greater than 50% in coordination of care (as documented) at patient's floor/unit and/or counseling patient: Coding Level of Care Code 72699 Subseq Hosp Care Lvl 2 Diagnoses Dislocation of hip, left, closed S73.005A Encounter type: initial encounter Hypertension I10 UTI (urinary tract infection) N39.0 Acute hyponatremia E87.1 Encounter for perioperative consultation Z01.818 Hypothyroidism E03.9 Exercise-induced asthma J45.990 Acute blood loss anemia D62 DVT prophylaxis Z29.9 (1) Dislocation of hip, left, closed Encounter type: initial encounter Qualified Code(s): S73.005A - Unspecified dislocation of left hip, initial encounter
[2020-03-14] MEDS: PANTOprazole 40 MG TAB PO SCH (08:51)
[2020-03-14] MEDS: DOCUSATE SODIUM 100 MG CAP PO SCH (08:52)
[2020-03-14 08:57] LABS: Vitamin B12 > 2000 pg/ml (211-911)
--- NOTE | 2020-03-14 08:57 | Progress Notes ---
DATE: 03/14/2020 SUBJECTIVE Postop day #1 status post revision acetabular component for a mechanical failure of lock liner. At this point in time, the patient is stating she feels much more comfortable. She has no pain. She denies any chest pain, shortness of breath, fever, chills, nausea, vomiting or headache. She did feel a little lightheaded standing up and sitting in the chair. OBJECTIVE: VITAL SIGNS: Are stable, but not hypotensive relatively speaking for her. Hematocrit is below 25, it is 24.8. Of note, she started at 33, so this is not an unusual amount of blood loss; however, based on the transition and her complaints, I will transfuse 1 unit today. This will also potentially make her safer for discharge either later today or tomorrow. Wound dressing is clean, dry and intact. Drain is removed. Neurovascular check femoral sciatic nerve is normal. INR is 1.0. Electrolytes revealed that sodium is still a little bit low at 131, likely based on her antihypertensives. We will have antihypertensives adjusted per internal medicine hospitalist coverage. ASSESSMENT: Status post hip revision acetabulum with dual mobility liner to hopefully improve stability. I have again reemphasized to the patient that her lumbar spine stiffness from her degenerative scoliosis screening pelvic obliquity is increasing the amount of mobility in her hip which she needs to be careful of. She can be full weightbearing. Pain management as needed. We will transfuse just 1 unit today to try to get her hematocrit in and around the 30 range and that should get her close to her baseline and help minimize any of her potential orthostatic changes. Can transfuse over 2 hours, we will premedicate with Tylenol. Coumadin dose per nomogram today. No other indication for her to get her hematocrit back as high as possible at this point in time. We will continue to treat urinary tract infection. Potential discharge either later today or tomorrow pending her activity and her response to the transfusion.
[2020-03-14 08:58] LABS: Folate (Folic Acid) 20.31 ng/ml (>5.38)
[2020-03-14] MEDS ORDERED: ASCORBIC ACID 500 MG TAB PO SCH (09:00)
[2020-03-14] MEDS ORDERED: VALSARTAN 80 MG TAB PO SCH (09:00)
[2020-03-14] MEDS ORDERED: hydroCHLOROthiazide 25 MG TAB PO SCH (09:00)
[2020-03-14] MEDS ORDERED: MAGNESIUM OXIDE 400 MG TAB PO SCH (09:00)
[2020-03-14] MEDS ORDERED: FOLIC ACID 400 MCG TAB PO SCH (09:00)
[2020-03-14] MEDS ORDERED: FLUOXETINE HCL 20 MG CAP PO SCH (09:00)
[2020-03-14] MEDS ORDERED: MULTIVITAMIN TAB PO SCH (09:00)
[2020-03-14] MEDS ORDERED: FEXOFENADINE HCL 180 MG TAB PO SCH (09:00)
[2020-03-14] MEDS ORDERED: VALACYCLOVIR HCL 500 MG TABLET PO SCH (09:00)
[2020-03-14] MEDS ORDERED: CYANOCOBALAMIN 500 MCG TABLET (VITAMIN B-12) PO SCH (09:00)
[2020-03-14] MEDS ORDERED: CHOLECALCIFEROL 1,000 UNITS 25 MCG TAB PO SCH (09:00)
[2020-03-14] MEDS ORDERED: AMLODIPINE BESYLATE 5 MG TAB PO SCH (09:00)
[2020-03-14] MEDS: OXYCODONE/ACETAMINOPHEN 5mg/325mg TAB PO PRN (09:06)
--- NOTE | 2020-03-14 09:06 | Discharge Summary (DS) ---
DATE OF POTENTIAL DISCHARGE: 03/15/2020. CHIEF COMPLAINT: Left hip pain. HISTORY OF PRESENT ILLNESS: The patient admitted to the ER for a dislocated left hip prosthesis with the locking rim. This could not be reduced closed, it required open reduction due to her failure, also suggested that she be revised to a dual mobility cup. Please see previous admission detail notes and consent for this complicated procedure. PREADMISSION MEDICATIONS: Please see medication reconciliation sheet. PAST MEDICAL/PAST SURGICAL HISTORY: Rhinitis, chronic back pain, significant scoliosis with degenerative curve and spinal stenosis, depression, anxiety, exercise-induced asthma, Graves' disease, history of hypertension, hypothyroidism, post-ablative left lumbar radiculopathy, low back pain, multiple joint arthritis of the hand, scoliosis, spinal stenosis, thyroid disease, history of multiple hip surgeries, history of left knee replacement, history of anterior cruciate ligament reconstruction, right knee. FAMILY HISTORY: Remarkable for breast cancer, myocardial infarction, ovarian cancer, diabetes mellitus. Denies any colon cancer. SOCIAL HISTORY: Reveals she is . Does not smoke. Secondhand exposure at times. Alcohol yes socially. She is . She is retired. REVIEW OF SYSTEMS: Reveals no chest pain, shortness of breath, fever, chills, nausea, vomiting or headache. She did have some orthostatic changes in her hematocrit was 24.8, so she will receive a unit of blood. INR is 1.0. ASSESSMENT: Overall, doing well, will be discharged to home today or tomorrow depending on symptoms after treatment with transfusion and her ability to mobilize. More than likely it is looking like tomorrow. She also came in with an asymptomatic urinary tract infection. We will continue treatment for that. Lili follow up in 1 week for wound dressing change.
[2020-03-14] MEDS: cephALEXin 250 MG CAP PO SCH ×2 (09:07→12:38)
[2020-03-14 12:56] LABS: Hematocrit (blood only) 30.6 % (37-47); Hemoglobin 10.4 g/dL (12.0-16.0); Mean Platelet Volume 9.7 fL (7.4-10.4); Platelet Count 163 K/uL (130-400); RDW Coefficient of Variation 14.3 % (11.5-14.5); RDW Standard Deviation 51.9 fL (36.4-46.3); Red Blood Count 3.06 M/uL (4.2-5.4); White Blood Count 9.61 K/uL (4.8-10.8)
--- NOTE | 2020-03-14 15:43 | Orthopedic Progress Note ---
Date of Service March 14, 2020 Assessment & Plan (1) Status post revision of total hip: Patient will be discharged to home this afternoon. Continue Coumadin 4 mg daily through the weekend and have her blood checked on Tuesday. Follow-up in the office for staple removal on March 28 at 10:30 with Elfego. Continue total hip precautions. Use the walker when ambulatory. Continue with ice to the hip as needed for discomfort Prescription for Percocet will be sent to her pharmacy. Written discharge instructions have been provided. Admission and Anticipated Discharge Date Admission Date: March 12, 2020 Subjective Patient is seen in her room this afternoon. I did see her this morning and change her dressing. She had a low H&H this morning and did require transfusion of blood. It is completed and her H&H have improved. She now feels better and states she feels ready to go home. She has been up and ambulatory. She did receive PT/OT today. No other complaints. Review of Systems Review of Systems: Unchanged from yesterday. Physical Exam Physical Exam: General: Well-developed, well-nourished, elderly white female, in no acute distress. Sitting in a chair. Alert and oriented. Conversive. Skin: Warm and dry with good turgor. No rashes or lesions. No ecchymosis or erythema. Expected postoperative edema from surgery. [place] are intact. No active drainage. The patient is not diaphoretic. No abrasions. Musculoskeletal: Left hip has a postsurgical wound with abiola intact. No active drainage. Dressings are dry. Supple motion of the hip. She is able to rise from a chair easily. No discomfort with passive hip flexion and external rotation. Neurologic: Gross sensation is intact across the left lower extremity via soft touch. Results & Data ([facility]) Vital Signs (Past 12 Hours) Vital Signs Temp Pulse Pulse Resp BP BP Pulse Ox 03/14/20 15:12 36.5 C 57 L 16 134/69 98 03/14/20 12:32 36.4 C L 64 16 136/70 99 03/14/20 11:00 36.5 C 63 16 108/67 98 03/14/20 10:30 36.6 C 76 18 135/58 L 97 03/14/20 09:45 36.6 C 62 16 127/67 99 03/14/20 09:42 36.5 C 72 16 100/60 100 03/14/20 09:29 36.6 C 73 16 95/57 L 100 03/14/20 06:33 36.5 C 69 17 98/57 L 97 Laboratory Results H&H posttransfusion is 10.4 and 30.6. This is improved from 8.4 and 24.8.
[2020-03-17] MEDS ORDERED: INFLUENZA Vaccine HIGH DOSE 65+yrs 0.5 mL Syr IM ONE (09:00)
== END 2020-03-14 16:41 | disposition home health service (06) | DRG 467 ==
LOC: ED 11:35 → 3E 13:50

== ENCOUNTER 2022-03-24 06:24 | Observation (INO) ==
--- NOTE | 2022-03-10 13:55 | PAT Medication Instructions ---
Medication Instructions Date of Service March 10, 2022 Home Medications Medication Instructions Recorded Synthroid 112 mcg tablet 112 mcg PO QAM #90 tabs 06/30/21 (levothyroxine) fluoxetine 20 mg capsule (Prozac) 20 mg PO QAM #90 caps 12/02/21 valsartan 160 mg tablet 160 mg PO QAM #90 tabs 01/19/22 montelukast 10 mg tablet 10 mg PO PM #90 tabs 01/21/22 (Singulair) ascorbic acid (vitamin C) 500 mg tablet (Vitamin C) 500 mg PO PM cholecalciferol (vitamin D3) 50 mcg (2,000 unit) tablet (Vitamin D3) 2,000 unit PO QAM fexofenadine 180 mg tablet (Marely Allergy) 180 mg PO QAM magnesium 250 mg tablet 250 mg PO PM vitamin B12 500 mcg-folic acid 400 mcg tablet 1 tab PO QAM Women's One Daily 1 tab PO PM budesonide-formoterol HFA 80 mcg-4.5 mcg/actuation aerosol inhaler (Symbicort) 2 puff inhalation BID PRN Wheezing valacyclovir 500 mg tablet (Valtrex) 500 mg PO QAM Synthroid 112 mcg tablet (levothyroxine) 112 mcg PO QAM fluoxetine 20 mg capsule (Prozac) 20 mg PO QAM Osteo Bi-Flex 2 tab PO QPM valsartan 160 mg tablet 160 mg PO QAM montelukast 10 mg tablet (Singulair) 10 mg PO PM duloxetine 30 mg capsule,delayed release 30 mg PO QAM temazepam 15 mg capsule 15 mg PO HS sleep STOP taking 2 weeks before surgery (or as soon as possible if surgery is within 2 weeks) Osteo Bi-Flex 2 tab PO QPM DO NOT take the morning of surgery cholecalciferol (vitamin D3) 50 mcg (2,000 unit) tablet (Vitamin D3) 2,000 unit PO QAM fexofenadine 180 mg tablet (Marely Allergy) 180 mg PO QAM vitamin B12 500 mcg-folic acid 400 mcg tablet 1 tab PO QAM valsartan 160 mg tablet 160 mg PO QAM Take morning of surgery With a small sip of water, OTHERWISE NOTHING TO EAT OR DRINK AFTER MIDNIGHT: budesonide-formoterol HFA 80 mcg-4.5 mcg/actuation aerosol inhaler (Symbicort) 2 puff inhalation BID PRN Wheezing (if needed) valacyclovir 500 mg tablet (Valtrex) 500 mg PO QAM Synthroid 112 mcg tablet (levothyroxine) 112 mcg PO QAM fluoxetine 20 mg capsule (Prozac) 20 mg PO QAM duloxetine 30 mg capsule,delayed release 30 mg PO QAM Take evening before surgery ascorbic acid (vitamin C) 500 mg tablet (Vitamin C) 500 mg PO PM magnesium 250 mg tablet 250 mg PO PM Women's One Daily 1 tab PO PM budesonide-formoterol HFA 80 mcg-4.5 mcg/actuation aerosol inhaler (Symbicort) 2 puff inhalation BID PRN Wheezing (if needed) montelukast 10 mg tablet (Singulair) 10 mg PO PM temazepam 15 mg capsule 15 mg PO HS sleep Other Notes If you have any questions please call us at [phone] or [phone] or or [phone]
--- NOTE | 2022-03-12 13:31 | Anesthesiology Consultation ---
Date of Service March 12, 2022 Assessment & Plan (1) Encounter for pre-operative examination: - COVID screening: Per assessment on 03/12: No known COVID-19 positive contacts or current COVID-19 related symptoms. Travel screen negative. Patient vaccinated. At surgeon discretion if preop Covid testing being done. - Hyponatremia: Preop labs note low sodium at 128. [facility] with [facility]- per office visit 02/02/22 "chronic hyponatremia. 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 Urine osmolality was above 450." Sodium within patient's baseline. Case reviewed with Dr. Curran. He feels nothing further needed preoperatively from his perspective but does recommend recheck sodium level for AM DOS (order placed). - Awaiting surgeon-ordered PCP preop evaluation (scheduled 03/17; [facility] [place]). Chart Review Chart Review: Patient seen in Pre Admission Testing Teaching & Discussion Pre-Anesthesia Teaching/Discussion Notes: Instructed NPO after midnight before surgery,except medications with 15 cc of water. Medication instructions provided according to the PAT guidelines. History Surgery Operation Date: 03/24/22 09:00 Proposed Procedures p Right Total Knee Arthroplasty with Removal Hardware Right Knee - Richard Card MD Height/Weight Height: 4 ft 11 in Weight: 58.7 kg Allergies Allergy/AdvReac Type Severity Reaction Status Date / Time animal dander Allergy Unknown Congestion, Verified 03/12/22 13:56 watery eyes amlodipine AdvReac Intermediate LE Verified 03/10/22 10:13 swelling lisinopril AdvReac Intermediate "Sick in Verified 03/12/22 13:56 stomach" Medications Home Medications Medication Instructions Recorded Confirmed Last Taken ascorbic acid (vitamin C) 500 mg 500 mg PO PM 12/15/18 03/10/22 07/08/21 tablet (Vitamin C) cholecalciferol (vitamin D3) 50 2,000 unit PO QAM 12/15/18 03/10/22 07/08/21 mcg (2,000 unit) tablet (Vitamin D3) fexofenadine 180 mg tablet 180 mg PO QAM 12/15/18 03/10/22 07/08/21 (Marely Allergy) magnesium 250 mg tablet 250 mg PO PM 12/15/18 03/10/22 07/08/21 vitamin B12 500 mcg-folic acid 400 1 tab PO QAM 12/15/18 03/10/22 07/08/21 mcg tablet multivit-iron 18 mg-folic acid 400 1 tab PO PM 01/29/19 03/10/22 07/08/21 mcg-calcium 500 mg-minerals tablet (Women's One Daily) budesonide-formoterol HFA 80 2 puff inhalation BID PRN Wheezing 01/05/2103/1007/08/21 mcg-4.5 mcg/actuation aerosol inhaler (Symbicort) valacyclovir 500 mg tablet 500 mg PO QAM 01/05/21 03/10/22 07/08/21 (Valtrex) Synthroid 112 mcg tablet 112 mcg PO QAM #90 tabs 06/30/21 03/10/22 07/08/21 (levothyroxine) fluoxetine 20 mg capsule (Prozac) 20 mg PO QAM #90 caps 12/02/21 03/10/22 Unknown glucosamine-chondroitin 250 mg-200 2 tab PO QPM 01/12/22 03/10/22 Unknown mg tablet (Osteo Bi-Flex) valsartan 160 mg tablet 160 mg PO QAM #90 tabs 01/19/22 03/10/22 Unknown montelukast 10 mg tablet 10 mg PO PM #90 tabs 01/21/22 03/10/22 Unknown (Singulair) duloxetine 30 mg capsule,delayed 30 mg PO QAM 03/10/22 03/10/22 Unknown release temazepam 15 mg capsule 15 mg PO HS sleep 03/10/22 03/10/22 Unknown Past Medical History Medical History Arthritis Back, hip Chronic back pain Depression with anxiety Exercise-induced asthma stable Generalized osteoarthritis of multiple sites H/O Graves' disease s/p I 131 History of high blood pressure Hypothyroidism, postablative Left lumbar radiculopathy Osteoarthritis Peripheral neuropathy left hand Pulmonary nodules Stable per pt Scoliosis Spinal stenosis Tinnitus Exercise / Class Metabolic Activity III < 4 Walking/Shop/Light housework (one FS (no CP, no SOB)) Past Family History Family History Mother Breast cancer Father Myocardial infarction Aunt Ovarian cancer Breast cancer Other Family history of diabetes mellitus in father Denies family history of Colorectal cancer Past Surgical History Surgical History History of bilateral tubal ligation History of colonoscopy History of tonsillectomy History of tooth extraction History of total hip arthroplasty LEFT History of total knee replacement LEFT Hx of cataract extraction R/L Right ACL tear RECONSTRUCTIVE SURGERY Status post epidural steroid injection Status post revision of total hip LEFT HIP X3 Left hip revision (03/13/20): Grade view 1, MAC#3, ETT 7.0 at [facility]. No issues noted per post-op anesthesia progress note. Past Anesthesia History No Hx of Anesthesia Complications and No Family Hx of Anesthesia Complications History of PONV No Hx of PONV and No Hx of Motion Sickness Social History Smoking Status: Never smoker Do You Dip or Chew Tobacco: No Hx Alcohol Use: Yes Alcohol type: hard liquor alcohol intake frequency: a few times a week Hx Substance Use: No substance use type: does not use Review of Systems Patient denies chest pain, shortness of breath, fever, chills, cough, wheezing, palpitations. Physical Exam Vital Signs VITALS BP 148/75 P 69 TEMP 97.9 SP02 100%RA RESP 16 PHYSICAL Full cervical extension range of motion. Full TMJ range of motion. TMD 3 finger breaths Mallampati Score 1 Dentition: intact Lungs: clear throughout to auscultation Cardiac: regular rate and rhythm, no murmurs noted Spine: normal Carotid arteries: negative bruit Extremities: no edema Lab Results Anesthesia Preop Results Results Anesthesia Widget: WBC 8.95 K/ul (4.8-10.8) 03/12/22 Hgb 12.5 g/dl (12.0-16.0) 03/12/22 Hct 36.2 % (34.1-44.9) 03/12/22 Plt 232 K/uL (130-400) 03/12/22 Na 128 mmol/L (136-145) L 03/12/22 K 4.4 mmol/L (3.5-5.1) 03/12/22 Cl 92 mmol/L (98-107) L 03/12/22 CO2 26 mmol/L (21-32) 03/12/22 BUN 21 mg/dl (6-23) 03/12/22 Creat 1.02 mg/dl (0.6-1.2) 03/12/22 Glucose Level 97 mg/dl (70-99(Fasting)) 03/12/22 PT 10.7 Seconds (9.0-12.0) 03/12/22 PTT 28.5 Seconds (21.0-31.0) 03/12/22 INR 1.0 (0.9-1.1) 03/12/22 Urine Color Yellow 03/12/22 Urine Appearance Cloudy (Clear) A 03/12/22 Urine pH 6.5 (4.5-7.5) 03/12/22 Urine Specific [place] 1.012 (1.000-1.030) 03/12/22 Urine Protein Negative (Negative) 03/12/22 Urine Glucose (UA) Negative (Negative) 03/12/22 Urine Ketones Negative (Negative) 03/12/22 Urine Blood Negative (Negative) 03/12/22 Urine Nitrite Positive (Negative) A 03/12/22 Urine Bilirubin Negative (Negative) 03/12/22 Urine Urobilinogen Negative (Negative) 03/12/22 Urine Leukocyte Esterase 3+ (Negative) H 03/12/22 Urine WBC (Auto) >30 /hpf (0-5) H 03/12/22 Urine RBC (Auto) 0-4 /hpf (0-4) 03/12/22 Urine Hyaline Casts (Auto) 0 /lpf (0-5) 03/12/22 Urine Epithelial Cells (Auto) 0-5 /lpf (0-5) 03/12/22 Urine Bacteria (Auto) 4+ (Negative) H 03/12/22 Blood Type O Positive 03/12/22 Antibody Screen NEGATIVE 03/12/22 Testing Laboratory Results 03/12/22 URINE CULTURE enterobacter cloacae (surgeon's office made aware) Electrocardiogram Date: 03/12/22 NSR at 64bpm. iRBBB. Chest X-Ray Date: 03/12/22 FINDINGS: Cardiomediastinal and hilar silhouettes are unchanged. No pneumothorax, pleural effusion, airspace consolidation or overt pulmonary edema. Mild linear scarring versus atelectasis of the left lung base. Degenerative changes of the shoulders and spine. Mild sigmoidal scoliosis of the spine. Subcentimeter solid pulmonary nodules are better seen on the comparison chest CT. IMPRESSION: No acute process. COVID-19 Risk Screen Screening Information COVID-19 Screen Date: 03/12/22 Exposure 21 Days Family/Household +COVID Last 21 Days: No Exposure 10 Days Any COVID Exposure Last 10 Days: No Symptoms Last 10 Days Experienced COVID Sx Last 10 Days: No + COVID 0-90 Days COVID + in Last 0-90 Days: No
[~2022-03-24 06:24] MED LIST changes: -ACET-1256 PO; -ADVIN10/60 INH; -ALBUAER INH; -CHOL2000 PO; -CONJ0.3T3 PO; -CYAN10005 PO; -DICL-201 PO; -FLUO20CA34 PO; -LEVO100T PO; +LR 60ML/HR IV SCH; -MISCTAB78 PO; -MONT1TAB3 PO; -MULT-506 PO; -OMEG10002 PO; +ROPIVACAINE 0.5% HCL/PF 150 MG, BUPIVACAINE 0.75% MPF 20 ML, EPINEPHrine 0.15 MG, Ketor... INFIL SCH; -TEMA15CA4 PO; +TRANEXAMIC ACID 1,000 MG **IV Pre-op IV SCH; -VALA500T60 PO; +ceFAZolin 2000MG 2,000 MG/15 ML SYR IV SCH
--- NOTE | 2022-03-24 06:30 | History & Physical Bridge Note ---
Date of Service March 24, 2022 History & Physical Bridge Note I have examined the patient, reviewed the History & Physical and in the interval since the performance of the History & Physical I have noted the following changes of clinical significance: no changes noted
[2022-03-24] MEDS ORDERED: BUPIVACAINE 0.5 % 5 MG/1 ML PF 10ML VIAL ONE (06:40)
[2022-03-24] MEDS ORDERED: ROPIVACAINE 0.5% 5 MG/ML 30 ML VIAL ONE (06:40)
[2022-03-24] MEDS ORDERED: EPINEPHrine INJ 1 MG/ML AMP ONE (06:40)
[2022-03-24 07:28] LABS: BUN Creatinine Ratio 17.9 (10-20); Calcium 10.5 mg/dl (8.5-10.1); Creatinine Clr Calc Pharmacy 36.6 ml/min; Est GFR (African American) 59.9 ml/min; Est GFR (Non-African American) 51.7 ml/min; Potassium 4.2 mmol/L (3.5-5.1)
[2022-03-24] MEDS ORDERED: MIDAZOLAM HCL 1 MG/ML 2ML VIAL ONE (08:29)
[2022-03-24] MEDS ORDERED: PROPOFOL IV EMULSION 10 MG/ML 20 ML VIAL IV ONE (08:30)
[2022-03-24] MEDS ORDERED: LIDOCAINE 2% MPF LOCAL 5 ML VIAL INFIL ONE (08:30)
[2022-03-24] MEDS ORDERED: fentaNYL citrate 100 MCG/2 ML VIAL ONE (08:30)
[2022-03-24] MEDS ORDERED: ORTHO JOINT ANESTHETIC ONE (09:05)
[2022-03-24] MEDS ORDERED: NALOXONE HCL 0.4 MG/1 ML VIAL/CARP IV PRN ×2 (09:34→14:18)
[2022-03-24] MEDS ORDERED: PROMETHAZINE HCL 12.5 MG in SODIUM CHLORIDE 0.9% 50 ML IV PRN (09:34)
[2022-03-24] MEDS ORDERED: ONDANSETRON INJ 2 MG/ML 2 ML VIAL IV PRN ×2 (09:34→14:18)
[2022-03-24] MEDS ORDERED: HYDROmorphone INJ 1 MG/ML SYRINGE IV PRN (09:34)
[2022-03-24] MEDS ORDERED: fentaNYL citrate 100 MCG/2 ML VIAL IV PRN (09:34)
[2022-03-24] MEDS ORDERED: FLUMAZENIL 0.1 MG/1 ML 10 ML VIAL IV PRN (09:34)
[2022-03-24] MEDS ORDERED: ePHEDrine sulfate 50 MG/ML AMP IV PRN (09:34)
[2022-03-24] MEDS ORDERED: ATROPINE SULFATE 0.1 MG/ML 10ML SYR IV PRN (09:34)
--- NOTE | 2022-03-24 09:44 | Discharge Summary (DS) ---
DATE OF ADMISSION: 03/24/2022. DATE OF POTENTIAL DISCHARGE: 03/25/2022. CHIEF COMPLAINT: Right knee pain. HISTORY OF PRESENT ILLNESS: The patient underwent elective right total knee replacement for end-stage osteoarthritis of her right knee with marked varus flexion deformity and lateral tibial subluxation. PROBLEM LIST: Includes basal cell carcinoma of her arms, carpal tunnel, status post knee replacement on the left, status post hip replacement with revision on the left, lumbar stenosis with radiculopathy, degenerative scoliosis with spondylolisthesis, history of left knee replacement. DOCUMENTED MEDICATIONS: Include Marely, duloxetine, multivitamins, Osteo Bi- Flex, fish oil, Prozac, Restoril, Singulair, Synthroid, Valtrex, vitamin B, vitamin C, vitamin D, calcium supplement. Neurontin, p.r.n. use of amoxicillin and triamcinolone cream. Hospital course has been uneventful at this point in time, had underwent right total knee replacement. There was some hardware that needed to be adjusted from her ACL reconstruction. FAMILY HISTORY: Remarkable for breast cancer, liver carcinoma, heart attack. ASSESSMENT: Status post right knee replacement. Will be discharged to home if she does well on 03/25/2022. DVT prophylaxis per protocol with Coumadin. Job ID: [id number] [facility]
--- NOTE | 2022-03-24 11:05 | Post Operative Brief Note ---
Immediate Post Op Note v1 Date of Surgery March 24, 2022 Pre & Post Diagnosis Operation Date: 03/24/22 08:40 Pre-Op Diagnosis: Right Knee Degenerative Joint Disease Post-Op Diagnosis: Right Knee Degenerative Joint Disease I identified the patient and participated in the time-out.: Yes Procedure Operation Date: 03/24/22 08:40 Actual Procedures p Right Total Knee Arthroplasty with Removal Hardware Right Knee(Right) - Richard Card MD Surgeon Richard Card MD Small Business Sales Representative Ruth/Jenna Estimated Blood Loss 25 Findings Consistent with Post-Op Diagnosis
--- NOTE | 2022-03-24 11:14 | Operative Report ---
Post Operative Report Pre & Post Diagnosis Operation Date: 03/24/22 08:40 Pre-Op Diagnosis: Right Knee Degenerative Joint Disease Post-Op Diagnosis: Right Knee Degenerative Joint Disease I identified the patient and participated in the time-out.: Yes Procedure Operation Date: 03/24/22 08:40 Actual Procedures p Right Total Knee Arthroplasty with Removal Hardware Right Knee(Right) - Richard Card MD Surgeon DANISHA Card MD Route Inspector Ruth/Matteo NAYLOR Estimated Blood Loss 25 Findings Consistent with Post-Op Diagnosis see operative report Specimens see operative report Drains none Complications none Disposition Accompanied Patient To Recovery: Yes Indications This 76-year-old female presented to the office with complaints of persisting right knee pain. She had tried conservative care measures including activity modification, injection therapy, and use of an assistive device, without improvement. She elected to proceed with surgical intervention after being ed ucated about potential risks and outcomes. Preoperative imaging was obtained. Description of Procedure Patient was administered a spinal anesthetic and then taken to the operating room where she was given sedation. She was prepped and draped in the usual sterile fashion. Please see Dr. Card's operative report for specifics of the procedure. I was present for the entire case from initial patient positioning through final wound closure. Assistance was provided in tissue retraction, hemostasis, trial implant placement, final implant placement, and final wound closure. Patient was taken to the recovery room in satisfactory condition. I attest to the content of the Intraoperative Record and any orders documented therein. Any exceptions are noted below.
--- NOTE | 2022-03-24 11:44 | Progress Notes ---
SUBJECTIVE: Postop check status post right total knee replacement and removal of deep hardware, femur, and tibia. She is doing well. Denies chest pain, shortness of breath, fever, chills, nausea, vomiting, or hea dache. OBJECTIVE: Vital signs are stable. She is afebrile. Neurovascular check limited by spinal. Wound dressing clean, dry, and intact. Postop x-rays look excellent. ASSESSMENT: Doing well status post right total knee replacement. Continue with care pathway. Discharge home ponce after dressing change. PT and OT. Job ID: [id number]
--- NOTE | 2022-03-24 11:46 | Operative Report (OR) ---
DATE OF PROCEDURE: 03/24/2022. SURGEON: Richard Card MD. EXPLOSIVE OPERATOR: Sony Miranda MD SECOND EXPLOSIVE OPERATOR: Elfego Felipe PA-C. PREOPERATIVE DIAGNOSES: Right knee osteoarthritis with retained hardware. Varus flexion deformity, right knee. POSTOPERATIVE DIAGNOSES: Right knee osteoarthritis with retained hardware. Varus flexion deformity, right knee. OPERATION PERFORMED: Cemented right total knee replacement, removal of deep hardware, femur and yazan sofia of deep hardware, tibia. PERIOPERATIVE SITUATION: Medically cleared female with intractable knee pain, history of remotely of having an ACL reconstruction. No retained hardware. That is going to be in the way of the knee rep lacement, so that needs to be removed. These were in for decades, so it would be hard to get out. A ppropriate tools and instrumentation were ordered. She has a flexion varus deformity with tricompart mental osteoarthritis, wished to proceed with knee replacement. This is in the right knee. DESCRIPTION OF PROCEDURE: The patient was appropriately identified, site verified, consent verified. Antibiotics were confirmed as being given. The right lower extremity was prepped and draped in the usual routine fashion. Tourniquet was inflated to 300 mmHg after exsanguination of the limb with a rubber Esmarch bandage for a total of 54 minutes. The old distal incision from the ACL was utilized and extended proximally. Full thickness flaps raised. Parapatellar arthrotomy performed. Synovecto my completed. Appropriate release of the extensor mechanism internally performed. Patella was everte d. Complete synovectomy was performed. The menisci were then resected. The cruciates were then res ected after the distal femoral drill hole was made. Once this was all done and the tibial could be s ubluxated, attention was turned to getting out the bone abiola that were covered with bone. A bur w as used to uncover them, find and locate and loosen them and then removed them without fracturing or causing any damage to the tibia. There were two bone abiola. Once this was done, proximally the fe mur was palpated until the screw was felt. The soft tissue over this area was then cleaned up. This was then removed and all the sutures that could be removed was removed as well as a large cortical s crew with a washer. The knee was then flexed. The distal femur resected 14 mm, the proximal tibia resected 4 mm, the ext ension gap was excellent. The femur was then sized to a 2, appropriate cutting blocks applied. Ante rior and posterior condylar chamfer cuts were made. Flexion gap was checked, it was excellent. The box cut was then made and the size 2 fit well. Tibia fit best with a 2.5 and due to the weakness fro m the bone abiola, probably takes a larger. This was then broached and reamed appropriately and a 1 0 mm spacer offered excellent stability in extension, mid range flexion and full flexion. The patell a tracked well. The patella was then resected leaving 14 mm and a 35 button drilled into position an d tracked well. Orthomix was then injected all about the knee. The wound was then irrigated with Be tadine Pulsavac and the permanent cemented in position -- tibia, femur, and patella in that order. A t 12 minutes, the tourniquet was let down. There was no major bleeding. At 14 minutes, the knee was flexed. The trial spacer removed. The wound was irrigated. There was no cement removal required. Betadine placed. The permanent liner seated, the knee reduced and closed at 30 degrees of flexion wi th #2 Vicryl, 2-0 Vicryl and stainless steel clips. Appropriate dressing applied. The patient was t ransferred to recovery room in satisfactory condition, having tolerated the procedure well. SUMMARY OF IMPLANTS: Size 2 posterior cruciate substituting femur, size 2 x 10 insert, size 35 burr la, tibial tray 2.5, rotating platform, two bags of Palacos G cement. These were all J and J rotatin g platform knee implants. DVT prophylaxis per protocol. PATHOLOGY: Pending on bone. Job ID: [id number]
--- NOTE | 2022-03-24 12:26 | XRay Report ---
RIGHT KNEE 2 VIEWS History: Right total knee arthroplasty. Degenerative arthritis. Postop. FINDINGS: The patient is status post a right total knee arthroplasty. The hardware is intact. No frac ture or dislocation. Skin abiola are in place. IMPRESSION: Right total knee arthroplasty. No evidence for hardware complication. ACT 112: Negative or not required by law. Electronically signed by: Martin Lin M.D. 03/24/2022 12:25 PM
--- NOTE | 2022-03-24 13:31 | Anesthesiology Progress Note ---
Date of Service March 24, 2022 Anesthesia Post Procedure Vital Signs Vital Signs: Temp Pulse Pulse Resp BP Pulse Ox O2 Del Method 03/24/22 13:20 79 14 147/70 H 97 Room Air 03/24/22 13:10 72 14 137/71 97 Room Air 03/24/22 13:00 72 16 140/86 96 Room Air 03/24/22 12:50 72 12 125/66 97 Room Air 03/24/22 12:40 74 20 134/75 96 Room Air 03/24/22 12:30 67 18 123/64 95 Room Air 03/24/22 12:20 76 18 121/65 94 Room Air 03/24/22 12:10 75 20 113/67 96 Room Air 03/24/22 12:00 75 16 119/63 96 Room Air 03/24/22 11:50 74 18 123/64 96 Room Air 03/24/22 11:40 75 20 121/64 95 Room Air 03/24/22 11:30 76 18 119/63 98 Room Air 03/24/22 11:20 78 18 121/63 100 Oxymask 03/24/22 11:13 36.4 C L 90 22 116/79 100 Oxymask 03/24/22 06:58 36.4 C L 85 20 173/76 H 98 Room Air 03/24/22 06:58 Room Air O2 Flow Rate 03/24/22 13:20 03/24/22 13:10 03/24/22 13:00 03/24/22 12:50 03/24/22 12:40 03/24/22 12:30 03/24/22 12:20 03/24/22 12:10 03/24/22 12:00 03/24/22 11:50 03/24/22 11:40 03/24/22 11:30 03/24/22 11:20 3 03/24/22 11:13 6 03/24/22 06:58 03/24/22 06:58 Transfer of Care Handoff Completed per policy Notes Mental Status: alert / awake / arousable Patient Amnestic to Procedure: Yes Nausea / Vomiting: adequately controlled Pain: adequately controlled Airway Patency, RR, SpO2: stable & adequate BP & HR: stable & adequate Hydration State: stable & adequate Neuraxial Anesthesia: was administered and sensory block is resolving Anesthetic Complications: no major complications apparent
[2022-03-24] MEDS ORDERED: bisacodyL 10 MG SUPP PR PRN (14:18)
[2022-03-24] MEDS ORDERED: ALUMINUM/MAGNESIUM SUSP 30 ML UDC PO PRN (14:18)
[2022-03-24] MEDS ORDERED: ORTHO WARFARIN NOMOGRAM SCH (14:18)
[2022-03-24] MEDS ORDERED: METOCLOPRAMIDE HCL INJ 5 MG/ML 2 ML VIAL IV PRN (14:18)
[2022-03-24] MEDS ORDERED: HYDROmorphone INJ 0.5 MG/0.5 ML SYR IV PRN (14:18)
[2022-03-24] MEDS ORDERED: SODIUM CHLORIDE 0.9% 1000ML 1,000 ML IV SCH (14:18)
[2022-03-24] MEDS ORDERED: MAGNESIUM HYDROXIDE SUSP 30 ML UDC PO PRN (14:18)
[2022-03-24] MEDS ORDERED: VANCOMYCIN CONSULT ACTIVE PRN (14:18)
[2022-03-24] MEDS ORDERED: diphenhydrAMINE 50 MG/ML VIAL IV PRN (14:18)
[2022-03-24] MEDS ORDERED: FLUTICASONE/VILANTEROL 100/25MCG 14 PUFFS/INHALER INH PRN (14:41)
[2022-03-24] MEDS ORDERED: VANCOMYCIN HCL 1,000 MG in SODIUM CHLORIDE 0.9% 250 ML IV ONE (14:45)
[2022-03-24] MEDS: ACETAMINOPHEN 500 MG TAB PO SCH ×2 (15:59→22:06)
[2022-03-24] MEDS: GABAPENTIN 300 MG CAP PO SCH ×2 (15:59→20:20)
[2022-03-24] MEDS: KETOROLAC TROMETHAMINE 15 MG/ML VIAL IV SCH ×2 (16:00→22:06)
[2022-03-24] MEDS ORDERED: WARFARIN SOD 5 MG TAB PO STA (16:29)
[2022-03-24] MEDS ORDERED: INFLUENZA VACCINE HIGH DOSE PF 65+ 0.7 ML SYR IM ONE (16:38)
[2022-03-24] MEDS ORDERED: TRANEXAMIC ACID / 0.7% NACL 1,000 MG/100 ML BAG IV SCH (17:30)
[2022-03-24] MEDS: FERROUS GLUCONATE 324 MG TAB PO SCH (17:47)
[2022-03-24] MEDS: ASCORBIC ACID 500 MG TAB PO SCH (17:48)
[2022-03-24] MEDS: ceFAZolin 2000MG 2,000 MG/15 ML SYR IV SCH (17:48)
[2022-03-24] MEDS: DOCUSATE SODIUM 100 MG CAP PO SCH (20:18)
[2022-03-24] MEDS: SODIUM CHLORIDE 1 GM TABLET PO SCH (20:21)
[2022-03-24] MEDS ORDERED: MONTELUKAST SODIUM 10 MG TABLET PO SCH (21:00)
[2022-03-24] MEDS ORDERED: MAGNESIUM OXIDE 400 MG TAB PO SCH (21:00)
[2022-03-24] MEDS ORDERED: SENNA 8.6 MG TAB PO SCH (21:00)
[2022-03-24] MEDS ORDERED: TEMAZEPAM 15 MG CAPSULE PO SCH (21:00)
[2022-03-25] MEDS: ceFAZolin 2000MG 2,000 MG/15 ML SYR IV SCH (01:29)
[2022-03-25] MEDS: KETOROLAC TROMETHAMINE 15 MG/ML VIAL IV SCH ×2 (04:00→09:57)
[2022-03-25] MEDS: oxyCODONE HCL IR 5 MG TAB (IMMEDIATE RELEASE) PO PRN ×3 (04:00→13:28)
[2022-03-25] MEDS: ACETAMINOPHEN 500 MG TAB PO SCH (05:53)
[2022-03-25 06:12] LABS: Hemoglobin 9.5 g/dl (12.0-16.0); Mean Corpuscular Hemoglobin 34.4 pg (25.0-34.0); Mean Corpuscular Hgb Conc 35.2 g/dL (32.0-36.0); Mean Corpuscular Volume 97.8 fL (80.0-100.0); Mean Platelet Volume 9.8 fL (9.4-12.3); Platelet Count 169 K/uL (130-400); RDW Coefficient of Variation 13.2 % (11.5-14.5); RDW Standard Deviation 47.2 fL (36.4-46.3); Red Blood Count 2.76 M/uL (3.93-5.22); White Blood Count 11.98 K/ul (4.8-10.8)
[2022-03-25 06:21] LABS: Prothrombin Time 10.8 Seconds (9.0-12.0)
[2022-03-25 06:30] LABS: BUN Creatinine Ratio 19.7 (10-20); Calcium 9.2 mg/dl (8.5-10.1); Creatinine Clr Calc Pharmacy 31.8 ml/min; Est GFR (African American) 50.5 ml/min; Est GFR (Non-African American) 43.6 ml/min; Potassium 4.5 mmol/L (3.5-5.1)
[2022-03-25] MEDS ORDERED: LEVOTHYROXINE SODIUM 112 MCG TABLET PO SCH (06:30)
--- NOTE | 2022-03-25 07:05 | Progress Notes ---
DATE OF SERVICE: 03/25/2022 SUBJECTIVE: Postop check. Doing well, has no major issues. Denies any chest pain, shortness of cary ath, fever, chills, nausea, vomiting or headache. OBJECTIVE: VITAL SIGNS: Stable. She is afebrile. EXTREMITIES: Assessment of her legs revealed no calf tenderness. Good neurovascular check of femora l sciatic nerve. LABORATORIES: Hematocrit stable at 27. Electrolytes are good. INR is 1.0. ASSESSMENT AND PLAN: Overall doing well. Okay for discharge to home today after physical therapy an d occupational therapy and dressing change. Coumadin dose per nomogram. Needs to be careful of her hip as well. She was advised of this. Job ID: [id number]
[2022-03-25] MEDS ORDERED: dexAMETHasone 10 MG in SYRINGE 0 ML IV SCH (08:00)
[2022-03-25] MEDS: SODIUM CHLORIDE 1 GM TABLET PO SCH (08:10)
[2022-03-25] MEDS: DOCUSATE SODIUM 100 MG CAP PO SCH (08:46)
[2022-03-25] MEDS: ASCORBIC ACID 500 MG TAB PO SCH (08:46)
[2022-03-25] MEDS: GABAPENTIN 300 MG CAP PO SCH (08:46)
[2022-03-25] MEDS: FERROUS GLUCONATE 324 MG TAB PO SCH (08:46)
[2022-03-25] MEDS ORDERED: valACYclovir HCL 500 MG TABLET PO SCH (09:00)
[2022-03-25] MEDS ORDERED: FEXOFENADINE HCL 180 MG TAB PO SCH (09:00)
[2022-03-25] MEDS ORDERED: VALSARTAN 80 MG TAB PO SCH (09:00)
[2022-03-25] MEDS ORDERED: DULoxetine HCL 30 MG CAP PO SCH (09:00)
[2022-03-25] MEDS ORDERED: MULTIVITAMIN TAB PO SCH (09:00)
[2022-03-25] MEDS ORDERED: WARFARIN SOD 5 MG TAB PO STA (09:24)
--- NOTE | 2022-03-25 09:29 | Orthopedic Progress Note ---
Date of Service March 25, 2022 Assessment & Plan (1) S/P total knee arthroplasty: Plan: PT/OT Ice with easy wrap Immobilizer use for the first of 48 hours postoperatively Weightbearing as tolerated with walker assistance New dressing applied this morning DVT prophylaxis with Coumadin and ONUR stockings Goal INR 1.8-2.2 Plan is to discharge home later today with in-home physical therapy for the first 2 weeks postoperatively Follow-up with [facility] orthopedics as previously scheduled With questions contact our clinic at [phone] Admission and Anticipated Discharge Date Admission Date: March 24, 2022 Subjective This 76-year-old female is day 1 status post right total knee arthroplasty. She states she is doing very well. She is currently working with physical therapy. She states that she feels she is safe to be discharged home later this afternoon. Patient states that her pain is well controlled with p.o. pain medication. Currently she denies chest pain, shortness of breath, fever, chills, sweats, lethargy, numbness or tingling in her right lower extremity. She also denies nausea, vomiting or difficulty voiding. Review of Systems Review of Systems: All systems reviewed & are unremarkable except as noted in Subjective Physical Exam Physical Exam: Right knee: Outer dressings were removed. Surgical incision site is closed completely with abiola in place. There is no active drainage. Patient is able to perform an active straight leg raise test. She is able to actively dorsi and plantarflex her foot without difficulty. Quad strength is 3+ out of 5. Active knee range of motion from 0 to 80 degrees causes no pain. Patient's calf is soft and supple nontender to palpation. She is neurovascular intact in the right lower extremity. Peripheral pulses are 2+. Capillary fill is less than 2 seconds. Results & Data ([facility]) Vital Signs (Past 12 Hours) Vital Signs Temp Pulse Pulse Resp BP Pulse Ox O2 Del Method 03/25/22 08:02 36.5 C 69 18 160/80 H 97 Room Air 03/25/22 03:51 36.6 C 77 16 167/79 H 96 Room Air 03/24/22 23:00 36.8 C 76 16 134/67 97 Room Air Diagnostic Findings Laboratory Results WBC 11.98 K/ul (4.8-10.8) H 03/25/22 05:34 RBC 2.76 M/uL (3.93-5.22) L 03/25/22 05:34 Hgb 9.5 g/dl (12.0-16.0) L 03/25/22 05:34 Hct 27.0 % (34.1-44.9) L 03/25/22 05:34 MCV 97.8 fL (80.0-100.0) 03/25/22 05:34 MCH 34.4 pg (25.0-34.0) H 03/25/22 05:34 MCHC 35.2 g/dL (32.0-36.0) 03/25/22 05:34 RDW Std Deviation 47.2 fL (36.4-46.3) H 03/25/22 05:34 RDW Coeff of Dmitri 13.2 % (11.5-14.5) 03/25/22 05:34 Plt Count 169 K/uL (130-400) 03/25/22 05:34 MPV 9.8 fL (9.4-12.3) 03/25/22 05:34 PT 10.8 Seconds (9.0-12.0) 03/25/22 05:34 INR 1.0 (0.9-1.1) 03/25/22 05:34 Sodium 134 mmol/L (136-145) L 03/25/22 05:34 Potassium 4.5 mmol/L (3.5-5.1) 03/25/22 05:34 Chloride 103 mmol/L (98-107) 03/25/22 05:34 Carbon Dioxide 25 mmol/L (21-32) 03/25/22 05:34 Anion Gap 6 (3-11) 03/25/22 05:34 BUN 24 mg/dl (6-23) H 03/25/22 05:34 Creatinine 1.22 mg/dl (0.6-1.2) H 03/25/22 05:34 Est Cr Clr Drug Dosing 31.8 ml/min 03/25/22 05:34 Est GFR ( Amer) 50.5 ml/min 03/25/22 05:34 Est GFR (Non-Af Amer) 43.6 ml/min 03/25/22 05:34 BUN/Creatinine Ratio 19.7 (10-20) 03/25/22 05:34 Glucose 110 mg/dl (70-99(Fasting)) H 03/25/22 05:34 Calcium 9.2 mg/dl (8.5-10.1) 03/25/22 05:34 SARS-CoV-2, RNA, NAAT NEGATIVE (NEGATIVE) 03/24/22 Unknown Impressions Knee X-Ray 03/24/22 11:05 RIGHT KNEE 2 VIEWS History: Right total knee arthroplasty. Degenerative arthritis. Postop. FINDINGS: The patient is status post a right total knee arthroplasty. The hardware is intact. No fracture or dislocation. Skin abiola are in place. IMPRESSION: Right total knee arthroplasty. No evidence for hardware complication. ACT 112: Negative or not required by law. Electronically signed by: Martin Lin M.D. 03/24/2022 12:25 PM
== END 2022-03-25 13:52 | disposition home health service (06) ==
LOC: ASU 06:24 → 3E 06:24